=== PATIENT | female | born 1965 | race Caucasian/White ===

== ENCOUNTER 2018-01-05 11:10 | Emergency (ER) | payer MEDICAID, SELFPAY ==
[2018-01-05 11:18] VITALS: BP 162/67; PULSE 85; RESP 22; TEMP 37.2; O2SAT 99
[2018-01-05 12:00] LABS: Abs Immature Grans 0.02 k/cumm (0.0-0.09); Absolute Basophil Count 0.03 k/cumm (0.0-0.2); Absolute Eosinophil Count 0.13 k/cumm (0.0-0.7); Absolute Lymphocyte Count 3.31 k/cumm (1.2-3.4); Absolute Monocyte Count 0.45 k/cumm (0.11-0.7); Absolute Neutrophil Count 4.76 k/cumm (1.2-6.7); Basophils % 0.3; Eosinophils % 1.5; HCT 41.5 % (36.0-46.0); HGB 14.3 g/dL (12.0-15.5); Immature Grans % 0.2; Mean Corp. HGB Concentration 34.5 g/dL (32.0-36.0); Mean Corpuscular Hemoglobin 31.4 pg (27.0-33.0); Mean Platelet Volume 8.9 fL (8.0-11.0); Monocytes % 5.2; Neutrophils % 54.8; Platelet Count 421 x1000/uL (130-400); RBC 4.56 m/cumm (4.00-5.20); RBC Distribution Width 13.9 % (11.7-14.6)
--- NOTE | 2018-01-05 12:05 | DI.RAD_ITS ---
SYMPTOM/DIAGNOSIS: LT CHEST PAIN PA AND LATERAL CHEST: Comparison is made with 04/17/16. The heart is normal in size. The lungs are clear. The mediastinal structures and pleura appear intact. CONCLUSION: Normal chest.
[2018-01-05 12:16] LABS: ALT 38 U/L (12-78); AST 22 U/L (15-37); Albumin 3.8 g/dL (3.4-5.0); Alkaline Phosphatase 96 U/L (46-116); Anion Gap 8.4 mmol/L (3-11); BUN 9 mg/dL (7-18); Bilirubin, Total 0.3 mg/dL (0.2-1.0); CO2 29.6 mmol/L (21.0-32.0); Chloride 99 mmol/L (98-107); Glucose 123 mg/dL (70-100); Potassium 3.1 mmol/L (3.5-5.1); Sodium 137 mmol/L (136-145); Total Protein 7.4 g/dL (6.4-8.2); Troponin I < 0.02 ng/mL (0.00-0.06)
[2018-01-05 12:33] VITALS: RESP 18
[2018-01-05] MEDS: Aspirin 81 MG CHEW 324 MG CH (12:46)
[2018-01-05] MEDS: Potassium Chloride 20 MEQ TABCR 40 MEQ PO (13:28)
[2018-01-05 14:10] VITALS: BP 165/72; PULSE 75; RESP 16; O2SAT 97
[2018-01-05 14:34] LABS: Troponin I < 0.02 ng/mL (0.00-0.06)
--- NOTE | 2018-01-05 22:37 | ED.GENADUL_ITS ---
Discharge Plan Disposition Patient Disposition: HOME Condition: Good Discharge Details Chief Complaint: Chest Pain Clinical Impression: Acute hypokalemia, Chest pain Primary Care Provider: Speedy Prado ED Provider: Davin Willis Home Meds and New Rx's Prescriptions: No Action ranitidine HCl [Zantac Maximum Strength] 150 MG tablet 150 mg PO TID Qty: 90 RF: 3 lorazepam [Ativan] 1 MG tablet 1 mg PO HS Qty: 30 RF: 1 ibuprofen 800 MG tablet 800 mg PO PRN RF: 0 metoclopramide HCl 10 MG tablet 10 mg PO PRN MDD 20 Qty: 20 RF: 3 hydrochlorothiazide 25 MG tablet 25 mg PO DAILY Qty: 90 RF: 4 Discharge Instructions Instructions: Chest Pain (ED), Hypokalemia (ED) Additional Instructions: Please follow-up with your family doctor about further stress testing and workup as soon as possible. Please eat foods that are rich in potassium. If you notice any worsening of your symptoms, or any new symptoms such as vomiting , diarrhea, fever, chills, shortness of breath, chest pain, numbness, weakness, or fainting , please return immediately to the emergency department for reevaluation. Please follow up with your primary care provider as soon as possible for reassessment and reevaluation. As always, it was a pleasure participating in your medical care today. Referrals: Speedy Prado, [Primary Care Provider] - Discharge Data Discharge Date/Time-TO BE ENTERED AT DEPARTURE: 01/05/18 14:15 Medical Decision Making This is a pleasant 52-year-old female who presents for evaluation of chest pain. The pain has been going on for the last 5 days, it is nonexertional , nonpleuritic, and usually last for 3-5 seconds. It comes and goes on its own. 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 She does have reproducible components on exam. No other abnormalities on exam. Laboratory workup is benign demonstrates no acute process. She does demonstrate mild hypokalemia but no other significant abnormality. Serial troponins are negative. Chest x-ray is negative for any acute process. EKG shows no significant abnormalities. Heart score is 3, placing her in the low risk category. Patient's initial troponin and EKG were benign, however while waiting for her second troponin patient did request to leave. I did convince her to have the second troponin drawn, and we would contact her if it is positive. Repeat troponin did come back negative. With a low risk heart score, 2- troponins a benign EKG and a negative chest x-ray showing no acute process I feel that her symptoms are most likely musculoskeletal especially regards to the reproducible component. I discussed importance of close follow-up with her primary care provider, smoking cessation , and red flags for which to return. I have extensively reviewed the treatment plan and discharge instructions with the patient. I have addressed all patient concerns at this time. The patient was made aware of what symptoms to monitor for that would warrant a return to the emergency department. Discussed the plan with the patient, they demonstrate verbal understanding and agreement with our assessment and plan at this time. EKG 11: 24 Rate 77, intervals normal, sinus rhythm, RSR in V1, no significant ST elevations or depressions, no Q waves. Normal EKG. HPI General Date/Time Provider Initiated Documentation: 01/05/18 11:25 . HPI Narrative: This is a pleasant 52-year-old female with a past medical history of tobacco use, hypertension, hysterectomy since today for evaluation of chest pain. The patient states that for the last 5 days she has had a mild stabbing-like sensation of pain around her left breast. It does not radiate to her arm neck or shoulder. It is nonpleuritic. It is not worsened with movement, sitting forward, or other activity. She has no associated exertional component. She denies any aggravating or relieving component. The pain comes and goes and usually lasts a few seconds. 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 She denies any associated fevers or chills. She denies any hemoptysis, recent trauma, nausea, vomiting, or diarrhea. Patient denies any other modifying factors. She denies any recent surgeries, IV or illicit drug use, or pertinent family history. Denies PE risk factors such as recent long car rides, immobilization, recent surgery, prior history of DVT or PE, family history of PE or DVT, morbid obesity, exogenous estrogen and smoking, hemoptysis, history of cancer. Related Data Home Medications Medication Instructions Recorded Confirmed lorazepam [Ativan] 1 mg PO HS #30 tab 02/21/17 ranitidine HCl [Zantac] 150 mg PO TID #90 tab 05/24/16 ibuprofen 800 mg PO PRN 09/14/16 02/15/17 metoclopramide HCl 10 mg PO PRN #20 tab MDD 20 11/23/16 hydrochlorothiazide 25 mg PO DAILY #90 tab 10/31/17 Previous Rx's Medication Instructions Recorded hydrochlorothiazide 25 mg PO DAILY #90 tab 10/31/17 Allergies Allergy/AdvReac Type Severity Reaction Status Date / Time codeine AdvReac Severe GI UPSET Unverified 09/12/17 08:24 oxycodone AdvReac Severe GI UPSET Unverified 09/12/17 08:24 amlodipine AdvReac Mild edema Unverified 09/12/17 08:24 General Stated Complaint: Chest Pain SONIA: 3 Review of Systems Review of Systems All systems reviewed & are unremarkable except as noted in HPI and below PFSH Family History Mother Essential hypertension Father Essential hypertension Neoplasm Brother Essential hypertension Grandmother Neoplasm Cerebrovascular accident Grandmother Neoplasm Medical History Essential hypertension Gamekeeper thumb History of pancreatitis Tubular adenoma Umbilical hernia Social History Smoking/Tobacco Use Status: Current every day Surgical History Cervical Conization/LEEP section Colonoscopy - [facility] (02/15/17) Hysterectomy, Laproscopic (~1989) Repair of umbilical hernia knee repair Exam Narrative Exam Narrative: 1.Const: Well-nourished, Well-developed, appearing stated age 2.Eyes: PERRL, no conjunctival injection, and symmetrical lids. 3.ENT: Atraumatic external nose and ears. Moist MM. Neck: Symmetric, trachea midline, No thyromegaly. 4.CVS: +S1/S2, No murmurs or gallops. Peripheral pulses 2+ and equal in all extremities. Brisk capillary refill in all extremities. 5.RESP: Unlabored respiratory effort. Clear to auscultation bilaterally. No wheezes rales or rhonchi, mild reproducible chest pain noted on palpation over the patient's left breast. No signs of trauma, or rib abnormalities. 6.GI: Soft, Nontender/Nondistended, No hepatosplenomegaly. No guarding or rebound. 7.MSK: Normocephalic/Atraumatic, Extremities w/o deformity or ttp No cyanosis or clubbing, Normal movement of all extremities 8.Skin: Warm, Dry. No rashes or lesions. 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 Sensation grossly intact, no focal neurologic deficits. 10.Psych: (AAO) x3. Appropriate mood and affect Course Vital Signs Temperature 37.2 C 01/05/18 11:18 Pulse 85 01/05/18 11:18 Respiratory Rate 22 01/05/18 11:18 Blood Pressure 162/67 H 01/05/18 11:18 Pulse Oximetry 99 01/05/18 11:18 Temperature 37.2 C 01/05/18 11:18 Temperature Source Temporal Artery Scan 01/05/18 11:18 Pulse 75 01/05/18 14:10 Respiratory Rate 16 01/05/18 14:10 Respiratory Effort 01/05/18 12:33 Respiratory Depth Normal 01/05/18 12:33 Respiratory Pattern Normal 01/05/18 12:33 Blood Pressure 165/72 H 01/05/18 14:10 Pulse Oximetry 97 01/05/18 14:10 Oxygen Delivery Method Room Air 01/05/18 11:18 Oxygen Flow Rate 0 01/05/18 11:18 Pain Level 1 01/05/18 14:10 Lab/Test Results Lab/Test Results: Laboratory Tests Range/Units 01/05/18 01/05/18 01/05/18 11:05 11:05 14:09 WBC (4.4-10.8) k/cumm 8.70 RBC (4.00-5.20) m/cumm 4.56 Hgb (12.0-15.5) g/dL 14.3 Hct (36.0-46.0) % 41.5 MCV (80-95) fL 91.0 MCH (27.0-33.0) pg 31.4 MCHC (32.0-36.0) g/dL 34.5 RDW (11.7-14.6) % 13.9 Plt Count (130-400) x1000/uL 421 H MPV (8.0-11.0) fL 8.9 Immature Gran % 0.2 Neutrophils % 54.8 Lymphocytes % 38.0 Monocytes % 5.2 Eosinophils % 1.5 Basophils % 0.3 Absolute Neutrophils (1.2-6.7) k/cumm 4.76 Absolute Lymphocytes (1.2-3.4) k/cumm 3.31 Absolute Monocytes (0.11-0.7) k/cumm 0.45 Absolute Eosinophils (0.0-0.7) k/cumm 0.13 Absolute Basophils (0.0-0.2) k/cumm 0.03 Sodium (136-145) mmol/L 137 Potassium (3.5-5.1) mmol/L 3.1 L Chloride (98-107) mmol/L 99 Carbon Dioxide (21.0-32.0) mmol/L 29.6 Anion Gap (3-11) mmol/L 8.4 BUN (7-18) mg/dL 9 Creatinine (0.55-1.02) mg/dL 0.70 Estimated GFR/1.73 m2 (mL/min/1.73m2) >= 60.00 Glucose (70-100) mg/dL 123 H Calcium (8.5-10.1) mg/dL 9.0 Total Bilirubin (0.2-1.0) mg/dL 0.3 AST (15-37) U/L 22 ALT (12-78) U/L 38 Alkaline Phosphatase (46-116) U/L 96 Troponin I (0.00-0.06) ng/mL < 0.02 < 0.02 Total Protein (6.4-8.2) g/dL 7.4 Albumin (3.4-5.0) g/dL 3.8
== END 2018-01-05 14:15 | disposition home or self-care (01) ==
PROVIDERS: Emergency Provider Student in an Organized Health Care Education/Training Program; PCP Emergency Medicine
DX: R07.9 Chest pain, unspecified (principal); E87.6 Hypokalemia; I10 Essential (primary) hypertension
CPT/HCPCS: 36415; 80053; 93005; 99285; 71046; 84484; 85025; 93010

== ENCOUNTER 2018-01-11 01:32 | Outpatient (CLI) | payer MEDICAID, SELFPAY ==
--- NOTE | 2018-01-11 09:06 | DI.US_ITS ---
SYMPTOMS/DIAGNOSIS: ACUTE PANCREATITIS WITHOUT NECROSIS OR INFECTION, K85.90 ABDOMINAL ULTRASOUND: Comparison is made with April,. The liver is normal in size and echogenicity. No biliary dilatation is seen. No gallstones or gallbladder wall thickening is seen. The previously noted gallbladder polyps are not demonstrated on the current exam, which may be secondary to less gallbladder distention. The spleen, kidneys and pancreas are unremarkable. There is no fluid around the pancreas or visible focal collection. The aorta is normal in diameter. IMPRESSION: Negative abdominal ultrasound.
[2018-01-11 09:10] LABS: Abs Immature Grans 0.02 k/cumm (0.0-0.09); Absolute Basophil Count 0.04 k/cumm (0.0-0.2); Absolute Eosinophil Count 0.18 k/cumm (0.0-0.7); Absolute Monocyte Count 0.55 k/cumm (0.11-0.7); Absolute Neutrophil Count 5.82 k/cumm (1.2-6.7); Basophils % 0.4; HCT 41.5 % (36.0-46.0); HGB 14.4 g/dL (12.0-15.5); Immature Grans % 0.2; Lymphocytes % 28.2; Mean Corp. HGB Concentration 34.7 g/dL (32.0-36.0); Mean Corpuscular Hemoglobin 31.7 pg (27.0-33.0); Mean Corpuscular Volume 91.4 fL (80-95); Mean Platelet Volume 8.7 fL (8.0-11.0); Neutrophils % 63.2; Platelet Count 362 x1000/uL (130-400); RBC 4.54 m/cumm (4.00-5.20); RBC Distribution Width 13.8 % (11.7-14.6); White Blood Cell Count 9.21 k/cumm (4.4-10.8)
[2018-01-11 10:01] LABS: ALT 38 U/L (12-78); AST 19 U/L (15-37); Albumin 3.8 g/dL (3.4-5.0); Alkaline Phosphatase 88 U/L (46-116); Amylase 36 U/L (25-115); Anion Gap 9.8 mmol/L (3-11); BUN 8 mg/dL (7-18); Bilirubin, Total 0.4 mg/dL (0.2-1.0); CO2 30.2 mmol/L (21.0-32.0); CREATININE 0.66 mg/dL (0.55-1.02); Calcium 9.3 mg/dL (8.5-10.1); Chloride 101 mmol/L (98-107); Glucose 93 mg/dL (70-100); Lipase 130 U/L (73-393); Potassium 3.5 mmol/L (3.5-5.1); Sodium 141 mmol/L (136-145)
== END 2018-01-11 01:52 ==
PROVIDERS: PCP Emergency Medicine; Visit Provider Emergency Medicine
DX: K85.90 Acute pancreatitis without necrosis or infection, unspecified (principal)
CPT/HCPCS: 36415; 80053; 83690; 76700; 82150; 85025

== ENCOUNTER 2018-05-04 08:27 | Emergency (ER) | payer MEDICAID, SELFPAY ==
[2018-05-04] VITALS (24 sets, daily range): BP systolic 123–167; BP diastolic 60–77; PULSE 72–118; RESP 13–24; TEMP 36.7; O2SAT 95–100
--- NOTE | 2018-05-04 09:02 | ED.GENADUL_ITS ---
Discharge Plan Disposition Patient Disposition: HOME Condition: Improving Discharge Details Chief Complaint: Chest Pain Clinical Impression: Pleurisy Primary Care Provider: Speedy Prado ED Provider: Andre Bingham Home Meds and New Rx's Prescriptions: New ibuprofen 800 mg tablet 800 mg PO BID Qty: 10 RF: 0 Continued ranitidine HCl [Zantac Maximum Strength] 150 mg tablet 150 mg PO TID Qty: 90 RF: 3 lorazepam [Ativan] 1 MG tablet 1 mg PO HS Qty: 30 RF: 1 ibuprofen 800 MG tablet 800 mg PO PRN RF: 0 metoclopramide HCl 10 MG tablet 10 mg PO PRN MDD 20 Qty: 20 RF: 3 hydrochlorothiazide 25 MG tablet 25 mg PO DAILY Qty: 90 RF: 4 Discharge Instructions Instructions: Pleurisy (ED) Additional Instructions: Ibuprofen 800 mg twice a day for 3-4 days time. Please increase your ranitidine to 150 mg twice daily while taking this medication Please follow-up with Dr. Prado in 5 days time if not improving. Return to the emerge department she developed a rash, worsening discomfort, or any other acute concerns Medical Decision Making 52-year-old female presents stating she woke this morning with sweat pouring off me and with intermittent episodes of left shoulder aching pain that seems to radiate down her arm. She has history of hypertension, continues to smoke and drink alcohol. Differential diagnosis today includes acute coronary syndrome, pneumonia, pulmonary embolism, gastritis, pancreatitis. She had IV access established, placed in a weld inspector, stat EKG obtained without evidence of ST elevation. Patient given fluids and antiemetic with parenteral analgesic. Labs show white count of 9, hematocrit 44, platelets 471. Chemistries reassuring with normal LFTs. Troponin is negative x2 and cardiac monitoring unremarkable. Chest x-ray without focal findings and see CT scan of the chest unremarkable. Patient improved and with no further numbness or tingling of the upper extremity and no discomfort of the chest. She may have pleurisy and will consider treat with a course of NSAIDs. Discussed with her return precautions as well as plan of outpatient care. She is stable for discharge at this time Lab Data Lab results reviewed: Yes I reviewed the patient's lab results. Laboratory Results - last 24 hr 05/04/18 05/04/18 05/04/18 09:17 09:17 09:17 WBC 9.45 RBC 5.00 Hgb 15.7 H Hct 44.4 MCV 88.8 MCH 31.4 MCHC 35.4 RDW 13.9 Plt Count 471 H MPV 8.6 Immature Gran % 0.3 Neutrophils % 69.4 Lymphocytes % 23.6 Monocytes % 5.2 Eosinophils % 1.0 Basophils % 0.5 Absolute Neutrophils 6.56 Absolute Lymphocytes 2.23 Absolute Monocytes 0.49 Absolute Eosinophils 0.09 Absolute Basophils 0.05 PT 9.3 INR 0.9 APTT 24.5 D-Dimer Sodium 137 Potassium 3.7 Chloride 96 L Carbon Dioxide 32.0 Anion Gap 9.0 BUN 12 Creatinine 0.76 Estimated GFR/1.73 m2 >= 60.00 Glucose 112 H Calcium 9.9 Total Bilirubin 0.3 AST 20 ALT 35 Alkaline Phosphatase 99 Troponin I Total Protein 8.5 H Albumin 4.2 Lipase 277 05/04/18 05/04/18 05/04/18 09:17 09:17 11:35 WBC RBC Hgb Hct MCV MCH MCHC RDW Plt Count MPV Immature Gran % Neutrophils % Lymphocytes % Monocytes % Eosinophils % Basophils % Absolute Neutrophils Absolute Lymphocytes Absolute Monocytes Absolute Eosinophils Absolute Basophils PT INR APTT D-Dimer 326 Sodium Potassium Chloride Carbon Dioxide Anion Gap BUN Creatinine Estimated GFR/1.73 m2 Glucose Calcium Total Bilirubin AST ALT Alkaline Phosphatase Troponin I < 0.02 < 0.02 Total Protein Albumin Lipase ECG Data Attestation: I personally reviewed and interpreted this ECG (s) as follows: Interpretation: Normal sinus rhythm, rate of 72, the QRS is narrow, no ST segment elevation, nondiagnostic T wave inversion in lead III. HPI General Mode of arrival: ambulatory . Date/Time Provider Initiated Documentation: 05/04/18 08:40 . Limitations to Documentation: no limitations . Information obtained by: patient . History of Present Illness 52 year old F presents to the emergency department with the chief complaint of Left arm pain, sweaty. Began this morning, described as moderate, Quality is described as dull, and is localized to the chest and left. Patient extremity. Patient started experiencing this hour(s) and it has been intermittent. No relieving factors improve symptom(s), No exacerbating factors reported . Patient notes diaphoresis and other (Intermittent numbness and tingling of left arm). Patient did receive the following treatments prior to arrival, none Related Data Home Medications Medication Instructions Recorded Confirmed lorazepam [Ativan] 1 mg PO HS #30 tab 05/24/16 05/04/18 ibuprofen 800 mg PO PRN 09/14/16 05/04/18 metoclopramide HCl 10 mg PO PRN #20 tab MDD 20 11/23/16 05/04/18 hydrochlorothiazide 25 mg PO DAILY #90 tab 10/31/17 05/04/18 ranitidine 150 mg tablet 150 mg PO TID #90 tab 01/12/18 05/04/18 ibuprofen 800 mg PO BID #10 tab 05/04/18 Previous Rx's Medication Instructions Recorded hydrochlorothiazide 25 mg PO DAILY #90 tab 10/31/17 ranitidine 150 mg tablet 150 mg PO TID #90 tab 01/12/18 ibuprofen 800 mg PO BID #10 tab 05/04/18 Allergies Allergy/AdvReac Type Severity Reaction Status Date / Time codeine AdvReac Severe GI UPSET Verified 05/04/18 09:13 oxycodone AdvReac Severe GI UPSET Verified 05/04/18 09:13 amlodipine AdvReac Mild edema Verified 05/04/18 09:13 General SONIA: 3 Review of Systems Review of Systems 8 systems reviewed and otherwise negative [facility] Medical History Essential hypertension Gamekeeper thumb History of pancreatitis Tubular adenoma Umbilical hernia Surgical History Cervical Conization/LEEP section Colonoscopy - [facility] (02/15/17) Hysterectomy, Laproscopic (~1989) Repair of umbilical hernia knee repair Family History Mother Essential hypertension Father Essential hypertension Neoplasm Brother Essential hypertension Grandmother Neoplasm Stroke Grandmother Neoplasm Social History Smoking/Tobacco Use Status: Current every day Exam Narrative Exam Narrative: GEN: awake, alert, oriented 3. Pleasant, well groomed, interactive. HEAD: Normocephalic, atraumatic ENT: Mucous membranes moist, oropharynx unremarkable, External ear exam unremarkable EYES: PERRL, EOMI NECK: Full ROM, no NIECY, no menigismus CHEST/RESP: Nontender, clear to auscultation bilateral, no wheeze/rhonchi/rales CARDIOVASCULAR: RRR, no murmur, rub ronald. 2+ Rad pulse bilateral ABDOMEN: Soft, nontender, no mass. +Bowel sounds EXT: Full ROM, no edema, no rash, sensation intact throughout the bilateral upper and lower extremity. Motor grade is 5 out of 5 Neuro: Grossly normal neurologic exam, conversant, interactive. Cranial nerves II through XII intact Psych: Speech fluent, thoughts congruent, affect normal
--- NOTE | 2018-05-04 09:02 | DI.RAD_ITS ---
SYMPTOM/DIAGNOSIS: LT ARM PAIN PA AND LATERAL CHEST: 05/04/18 The heart is normal in size. The lungs are clear. The mediastinal structures and pleura appear intact. CONCLUSION: Normal chest.
[2018-05-04] MEDS: Normal Saline 1,000 ML 150 ML IV (09:24)
[2018-05-04 09:28] LABS: Abs Immature Grans 0.03 k/cumm (0.0-0.09); Absolute Basophil Count 0.05 k/cumm (0.0-0.2); Absolute Eosinophil Count 0.09 k/cumm (0.0-0.7); Absolute Lymphocyte Count 2.23 k/cumm (1.2-3.4); Absolute Monocyte Count 0.49 k/cumm (0.11-0.7); Absolute Neutrophil Count 6.56 k/cumm (1.2-6.7); Basophils % 0.5; HCT 44.4 % (36.0-46.0); HGB 15.7 g/dL (12.0-15.5); Immature Grans % 0.3; Lymphocytes % 23.6; Mean Corp. HGB Concentration 35.4 g/dL (32.0-36.0); Mean Corpuscular Hemoglobin 31.4 pg (27.0-33.0); Mean Corpuscular Volume 88.8 fL (80-95); Mean Platelet Volume 8.6 fL (8.0-11.0); Monocytes % 5.2; Neutrophils % 69.4; Platelet Count 471 x1000/uL (130-400); RBC Distribution Width 13.9 % (11.7-14.6); White Blood Cell Count 9.45 k/cumm (4.4-10.8)
[2018-05-04 09:40] LABS: INR 0.9 (0.9-1.1); PTT Activated 24.5 sec (21.0-31.4); Prothrombin Time 9.3 sec (9.3-11.0)
[2018-05-04 09:49] LABS: ALT 35 U/L (12-78); AST 20 U/L (15-37); Albumin 4.2 g/dL (3.4-5.0); Alkaline Phosphatase 99 U/L (46-116); BUN 12 mg/dL (7-18); Bilirubin, Total 0.3 mg/dL (0.2-1.0); CREATININE 0.76 mg/dL (0.55-1.02); Chloride 96 mmol/L (98-107); Glucose 112 mg/dL (70-100); Lipase 277 U/L (73-393); Potassium 3.7 mmol/L (3.5-5.1); Sodium 137 mmol/L (136-145); Total Protein 8.5 g/dL (6.4-8.2)
[2018-05-04 09:53] LABS: Calcium 9.9 mg/dL (8.5-10.1)
[2018-05-04 09:56] LABS: D-Dimer 326 ng/mlFEU (<500)
[2018-05-04 09:57] LABS: Troponin I < 0.02 ng/mL (0.00-0.06)
--- NOTE | 2018-05-04 10:09 | DI.CT_ITS ---
SYMPTOM/DIAGNOSIS: LT UPPER CHEST PAIN, LT SHOULDER AND ARM PAIN CT ANGIOGRAPHY CHEST: 05/04/18 CT angiography was performed with multi slice acquisition and multi planar and 3D reconstruction. CT angiography of the chest was performed with a bolus infusion of 100 cc Omnipaque 350. Images obtained through the upper abdomen show unremarkable appearance of visualized portions of liver, spleen, kidneys, pancreas and adrenals. No evidence of pulmonary embolic disease. No thoracic aortic aneurysm or dissection. No mediastinal or hilar adenopathy. Tracheobronchial tree appears intact. There is mild diffuse central lobular emphysema and some subpleural emphysematous changes noted at the pulmonary apices. No pleural effusion seen. CONCLUSION: No evidence of pulmonary embolic disease.
[2018-05-04] MEDS: Omnipaque 350 MG/ML 100 ML BTL IJ (10:50)
[2018-05-04] MEDS: Ketorolac 30 MG/ML VIAL IVP (11:25)
[2018-05-04] MEDS: Ondansetron 4 MG/2 ML VIAL IVP (11:26)
[2018-05-04 12:02] LABS: Troponin I < 0.02 ng/mL (0.00-0.06)
== END 2018-05-04 13:41 | disposition home or self-care (01) ==
PROVIDERS: Emergency Provider Emergency Medicine; PCP Emergency Medicine
DX: R09.1 Pleurisy (principal); M25.512 Pain in left shoulder; I10 Essential (primary) hypertension
CPT/HCPCS: 36415; 71275; 80053; 83690; 87449; 93005; 96361; 96374; 96375; 99285; 71046; 84484; 85025; 85379; 85610; 85730; 93010; J1885; J2405; J3490

== ENCOUNTER 2018-11-22 09:41 | Outpatient (CLI) | payer MEDICAID, SELFPAY ==
[2018-11-22 10:28] LABS: Abs Immature Grans 0.01 k/cumm (0.0-0.09); Absolute Basophil Count 0.03 k/cumm (0.0-0.2); Absolute Eosinophil Count 0.14 k/cumm (0.0-0.7); Absolute Lymphocyte Count 2.63 k/cumm (1.2-3.4); Absolute Monocyte Count 0.43 k/cumm (0.11-0.7); Absolute Neutrophil Count 4.44 k/cumm (1.2-6.7); Basophils % 0.4; Eosinophils % 1.8; HCT 40.8 % (36.0-46.0); HGB 14.1 g/dL (12.0-15.5); Immature Grans % 0.1; Lymphocytes % 34.2; Mean Corp. HGB Concentration 34.6 g/dL (32.0-36.0); Mean Corpuscular Hemoglobin 31.5 pg (27.0-33.0); Mean Corpuscular Volume 91.3 fL (80-95); Mean Platelet Volume 8.8 fL (8.0-11.0); Monocytes % 5.6; Neutrophils % 57.9; Platelet Count 425 x1000/uL (130-400); RBC 4.47 m/cumm (4.00-5.20); White Blood Cell Count 7.68 k/cumm (4.4-10.8)
[2018-11-22 12:24] LABS: ALT 33 U/L (12-78); AST 14 U/L (15-37); Albumin 3.9 g/dL (3.4-5.0); Alkaline Phosphatase 89 U/L (46-116); Amylase 48 U/L (25-115); Anion Gap 8.6 mmol/L (3-11); BUN 10 mg/dL (7-18); Bilirubin, Total 0.1 mg/dL (0.2-1.0); CO2 31.4 mmol/L (21.0-32.0); Calcium 9.5 mg/dL (8.5-10.1); Chloride 100 mmol/L (98-107); Glucose 94 mg/dL (70-100); Potassium 4.1 mmol/L (3.5-5.1); Sodium 140 mmol/L (136-145); Total Protein 7.2 g/dL (6.4-8.2)
== END 2018-11-22 10:01 ==
PROVIDERS: PCP Emergency Medicine; Visit Provider Nurse Practitioner
DX: R19.8 Other specified symptoms and signs involving the digestive system and abdomen (principal)
CPT/HCPCS: 36415; 80053; 82150; 85025

== ENCOUNTER 2018-11-27 01:06 | Outpatient (CLI) | payer MEDICAID, SELFPAY ==
--- NOTE | 2018-11-27 08:16 | DI.MAMMO_ITS ---
SYMPTOM/DIAGNOSIS: SCREENING Z12.31 BILATERAL SCREENING MAMMOGRAM: Mammograms were interpreted according to the usual protocol including computer analysis with CAD system, tomosynthesis and C view imaging. Comparison is made with exams from 2010 through 2017 The breasts are composed of heterogeneously dense fibroglandular tissue, breast density category C. There is motion on the left MLO view. No suspicious masses or suspicious microcalcifications are seen. IMPRESSION: Category 0. The patient should return for repeat left MLO view. Breast density category C. MQSA ASSESSMENT OF FINDINGS: Incomplete: Needs additional imaging evaluation. Category 0. Patient will receive a letter notifying them of these results. Bi-RADS category C. The breasts are heterogeneously dense, which may obscure small masses.
== END 2018-11-27 01:26 ==
PROVIDERS: PCP Emergency Medicine; Visit Provider Emergency Medicine
DX: Z12.31 Encounter for screening mammogram for malignant neoplasm of breast (principal); R92.8 Other abnormal and inconclusive findings on diagnostic imaging of breast
CPT/HCPCS: 77063; 77067

== ENCOUNTER 2018-11-30 00:40 | Outpatient (CLI) | payer MEDICAID, SELFPAY ==
--- NOTE | 2018-11-30 09:51 | DI.MAMMO_ITS ---
SYMPTOM/DIAGNOSIS: F/U MAMMO, MOTION ON LT MLO VIEW REPEAT LEFT MLO VIEW: Additional images are interpreted according to the usual protocol including tomosynthesis and 2D imaging. The patient returned for repeat left MLO views due to motion. The patient does not tolerate compression. No masses or suspicious calcifications are seen. There has been no significant change. IMPRESSION: Category 1, negative mammogram. Yearly screening mammography is recommended. Breast density category C. MQSA ASSESSMENT OF FINDINGS: Negative. Category 1. Patient will receive a letter notifying them of these results. Bi-RADS category C. The breasts are heterogeneously dense, which may obscure small masses.
== END 2018-11-30 01:00 ==
PROVIDERS: PCP Emergency Medicine; Visit Provider Emergency Medicine
DX: Z12.31 Encounter for screening mammogram for malignant neoplasm of breast (principal); R94.8 Abnormal results of function studies of other organs and systems
CPT/HCPCS: 77063; 77067

== ENCOUNTER 2019-01-09 06:14 | Day surgery (SDC) | payer MEDICAID, SELFPAY ==
[2019-01-09] VITALS (15 sets, daily range): BP systolic 103–162; BP diastolic 55–121; PULSE 64–89; RESP 12–19; TEMP 35.4–37.4; O2SAT 88–99
--- NOTE | 2019-01-09 06:17 | W.PM.HP.N ---
Date of service: 01/09/19 Assessment and Plan Assessment and plan (1) Recurrent ventral hernia: Status: Acute Assessment and plan: A\\ Recurrent umbilical and epigastric hernias P\\ Laparoscopic hernia repair with mesh Risks, benefits, complications were reviewed with the patient. Complications include but are not limited to bleeding, infection, recurrence, injury to underlying bowel, and adverse reaction to the medications. Questions were entertained and answered to her satisfaction and she wished to proceed. No guarantees were given or implied. History of Present Illness Narrative: Natali is aseeing me today for a hernia recurrence. She had a small umbilical and nelia-umbilical hernia repaired a few years ago. No mesh was used due to the small size of the hernias. Unfortunately 4-5 weeks ago she noticed discomfort and a bulge. 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 She denies any N/V or changes in bowel habits. umbilical Yes 1-3 months heavy lifting and long standing denies chills, constipation, cramping, diarrhea, fever(s), nausea, vomiting or other There have been no changes in her health since she was last seen in the office. Review of Systems Constitutional Constitutional: Denies fever(s) and Denies headache(s) Eyes Eyes: Denies change in vision ENT Ears, Nose, Mouth, and Throat: Denies dysphagia and Denies headache(s) Cardiovascular Cardiovascular: Denies chest pain, Denies palpitations, Denies dyspnea and Denies dyspnea on exertion Respiratory Respiratory: Denies chest congestion, Denies cough, Denies dyspnea and Denies dyspnea on exertion Gastrointestinal Gastrointestinal: Reports as per HPI, Denies dysphagia and Denies dyspepsia Genitourinary Genitourinary: Denies hematuria and Denies dysuria Neurologic Neurologic: Denies headache(s) Endocrine Endocrine: Denies palpitations [facility] Medical History Essential hypertension Gamekeeper thumb History of pancreatitis Tubular adenoma Umbilical hernia Surgical History (Updated 01/09/19 @ 06:24 by Lou Baker RN) Cervical Conization/LEEP section Colonoscopy - [facility] [place] (02/15/17) H/O thumb surgery (Acute) on right side only Hysterectomy, Laproscopic (~1989) ovaries remain knee repair lateral release left knee and right per patient Repair of umbilical hernia 2013 Family History Mother Essential hypertension Father Essential hypertension Neoplasm COLON Brother Essential hypertension Grandmother Neoplasm LUNG/BRAIN Stroke Grandmother Neoplasm COLON Social History Smoking/Tobacco Use Status: Current every day Tobacco Type: cigarettes Alcohol Intake: current Alcohol Intake frequency: 0-2 drinks per day Alcohol type: beer Drug use: Never Substance use type: does not use Details: pt states 2-4 drinks per day Do you feel safe at home: Yes Do you feel safe in your relationship?: Yes Additional Social history: No Meds Home Medications and Allergies Home Medications Medication Instructions Recorded Confirmed Type lorazepam [Ativan] 1 mg PO HS #30 tab 05/24/16 01/04/19 History metoclopramide HCl 10 mg PO PRN #20 tab MDD 20 11/23/16 01/04/19 History ibuprofen 800 mg tablet 800 mg PO PRN #30 tab 05/11/18 01/04/19 Rx hydrochlorothiazide 25 mg tablet 25 mg PO DAILY #90 tab 11/06/18 01/04/19 Rx Allergies Allergy/AdvReac Type Severity Reaction Status Date / Time codeine AdvReac Severe GI UPSET Verified 01/09/19 06:24 oxycodone AdvReac Severe GI UPSET Verified 01/09/19 06:24 amlodipine AdvReac Mild edema Verified 01/09/19 06:24 Exam HENMT Head: normocephalic and atraumatic Eyes Pupils: PERRL Resp Effort & Inspection: normal respiratory effort Auscultation: clear to auscultation bilaterally Cardio Rate: regular rate Rhythm: regular rhythm Heart Sounds: no gallops, murmur and rub GI Palpation: soft and hernia
--- NOTE | 2019-01-09 06:30 | ROE_ITS ---
Date of service: 01/09/19 Time of Service: 08:49 Operative Note Operative Note DATE OF PROCEDURE: 01/09/19 PRE-OP DIAGNOSIS: Recurrent umbilical hernia POST-OP DIAGNOSIS: same PROCEDURE: Laparoscopic Hernia repair with mesh SURGEON: Yvonne Wood DERMATOLOGIST AND DERMATOPATHOLOGIST: Chel Geller ANESTHESIA: GETA (ASA 2 / Adair Shanks CRNA) ESTIMATED BLOOD LOSS: 3 PATHOLOGY: none sent COMPLICATIONS: None Patient was transported to: PACU Patient's condition: stable Implants: Ventralex ST Mesh with ECHO PS Positioning System REF [id number] 2020-05-31 Indications: Mrs. Ibanez is a pleasant 53 year old s/p primary umbilical hernia repair who has had a recurrence of her hernia. Laparoscopic repair was recommended. Risks, benefits and complications have been reviewed. Complications include but are not limited to bleeding, pain, infection, injury to underlying structures like bowel and adverse reaction to the medication. Questions were entertained and answered to their satisfaction and they wished to proceed. No guarantees were given or implied. Findings: Small 2 cm hernia just above the umbilicus Procedure Description: After informed consent was obtained the patient was taken to the operating room placed in the supine position SCDs were applied as well as monitors. A timeout was done. The patient was then placed under general anesthesia and intubated without any difficulty. At this point the abdomen was prepped and draped in a sterile surgical fashion with chlorhexidine. A second timeout was done and the patient's name, date of , operation to be performed, DVT prophylaxis, antibiotic given, and fire risk was assessed. 1% Percent lidocaine was injected into the dermis in the right lower quadrant. A small 5 mm incision was made with an 11 blade. The skin was graspe d with penetrating towel clamps on either side of the incision and then using a Visiport a 5 mm port was placed under direct visualization into the abdomen. The abdomen was insufflated and the umbilicus was identified. Just above the umbilicus at the site of her previous repair there was a small 2 cm hernia. Some fatty tissue was noted withing the hernia. Local anesthetic was then injected in the Right Upper Quadrant. A small 5 mm incision was made with an 11 blade and another 5 mm port was placed under direct visualization into the abdomen. Using a laparoscopic Ligasure the fatty tissue was removed from the hernia defect. The local anesthetic was then injected in the left lower quadrant area and a 11 mm incision was made with an 11 blade. A 11 mm port was then placed under direct visualization. Local was then injected in the LUQ and a 5 mm incision was made with an 11 blade and another 5 mm port was placed under direct visualization. No active bleeding was noted. A 4.5 inch ECHO PS FREDRICK mesh was placed into the abdomen through the 11 port site. A small puncture was made over the hernia defect and using a Nabil Pepito and the blue insuflation piece of the mesh was pulled up. The balloon along the mesh was inflated. The mesh was pulled up and secured by placing a hemostat on the insuflation catheter. Using a 5 mm Tacker, the mesh was tacked up to the abdominal wall circumferentially. Once in good position the mesh balloon was deflated and removed through the 11 port site. The omentum was inspected one more time and no bleeding was noted. Good coverage of the hernia was noted with this mesh. The 5 mm ports were removed under direct visualization and there was no bleeding from the fascia. The last 11 mm port was removed. The fascia of the 11 mm port site was closed with a 0 Vicryl figure of eight stitch. The skin of all the port sites were then closed with 4-0 Vicryl. The skin was cleaned and dried and skin affix was applied. The patient was woken up extubated and taken back to recovery room in stable condition. There were no immediate complications. Sponge, instrument and needle counts were correct at the end of the case x2.
--- NOTE | 2019-01-09 06:33 | PDOC.DSDIS_ITS ---
Discharge Plan Disposition Patient Disposition: HOME Condition: Good Discharge Details Reason For Visit: recurrent umbilical hernia Attending Provider: Yvonne Wood Primary Care Provider: Speedy Prado Home Meds and New Rx's Prescriptions: New acetaminophen [Tylenol] 325 mg tablet 650 mg PO Q6H PRN (Reason: pain) Qty: 30 RF: 0 Continued ibuprofen 800 mg tablet 800 mg PO PRN Qty: 30 RF: 1 lorazepam [Ativan] 1 MG tablet 1 mg PO HS Qty: 30 RF: 1 metoclopramide HCl 10 MG tablet 10 mg PO PRN MDD 20 Qty: 20 RF: 3 hydrochlorothiazide 25 mg tablet 25 mg PO DAILY Qty: 90 RF: 4 Discharge Instructions Instructions: Laparoscopic Herniorrhaphy (DC) Additional Instructions: Activity at Home after surgery: 1. Make sure you walk outside at least 4 times per day 2. You should be able to climb a flight of stairs 3. No driving while in pain or taking pain medications 4. No strenuous activity or heavy lifting for 2 weeks Diet, Nutrition, & wound healin. Avoid alcohol until after you are recovered from your surgery 2. Make sure to eat plenty of lean protein (meat, fish, eggs, cottage cheese, beans) 3. Eat a variety of fruits and vegetables. Eat plenty of high fiber foods to avoid constipation. 4. Drink plenty of liquids to stay hydrated and avoid constipation Pain Medications: 1. Alternate Tylenol 650 mg every 6 hours and Ibuprofen 600 mg every 6 hours as needed for pain 2. If a narcotic has been prescribed take as directed only for breakthrough pain For Constipation: 1. Take Milk of Magnesia or MiraLax as needed for constipation Other: 1. You may shower daily. Do not scrub the incisions 2. Do not soak the incisions for 1 week 3. You may alternate ice and heat as needed for pain and swelling Wound Care: 1. Keep the incisions clean and dry Please call our office if you develop: 1. Fevers >101.5 2. Nausea or Vomiting 3. Worsening pain 4. Redness and thick discharge from the wounds If after hours please call the Hospital at and ask to speak to the on-call surgeon Stand Alone Forms: Yudelka MACIAS) Referrals: Yvonne Wood MD [ [facility] STAFF PHYSICIAN] - 01/25/19 9:30 am Activity:: No lifting, pushing or pulling >20 lb x 2 weeks Diet:: As Tolerated Discharge Orders Discharge Orders: Discharge Order (Routine); Ordered 01/09/19 Ordered By: Yvonne Wood DS: Diagnosis Discharge Diagnosis (1) Recurrent ventral hernia: Status: Acute
[2019-01-09] MEDS: Acetaminophen 500 MG TAB 1000 MG PO (07:04)
[2019-01-09] MEDS: Celecoxib 200 MG CAP PO (07:05)
[2019-01-09] MEDS: Lactated Ringers 1,000 ML 80 ML IV (07:08)
[2019-01-09] MEDS: Lidocaine 1% Multi-Dose 50 ML VIAL (08:47)
[2019-01-09] MEDS: Bupivacaine LIPOSOME/PF 133 MG/10 ML VIAL IJ (08:47)
[2019-01-09] MEDS: Ketorolac 30 MG/ML VIAL IVP (09:30)
[2019-01-09] MEDS: ACETAMINOPHEN 1,000 MG/100 ML BTL 400 MG IVPB (09:43)
[2019-01-09] MEDS: HYDROmorphone 2 MG/ML VIAL IVP ×4 (10:29→11:05)
== END 2019-01-09 14:25 | disposition home or self-care (01) ==
PROVIDERS: PCP Emergency Medicine; Visit Provider Surgery
PROC: 0WQF4ZZ Repair Abdominal Wall, Percutaneous Endoscopic Approach (ICD-10-PCS; CPT 49652; principal; 2019-01-09 07:30)
DX: K42.9 Umbilical hernia without obstruction or gangrene (principal); I10 Essential (primary) hypertension
CPT/HCPCS: 49652; NC; C1781; J0131; J1885

== ENCOUNTER 2019-04-21 10:07 | Emergency (ER) | payer MEDICAID, SELFPAY ==
[2019-04-21 10:10] VITALS: BP 170/97; PULSE 89; RESP 20; TEMP 36.8; O2SAT 98
--- NOTE | 2019-04-21 10:20 | W.ED.GENAD ---
Discharge Plan Disposition Patient Disposition: HOME Condition: Improving Discharge Details Chief Complaint: Orthopedic Clinical Impression: Calcific tendinitis of left shoulder Primary Care Provider: Speedy Prado ED Provider: Andre Bingham Home Meds and New Rx's Prescriptions: Continued ibuprofen 800 mg tablet 800 mg PO PRN Qty: 30 RF: 1 lorazepam [Ativan] 1 MG tablet 1 mg PO HS Qty: 30 RF: 1 metoclopramide HCl 10 MG tablet 10 mg PO PRN MDD 20 Qty: 20 RF: 3 hydrochlorothiazide 25 mg tablet 25 mg PO DAILY Qty: 90 RF: 4 acetaminophen [Tylenol] 325 mg tablet 650 mg PO Q6H PRN (Reason: pain) Qty: 30 RF: 0 Discharge Instructions Instructions: Tendinitis (ED) Additional Instructions: Wear sling for comfort 2 to 3 days time. Begin early range of motion exercises as we discussed. May apply ice to area to reduce discomfort. Remove Lidoderm patch in 12 hours time. May continue the use of Tylenol and ibuprofen as needed for pain. Return if you develop a fever, rash, worsening discomfort, or any other acute concerns. Medical Decision Making 53-year-old female presents from home stating that after helping a friend with some house chores including moving boxes and packing, she developed achy left sided shoulder and chest discomfort that was worse with trying to adjust her seatbelt in the car. She denies direct trauma, no recent illness, she has not had chest pain or shortness of breath. The patient's vital signs are unremarkable but do note blood pressure 170/97. She is tender overlying the proximal humeral head. Screening EKG obtained, patient referred for x-ray this does not show evidence of acute fracture, but does illustrate calcific densities consistent with calcific tendinitis. Patient consented for injection with Kenalog and Marcaine. Which was performed without difficulty. She will use a sling for rest for 2 days time. She understands homecare as well as indications to seek reevaluation. ECG Data Attestation: I personally reviewed and interpreted this ECG (s) as follows: Interpretation: Normal sinus rhythm, rate of 80, QRS is narrow, intervals are unremarkable, there is isolated nonspecific T wave flattening in lead V2 and lead III, no ST segment elevation. HPI General Mode of arrival: ambulatory. Date/Time Provider Initiated Documentation: 04/21/19 10:08. Limitations to Documentation: no limitations. Information obtained by: patient. History of Present Illness 53 year old F presents to the emergency department with the chief complaint of Left shoulder pain, described as moderate, Quality is described as aching, and is localized to the left and upper extremity. Patient reports no radiation. Patient started experiencing this hour(s) and it has been constant. Rest improves symptom(s), Movement worsens symptoms . Patient notes other (Denies injury); denies chest pain, rash and shortness of breath. Patient did receive the following treatments prior to arrival, none Related Data Home Medications Medication Instructions Recorded Confirmed lorazepam [Ativan] 1 mg PO HS #30 tab 05/24/16 04/21/19 metoclopramide HCl 10 mg PO PRN #20 tab MDD 20 11/23/16 04/21/19 ibuprofen 800 mg tablet 800 mg PO PRN #30 tab 05/11/18 04/21/19 hydrochlorothiazide 25 mg tablet 25 mg PO DAILY #90 tab 11/06/18 04/21/19 acetaminophen [Tylenol] 650 mg PO Q6H PRN #30 tab 01/09/19 04/21/19 Previous Rx's Medication Instructions Recorded ibuprofen 800 mg tablet 800 mg PO PRN #30 tab 05/11/18 hydrochlorothiazide 25 mg tablet 25 mg PO DAILY #90 tab 11/06/18 acetaminophen [Tylenol] 650 mg PO Q6H PRN #30 tab 01/09/19 Allergies Allergy/AdvReac Type Severity Reaction Status Date / Time codeine AdvReac Severe GI UPSET Verified 04/21/19 10:13 oxycodone AdvReac Severe GI UPSET Verified 04/21/19 10:13 amlodipine AdvReac Mild edema Verified 04/21/19 10:13 General Stated Complaint: Orthopedic SONIA: 4 Review of Systems Narrative: Recent change in activity helping a friend. No fall or injury. Minimally improved with ibuprofen at home. No shortness of breath or cough. 6 systems reviewed and otherwise negative. [facility] [place] Medical History Dysfunctional uterine bleeding (Inactive 03/02/97) S/P hyst./ovaries remain Dysfunctional uterine bleeding (Inactive 03/02/97) Essential hypertension Essential hypertension (Inactive) Gamekeeper thumb Gastritis and duodenitis (Inactive) Gastroesophageal reflux disease (Inactive) History of pancreatitis Idiopathic acute pancreatitis without infection or necrosis (Inactive 05/11/16) Left carpal tunnel syndrome (Inactive 02/21/17) 01/04/19 per patient she is Not aware of this diagnoses bmr Pneumonia of left lower lobe due to infectious organism (Inactive 03/02/03) LLL Pneumonia of left lower lobe due to infectious organism (Inactive 03/02/03) Polyp of colon (Inactive 08/08/08) 08/09 COLONOSCOPY: ONE TUBULAR ADENOMA; F/H COLON CA Recurrent ventral hernia (Inactive) Transient synovitis, right wrist (Inactive 05/11/16) Umbilical hernia Surgical History Cervical Conization/LEEP Colonoscopy - MAC (02/15/17) H/O thumb surgery (Acute) on right side only History of section (Inactive) History of umbilical hernia repair (Resolved) 2013 Hysterectomy, Laproscopic (~1989) ovaries remain knee repair lateral release left knee and right per patient S/P recurrent ventral herniorrhaphy (Acute) 01/19 Status post laparoscopic hysterectomy (Inactive) Status post LEEP (loop electrosurgical excision procedure) of cervix (Inactive) Social History Smoking/Tobacco Use Status: Current every day Tobacco Type: cigarettes Alcohol Intake: current Alcohol Intake frequency: 0-2 drinks per day Alcohol type: beer Drug use: Never Substance use type: does not use Details: pt states 2-4 drinks per day Do you feel safe at home: Yes Do you feel safe in your relationship?: Yes Exam Narrative Exam Narrative: GEN: awake, alert, oriented 3. Pleasant, well groomed, interactive. HEAD: Normocephalic, atraumatic ENT: Mucous membranes moist, oropharynx unremarkable, External ear exam unremarkable EYES: PERRL, EOMI NECK: Full ROM, no NIECY, no menigismus CHEST/RESP: Nontender, clear to auscultation bilateral, no wheeze/rhonchi/rales CARDIOVASCULAR: RRR, no murmur, rub ronald. 2+ Rad pulse bilateral EXT: Full ROM, no edema, no rash. Left anterior and medial humeral tenderness to palpation. Minimal discomfort with empty can test. Motor and sensory are normal throughout the upper extremities. Neuro: Grossly normal neurologic exam, conversant, interactive. Psych: Speech fluent, thoughts congruent, affect normal Course Vital Signs Vital signs: Vital Signs Temperature 36.8 C 04/21/19 10:10 Pulse 89 04/21/19 10:10 Respiratory Rate 04/21/19 10:10 Blood Pressure 170/97 H 04/21/19 10:10 Pulse Oximetry 98 04/21/19 10:10 Temperature 36.8 C 04/21/19 10:10 Temperature Source Skin 04/21/19 10:10 Pulse 89 04/21/19 10:10 Respiratory Rate 04/21/19 10:10 Blood Pressure 170/97 H 04/21/19 10:10 Blood Pressure Position Sitting 04/21/19 10:10 Pulse Oximetry 98 04/21/19 10:10 Oxygen Delivery Method Room Air 04/21/19 10:10 Oxygen Flow Rate 0 04/21/19 10:10 Pain Level 8 04/21/19 10:10 Procedures Other Description: Standard sterile precautions, prepped and draped in standard fashion, proceeded with injection of Kenalog overlying anterior bicipital tendon on the left
--- NOTE | 2019-04-21 10:45 | DI.RAD_ITS ---
EXAM: XR SHOULDER LT COMPLETE 2+V CLINICAL HISTORY: Pain and grinding TECHNIQUE: COMPARISON: No exams were available for comparison FINDINGS: Five views were obtained. No bony abnormality seen. Calcific densities seen in soft tissues probabl y associated with infraspinatus tendon adjacent to humeral attachment. Soft tissue calcification als o noted adjacent to the lateral aspect of the acromion. IMPRESSION: Findings suggesting calcific peritendinitis as described above.
--- NOTE | 2019-04-21 11:10 | DI.VRAD_ITS ---
PROCEDURE INFORMATION: Exam: XR Left Shoulder Exam date and time: 04/21/2019 10:43 AM Age: 53 years old Clinical indication: Patient HX: Left shoulder pain, no injury. grinding pain. TECHNIQUE: Imaging protocol: XR Left shoulder. Views: 2 or more views. COMPARISON: No relevant prior studies available. FINDINGS: Bones/joints: Avulsion fracture of unknown age is adjacent to the acromion Degenerative changes in the glenohumeral joint There is no evidence of acute fracture.There is no evidence of malalignment or dislocation. Soft tissues: Calcific densities along the superior lateral aspect of the humeral head consistent with calcific tendinitis IMPRESSION: There is no evidence of acute fracture.There is no evidence of malalignment or dislocation. Dictated and Authenticated by: Cisco Morrison MD. Ordering:RONNA Powell MD
[2019-04-21] MEDS: Lidocaine 5% Patch 1 PATCH TP (11:59)
[2019-04-21 12:00] VITALS: BP 146/73; PULSE 78; RESP 19; TEMP 36.9; O2SAT 98
== END 2019-04-21 12:01 | disposition home or self-care (01) ==
PROVIDERS: Emergency Provider Emergency Medicine; PCP Emergency Medicine
DX: M75.32 Calcific tendinitis of left shoulder (principal); R07.9 Chest pain, unspecified; I10 Essential (primary) hypertension
CPT/HCPCS: 20550; 93005; 99284; 73030; 93010; 99283

== ENCOUNTER 2019-09-18 10:26 | Outpatient (REF) | payer MEDICAID, SELFPAY ==
--- NOTE | 2019-09-18 09:20 | PAPFT_PTH ---
PATIENT: Natali Ibanez LOC: [facility] U#:[id number] AGE/SX: 54/F ROOM: RE09/18/[address]: Speedy Prado DO : 1965 BED: DIS: 09/18/2019 SPEC #: [id number] RECD: 09/19/19 12:46 STATUS: COLEMAN REQ #: [id number] LENORA: 09/18/19 09:[address]: Speedy Prado DEPT: [facility] Cytology RECD BY: Nasreen Murray Tissues: 1 - CX/ENDOCX FOR PAP SMEARS Procedures: PAP THIN PREP/UVM Screening HPV DNA PROBE Comments: [id number]
== END 2019-09-18 10:46 ==
LOC: LBN 10:26
PROVIDERS: PCP Emergency Medicine; Visit Provider Emergency Medicine
DX: Z12.4 Encounter for screening for malignant neoplasm of cervix (principal); Z11.51 Encounter for screening for human papillomavirus (HPV)
CPT/HCPCS: 88142; 87624

== ENCOUNTER 2019-09-20 04:16 | Outpatient (CLI) | payer MEDICAID, SELFPAY ==
[2019-09-20 12:49] LABS: Anion Gap 9.1 mmol/L (3-11); BUN 8 mg/dL (7-18); CO2 31.9 mmol/L (21.0-32.0); Calcium 9.2 mg/dL (8.5-10.1); Chloride 95 mmol/L (98-107); Glucose 97 mg/dL (74-106); Potassium 3.5 mmol/L (3.5-5.1); Sodium 136 mmol/L (136-145)
== END 2019-09-20 04:36 ==
PROVIDERS: PCP Emergency Medicine; Visit Provider Emergency Medicine
DX: I10 Essential (primary) hypertension (principal)
CPT/HCPCS: 36415; 80048

== ENCOUNTER 2020-09-29 12:14 | Outpatient (REF) | payer MEDICAID, SELFPAY ==
[2020-09-29 14:20] LABS: Abs Immature Grans 0.02 10^3/uL (0.0-0.06); Absolute Basophil Count 0.07 10^3/uL (0.0-0.2); Absolute Lymphocyte Count 2.58 10^3/uL (1.2-3.4); Absolute Monocyte Count 0.49 10^3/uL (0.1-0.8); Absolute Neutrophil Count 3.96 10^3/uL (1.2-6.7); Eosinophils % 1.4; HCT 44.2 % (36.0-46.0); HGB 15.1 g/dL (11.2-15.7); Immature Grans % 0.3; Lymphocytes % 35.7; MCH 31.1 pg (27.0-33.0); MCHC 34.2 % (32.0-36.0); MCV 90.9 fL (80-95); Monocytes % 6.8; Neutrophils % 54.8; Nucleated RBC 0 %; Platelet Count 441 10^3/uL (130-400); RBC 4.86 10^6/uL (3.93-5.22); RDW 13.6 % (11.7-14.6); RDW-SD 45.7 fL; WBC 7.22 10^3/uL (4.4-10.8)
[2020-09-29 14:42] LABS: ALT 30 U/L (14-59); AST 18 U/L (15-37); Albumin 4.4 g/dL (3.4-5.0); Alkaline Phosphatase 91 U/L (46-116); BUN 8 mg/dL (7-18); Bilirubin, Total 0.4 mg/dL (0.2-1.0); C-Reactive Protein 0.22 mg/dL (0.0-0.3); CREATININE 0.8 mg/dL (0.55-1.02); Calcium 9.6 mg/dL (8.5-10.1); Chloride 97 mmol/L (98-107); Glucose 97 mg/dL (74-106); Potassium 4.1 mmol/L (3.5-5.1); Sodium 137 mmol/L (136-145); TSH 1.93 uIU/mL (0.36-3.74)
== END 2020-09-29 12:15 | disposition home or self-care (01) ==
LOC: LBN 12:14
PROVIDERS: PCP Emergency Medicine; Visit Provider Emergency Medicine
DX: R63.4 Abnormal weight loss (principal); E03.9 Hypothyroidism, unspecified
CPT/HCPCS: 80053; 84443; 85025; 86140

== ENCOUNTER 2020-11-27 14:50 | Outpatient (CLI) | payer MEDICAID, SELFPAY ==
--- NOTE | 2020-11-27 13:39 | DI.RAD_ITS ---
Exam(s) XR FINGER LT MIDDLE EXAM: XR FINGER LT MIDDLE CLINICAL HISTORY: distal finger mass R22.32 TECHNIQUE: COMPARISON: CR RIGHT THUMB from 12/05/2014 FINDINGS: Three views were obtained. A BB marker is placed over the volar aspect of the DIP joint of the middl e finger. There are minimal degenerative changes of the DIP joints of the index, middle, and ring fi ngers. There is an amorphous soft tissue calcification projected on the volar aspect of the DIP join t the middle finger subjacent to the BB marker. This is indeterminate etiology and may represent dys trophic or inflammatory calcification. Infectious or neoplastic disease not excluded on the basis of this examination. IMPRESSION: RADIATION DOSE DELIVERED: Total DLP
--- NOTE | 2020-11-27 13:39 | DI.RAD_ITS ---
Exam(s) XR CHEST 2V PA LATERAL EXAM: XR CHEST 2V PA LATERAL CLINICAL HISTORY: WT LOSS R63.4 TECHNIQUE: 2D digital imaging was performed. COMPARISON: CR XR CHEST 2V PA LATERAL from 05/04/2018 FINDINGS: The heart is not enlarged. The lungs are clear and well expanded. No pleural effusion seen. Mediastin al contours appear intact. IMPRESSION: Normal chest. RADIATION DOSE DELIVERED: Total DLP
== END 2020-11-27 15:10 ==
PROVIDERS: PCP Emergency Medicine; Visit Provider Emergency Medicine
DX: R22.32 Localized swelling, mass and lump, left upper limb (principal); R63.4 Abnormal weight loss; M15.1 Heberden's nodes (with arthropathy)
CPT/HCPCS: 71046; 73140

== ENCOUNTER 2021-04-09 03:58 | Outpatient (CLI) | payer MEDICAID, SELFPAY ==
[2021-04-09 08:51] LABS: BUN 9 mg/dL (7-18); CREATININE 0.8 mg/dL (0.55-1.02); Calcium 9.5 mg/dL (8.5-10.1); Chloride 94 mmol/L (98-107); Glucose 118 mg/dL (74-106); Potassium 3.5 mmol/L (3.5-5.1); Sodium 134 mmol/L (136-145)
== END 2021-04-09 03:59 | disposition home or self-care (01) ==
LOC: LBO 03:58
PROVIDERS: PCP Family Medicine; Visit Provider Emergency Medicine
DX: I10 Essential (primary) hypertension (principal)
CPT/HCPCS: 36415; 80048

== ENCOUNTER 2021-05-04 00:17 | Outpatient (CLI) | payer MEDICAID, SELFPAY ==
--- NOTE | 2021-05-04 07:15 | DI.CT_ITS ---
Exam(s) CT ABDOMEN PELVIS W EXAM: CT ABDOMEN PELVIS W CLINICAL HISTORY: ? recurrent umbilical hernia vs new hernia adjacent,abd pain,r10.9 TECHNIQUE: Imaging Protocol: Axial computed tomography images with coronal and sagittal reformatted images were created and reviewed CONTRAST MATERIAL: Intravenous: Omnipaque 350 Contrast volume:100 mL Oral: Yes COMPARISON: CT ABD PELVIS WITH CONTRAST from 04/17/[address] CHEST PE CTA from 05/04/2018 FINDINGS: ABDOMEN: Lung Bases: There is a stable 3 mm nodule in the right lower lobe. Liver: Normal density. No measurable mass. There is a tiny hypodensity in the right lobe of the liver . It is too small for further characterization but likely reflects a small cyst. Portal, Superior Mesenteric, and Splenic Veins: Unremarkable. Gallbladder and Biliary Tract: No radiodense calculus or dilation. Pancreas: Normal density, no abnormal calcifications or inflammatory process. Spleen: Normal. Adrenals: No masses seen. Kidneys: Normal size, contour and axis. No radiodense stones or obstructive uropathy. No masses seen. Abdominal Aorta: Abdominal portion non-dilated. Atherosclerosis. Bowel: No obstruction or bowel wall thickening. Appendix is unremarkable. There is diverticulosis of the colon, but no evidence of acute diverticulitis. Peritoneal Cavity: No ascites, collection or mesenteric inflammatory response. No free air. Lymph Nodes: Within normal limits. Bones: Within normal limits for the patient's age. Soft Tissues: There is no evidence of a recurrent umbilical hernia or other anterior abdominal wall h erniation or mass. PELVIS: Bladder: Symmetric distention, no gross wall thickening. Reproductive Organs: The ovaries appears similar compared to prior examination. Lymph Nodes: Within normal limits. Bones: Within normal limits for the patient's age. IMPRESSION: 1. No acute abdominal or pelvic process. 2. No evidence of an anterior abdominal wall hernia/umbilical hernia or mass. RADIATION DOSE DELIVERED: 461.14mGy.cm Total DLP DATA REPOSITORY: All CT scans at this facility are submitted to the National Radiology Data Registry (NRDR) Dose Index Registry (DIR) with the [employer] (ACR). RADIATION OPTIMIZATION: All CT scans at this facility use at least one of these dose optimization te chniques: automated exposure control; mA and/or kV adjustment per patient size (includes targeted exa ms where dose is matched to clinical indication); or iterative reconstruction.
[2021-05-04] MEDS: Breeza Beverage 473 ML BTL PO (08:43)
[2021-05-04] MEDS: Omnipaque 350 MG/ML 50 ML BTL IJ (08:43)
[2021-05-04] MEDS: Omnipaque 350 MG/ML 100 ML BTL IJ (10:07)
== END 2021-05-04 00:37 ==
PROVIDERS: PCP Family Medicine; Visit Provider Surgery
DX: R10.33 Periumbilical pain (principal); K76.89 Other specified diseases of liver; I70.0 Atherosclerosis of aorta
CPT/HCPCS: 74177; J3490; Q9967

== ENCOUNTER 2021-05-14 02:22 | Outpatient (CLI) | payer MEDICAID, SELFPAY ==
[2021-05-14 13:23] LABS: Abs Immature Grans 0.02 10^3/uL (0.0-0.06); Absolute Basophil Count 0.09 10^3/uL (0.0-0.2); Absolute Eosinophil Count 0.13 10^3/uL (0.0-0.7); Absolute Lymphocyte Count 3.49 10^3/uL (1.2-3.4); Absolute Neutrophil Count 5.48 10^3/uL (1.2-6.7); Basophils % 0.9; Eosinophils % 1.3; HCT 41.2 % (36.0-46.0); HGB 14.2 g/dL (11.2-15.7); Immature Grans % 0.2; Lymphocytes % 35.6; MCH 31.4 pg (27.0-33.0); MCHC 34.5 % (32.0-36.0); MCV 91.2 fL (80-95); MPV 8.2 fL (8.0-11.0); Monocytes % 6.1; Neutrophils % 55.9; Nucleated RBC 0 %; Platelet Count 405 10^3/uL (130-400); RBC 4.52 10^6/uL (3.93-5.22); RDW 13.1 % (11.7-14.6); RDW-SD 43.9 fL; WBC 9.81 10^3/uL (4.4-10.8)
[2021-05-14 13:54] LABS: Prothrombin Time 10.1 sec (9.3-11.0)
[2021-05-14 14:28] LABS: ALT 26 U/L (14-59); AST 18 U/L (15-37); Alkaline Phosphatase 82 U/L (46-116); Anion Gap 7.4 mmol/L (3-11); BUN 7 mg/dL (7-18); Bilirubin, Direct 0.1 mg/dL (0.0-0.2); Bilirubin, Total 0.3 mg/dL (0.2-1.0); CO2 31.6 mmol/L (21.0-32.0); CREATININE 0.7 mg/dL (0.55-1.02); Calcium 9.5 mg/dL (8.5-10.1); Chloride 98 mmol/L (98-107); GGT 40 U/L (5-55); Glucose 109 mg/dL (74-106); Potassium 3.9 mmol/L (3.5-5.1); Sodium 137 mmol/L (136-145); Total Protein 7.3 g/dL (6.4-8.2)
== END 2021-05-14 02:23 | disposition home or self-care (01) ==
LOC: LBO 02:22
PROVIDERS: PCP Family Medicine; Visit Provider Emergency Medicine
DX: I10 Essential (primary) hypertension (principal); E03.9 Hypothyroidism, unspecified; F10.20 Alcohol dependence, uncomplicated; R10.9 Unspecified abdominal pain; R63.4 Abnormal weight loss; K76.89 Other specified diseases of liver
CPT/HCPCS: 36415; 80053; 80076; 82977; 85025; 85610

== ENCOUNTER → 2021-07-15 00:56 | Outpatient (CLI) | payer MEDICAID, SELFPAY ==
--- NOTE | 2021-07-15 10:25 | DI.MAMMO_ITS ---
Exam(s) MAMMO SCREENING EXAM: MAMMO SCREENING CLINICAL HISTORY: screening,z12.39 TECHNIQUE: Mammograms were interpreted according to the usual protocol including computer analysis w [facility] CAD system, tomosynthesis and C-view imaging. COMPARISON: FINDINGS: The breasts are heterogeneously dense. No dominant mass or clumped microcalcification is identified in either breast. The current examination is compared with previous examinations including November 20 and there has been no gross interval change in appearance in comparison with the prior studies. IMPRESSION: No specific evidence of malignancy at this time. Routine screening examinations are suggested at ye nicolas intervals in this age group according to the ACS ACR guidelines. BI-RADS Category 1 - Negative Breast Density - Category C - Heterogeneously dense
== END ==
PROVIDERS: PCP Family Medicine; Visit Provider Family Medicine
DX: Z12.31 Encounter for screening mammogram for malignant neoplasm of breast (principal)
CPT/HCPCS: 77063; 77067

== ENCOUNTER 2022-01-26 03:29 | Outpatient (CLI) | payer MEDICAID, SELFPAY ==
[2022-01-26 08:21] LABS: Abs Immature Grans 0.02 10^3/uL (0.0-0.06); Absolute Basophil Count 0.07 10^3/uL (0.0-0.2); Absolute Eosinophil Count 0.12 10^3/uL (0.0-0.7); Absolute Lymphocyte Count 2.22 10^3/uL (1.2-3.4); Absolute Monocyte Count 0.45 10^3/uL (0.1-0.8); Absolute Neutrophil Count 3.18 10^3/uL (1.2-6.7); Basophils % 1.2; HCT 41.9 % (36.0-46.0); HGB 14.9 g/dL (11.2-15.7); Immature Grans % 0.3; Lymphocytes % 36.6; MCH 32.3 pg (27.0-33.0); MCHC 35.6 % (32.0-36.0); MCV 91 fL (80-95); MPV 8.6 fL (8.0-11.0); Monocytes % 7.4; Neutrophils % 52.5; Platelet Count 398 10^3/uL (130-400); RBC 4.62 10^6/uL (3.93-5.22); RDW 13.2 % (11.7-14.6); WBC 6.06 10^3/uL (4.4-10.8)
[2022-01-26 08:56] LABS: ALT 22 U/L (14-59); AST 21 U/L (15-37); Albumin 4.1 g/dL (3.4-5.0); Alkaline Phosphatase 86 U/L (46-116); Anion Gap 5.7 mmol/L (3-11); BUN 10 mg/dL (7-18); Bilirubin, Total 0.4 mg/dL (0.2-1.0); CO2 32.3 mmol/L (21.0-32.0); CREATININE 0.7 mg/dL (0.55-1.02); Calcium 9.5 mg/dL (8.5-10.1); Chloride 97 mmol/L (98-107); Estimated GFR 102.71 (mL/min/1.73m2); Glucose 96 mg/dL (74-106); Potassium 3.6 mmol/L (3.5-5.1); Sodium 135 mmol/L (136-145); TSH (W/Ref FT4) 1.61 uIU/mL (0.36-3.74); Total Protein 7.7 g/dL (6.4-8.2)
[2022-01-26 09:22] LABS: Hemoglobin A1C 5.3 % (<5.7)
== END 2022-01-26 03:30 | disposition home or self-care (01) ==
LOC: LBO 03:29
PROVIDERS: PCP Nurse Practitioner Family; Visit Provider Nurse Practitioner Family
DX: R63.4 Abnormal weight loss (principal); I10 Essential (primary) hypertension; E03.9 Hypothyroidism, unspecified; R79.89 Other specified abnormal findings of blood chemistry
CPT/HCPCS: 36415; 80053; 83036; 84443; 85025

== ENCOUNTER 2022-02-02 22:24 | Emergency (ER) | payer MEDICAID, SELFPAY ==
[2022-02-02] VITALS (13 sets, daily range): BP systolic 103–117; BP diastolic 58–70; PULSE 72–92; RESP 14–28; TEMP 35.4
--- NOTE | 2022-02-02 01:45 | DI.RAD_ITS ---
Exam(s) XR PORTABLE CHEST AP EXAM: XR PORTABLE CHEST AP CLINICAL HISTORY: syncope. TECHNIQUE: 2D digital imaging was performed. COMPARISON: CR XR CHEST 2V PA LATERAL from 11/27/2020 FINDINGS: LUNGS: Clear. No pleural abnormality seen. HEART: Normal. MEDIASTINUM: Normal. OTHER FINDINGS: None. IMPRESSION: No acute pulmonary findings. DATA REPOSITORY: RADIATION DOSE DELIVERED: Total DLP
--- NOTE | 2022-02-02 22:15 | RT.EKG_ITS ---
APPROVED REPORT Exam: Resting ECG Reason for Exam: dizzy Patient Location: E HR:80 bpm ECG Measurements Heart Rate 80 AXIS [place] 138 P 86 QRSd 92 QRS 40 QT 395 T 18 QTc 454 Conclusion Sinus rhythm...normal P axis, V-rate 60- 99
--- NOTE | 2022-02-02 23:23 | ED.GENADUL_ITS ---
Discharge Plan Disposition Patient Disposition: HOME Condition: Improving Discharge Details Chief Complaint: Dizzy/Sync Clinical Impression: Syncope Primary Care Provider: Ana Duran ED Provider: Jefferson Oswald Home Meds and New Rx's Prescriptions: No Action amlodipine 5 mg tablet 5 mg PO DAILY Qty: 90 3RF metoclopramide HCl 10 mg tablet 10 mg PO Q6H PRN ibuprofen 800 mg tablet 800 mg PO PRN Qty: 90 1RF hydrochlorothiazide 25 mg tablet 25 mg PO DAILY Qty: 90 3RF acetaminophen [Tylenol] 325 mg tablet 650 mg PO Q6H PRN (Reason: pain) Qty: 30 0RF Discharge Instructions Instructions: Syncope (ED) Medical Decision Making 56-year-old female history of hypertension, presents after 2 episodes of syncope going from a seated to a standing position at home this evening, preceded by a prodrome of lightheadedness. No chest pain or shortness of breath. No external signs of trauma. Cranial nerves II through XII intact, 5 strength upper and lower extremities, no ataxia, alert oriented interactive hemodynamically stable. Consider orthostatic hypotension versus vasovagal episode versus less consider intoxication however clinically sober at this time lower suspicion for infectious process or stroke or ACS however given age and risk factors will obtain labs, also obtain chest x-ray EKG. Fluids close reassessment of symptoms. Possible component of dehydration given slightly dry oral mucosa and poor skin turgor. Likely home with close follow-up 01: 06 patient resting comfortably no acute distress. Asymptomatic. Labs and imaging unremarkable. Consider orthostatic hypotension versus vasovagal episode in the setting of mild dehydration. Home care instructions and return precautions given. here to take her home. HPI General Date/Time Provider Initiated Documentation: 02/02/22 22:25 . HPI Narrative: 56-year-old female history of hypertension, presents after 2 syncopal episodes this evening at home from standing position, had had some drinks earlier in the evening went to bed got up to get a snack in the kitchen, felt lightheaded, syncopized, denies biting tongue or loss of bowel or bladder control. Had a second event when she got up to stand and walk to the couch. Denies chest pain shortness of breath nausea or vomiting. Related Data Home Medications Medication Instructions Recorded Confirmed acetaminophen 325 mg tablet 650 mg PO Q6H PRN pain #30 tabs 01/09/19 02/02/22 (Tylenol) ibuprofen 800 mg tablet 800 mg PO PRN #90 tabs 11/26/20 02/02/22 amlodipine 5 mg tablet 5 mg PO DAILY #90 tabs 04/06/21 02/02/22 hydrochlorothiazide 25 mg tablet 25 mg PO DAILY #90 tabs 01/11/22 02/02/22 metoclopramide HCl 10 mg tablet 10 mg PO Q6H PRN 01/19/22 02/02/22 Previous Rx's Medication Instructions Recorded acetaminophen 325 mg tablet 650 mg PO Q6H PRN pain #30 tabs 01/09/19 (Tylenol) ibuprofen 800 mg tablet 800 mg PO PRN #90 tabs 11/26/20 amlodipine 5 mg tablet 5 mg PO DAILY #90 tabs 04/06/21 hydrochlorothiazide 25 mg tablet 25 mg PO DAILY #90 tabs 01/11/22 Allergies Allergy/AdvReac Type Severity Reaction Status Date / Time codeine AdvReac Severe GI UPSET Verified 02/02/22 22:37 oxycodone AdvReac Severe GI UPSET Verified 02/02/22 22:37 amlodipine AdvReac Mild edema Verified 02/02/22 22:38 General Stated Complaint: Dizzy/Sync SONIA: 3 Review of Systems Narrative: Review of Systems Constitutional: negative Eyes: negative ENT: negative Cardiovascular: Syncope Respiratory: negative Gastrointestinal: negative : negative Musculoskeletal: negative Skin: negative Neurologic: negative Psych: negative PFSH All Active Problems (Updated 02/03/22 @ 01:07 by Jefferson Oswald MD) Syncope (Chronic) Essential hypertension (Chronic) Cigarette smoker (Chronic) Tubular adenoma of colon (Chronic ~2016) Unintentional weight loss (Chronic) Alcohol abuse (Chronic) 06/2021-4 drinks per day Colon, diverticulosis (Chronic) Migraine headache with aura (Chronic) Medical History Dysfunctional uterine bleeding S/P hyst./ovaries remain Gastroesophageal reflux disease Pancreatitis (~2016) Surgical History H/O thumb surgery on right side only History of section History of umbilical hernia repair 2018 2013 S/P colonoscopy S/P knee surgery S/P recurrent ventral herniorrhaphy (01/09/19) 01/19, ventrral/umbilical hernia required revision, chronic sensitivity around umbilicus Status post laparoscopic hysterectomy Cervix and ovaries remain Status post LEEP (loop electrosurgical excision procedure) of cervix Family History Mother Hypertension Father , 66 Colon cancer Liver cancer Brother No problems noted. Brother Rectal cancer Non-small cell lung cancer metastatic to liver Sister No problems noted. Son No problems noted. Daughter No problems noted. Daughter No problems noted. Maternal Grandfather No problems noted. Maternal Grandmother Brain cancer Paternal Grandfather Cancer Paternal Grandmother Cancer Social History (Updated 01/19/22 @ 15:43 by Ana Duran NP) Smoking/Tobacco Use Status: Current every day Tobacco Type: cigarettes Smoking packs per day: 0.5 Smoking cigarettes per day: 10.0 Years smoked: 40 Smoking pack-years: 20.00 Second Hand Exposure: Yes Smoking risk assessment performed?: Yes Alcohol Intake: current Alcohol Intake frequency: a few times a week Alcohol type: beer Drug use: Never Substance use type: does not use Details: pt states 2-4 drinks per day Current gender identity: female Do you feel safe at home: Yes Do you feel safe in your relationship?: Yes Exam Narrative Exam Narrative: Physical Examination General: alert, awake, cooperative, resting comfortably, no acute distress HEENT: normocephalic, atraumatic; PERRL, EOM intact, conjunctiva normal; no nasal discharge; slightly dry oral mucosa, no tongue lesions Neck: supple, trachea midline; full ROM Chest: normal to inspection Respiratory: normal respiratory effort, speaking in full sentences, clear to auscultation, no wheezing, rales or rhonchi Cardiac: regular rate, regular rhythm, S1S2 intact, no murmurs rubs or gallops GI: abdomen soft, non-tender, non-distended; no palpable mass or hepatosplenomegaly Skin: Slightly dry skin, no lesions, rashes or trauma appreciated Neuro: AAOx3, normal speech, moving all extremities; cranial nerves II through XII intact, 5 out of 5 strength upper and lower extremities, no truncal ataxia Extremities: No peripheral edema, no deformity Psych: Appropriate mood and affect Course Vital Signs Vital signs: Vital Signs Temperature 35.4 C L 02/02/22 22:25 Pulse 92 H 02/02/22 22:25 Respiratory Rate 20 02/02/22 22:25 Blood Pressure 113/70 02/02/22 22:25 Temperature 35.4 C L 02/02/22 22:25 Temperature Source Tympanic 02/02/22 22:25 Pulse 92 H 02/02/22 22:25 Respiratory Rate 20 02/02/22 22:25 Respiratory Effort 02/02/22 22:49 Respiratory Depth Normal 02/02/22 22:47 Respiratory Pattern Normal 02/02/22 22:47 Blood Pressure 113/70 02/02/22 22:25 Blood Pressure Position Supine 02/02/22 22:25 Oxygen Delivery Method Room Air 02/02/22 22:25 Oxygen Flow Rate 0 02/02/22 22:25 Pain Level 10 02/02/22 22:25 Comment 02/02/22 22:25 PAWSS Have you Ever Experienced Previous Episodes of Alcohol Withdrawal?: No Have you ever Experienced Withdrawal Seizures?: No Have you ever Experienced Delirium Tremens(DT)s?: No Have you ever undergone Alcohol Rehabilitation Treatment (i.e, inpt ot outpatient treatment programs)?: No Have you ever Experienced Blackouts?: No Have you ever Combined Alcohol with other Downers within the last 90 days?: No Have you ever Combined Alcohol with any other Substance of Abuse during the last 90 days?: No Positive Blood Alcohol level on Presentation? [PCS.BAL]: No Evidence of Increased Autonomic Activity (i.e. HR>120, tremor, sweating, agitation, nausea)?: No Result: 0
[2022-02-02] MEDS: Normal Saline 1,000 ML 1000 ML IV (23:26)
[2022-02-02 23:34] LABS: Abs Immature Grans 0.03 10^3/uL (0.0-0.06); Absolute Basophil Count 0.08 10^3/uL (0.0-0.2); Absolute Eosinophil Count 0.27 10^3/uL (0.0-0.7); Absolute Lymphocyte Count 4.51 10^3/uL (1.2-3.4); Absolute Monocyte Count 0.52 10^3/uL (0.1-0.8); Absolute Neutrophil Count 3.95 10^3/uL (1.2-6.7); Basophils % 0.9; Eosinophils % 2.9; HCT 40.9 % (36.0-46.0); HGB 14.3 g/dL (11.2-15.7); Immature Grans % 0.3; Lymphocytes % 48.2; MCH 32.1 pg (27.0-33.0); MCV 92 fL (80-95); MPV 8.8 fL (8.0-11.0); Monocytes % 5.6; Neutrophils % 42.1; Platelet Count 392 10^3/uL (130-400); RBC 4.46 10^6/uL (3.93-5.22); RDW 12.9 % (11.7-14.6); RDW-SD 43.6 fL; WBC 9.36 10^3/uL (4.4-10.8)
[2022-02-02 23:52] LABS: ALT 22 U/L (14-59); AST 18 U/L (15-37); Albumin 3.8 g/dL (3.4-5.0); Alkaline Phosphatase 77 U/L (46-116); Anion Gap 7.3 mmol/L (3-11); BUN 8 mg/dL (7-18); Bilirubin, Total 0.3 mg/dL (0.2-1.0); CO2 30.7 mmol/L (21.0-32.0); CREATININE 0.7 mg/dL (0.55-1.02); Calcium 8.7 mg/dL (8.5-10.1); Chloride 97 mmol/L (98-107); ETHANOL BLOOD 114.7 mg/dL (<10); Estimated GFR 102.71 (mL/min/1.73m2); Glucose 106 mg/dL (74-106); Sodium 135 mmol/L (136-145); Total Protein 7.2 g/dL (6.4-8.2); Troponin I < 50 ng/L (<or=60)
[2022-02-03] VITALS (7 sets, daily range): BP systolic 106–123; BP diastolic 63–66; PULSE 78–88; RESP 14–23; TEMP 37; O2SAT 95
--- NOTE | 2022-02-03 | DI.CT_ITS ---
Exam(s) CT HEAD WO EXAM: CT HEAD WO CLINICAL HISTORY: fall, syncope. TECHNIQUE: Imaging Protocol: Axial computed tomography images with coronal and sagittal reformatted images were created and reviewed COMPARISON: No exams were available for comparison FINDINGS: The ventricular system is normal in appearance. No evidence of acute intracranial hemorrhage, mass effect, or midline shift. The orbital structures are unremarkable. The temporal bone structures appear intact. Calvarium: Normal. Visualized Paranasal sinuses/Mastoids: Clear. IMPRESSION: Normal cranial CT. RADIATION DOSE DELIVERED: 641.68mGy.cm Total DLP 641.68mGy.cm Total DLP !Error CTDIvol DATA REPOSITORY: All CT scans at this facility are submitted to the National Radiology Data Registry (NRDR) Dose Index Registry (DIR) with the [employer] (A[employer]). RADIATION OPTIMIZATION: All CT scans at this facility use at least one of these dose optimization te chniques: automated exposure control; mA and/or kV adjustment per patient size (includes targeted exa ms where dose is matched to clinical indication); or iterative reconstruction.
--- NOTE | 2022-02-03 00:51 | DI.VRAD_ITS ---
PROCEDURE INFORMATION: Exam: CT Head Without Contrast Exam date and time: 02/03/2022 12:26 AM Age: 56 years old Clinical indication: Other: Fall, syncope TECHNIQUE: Imaging protocol: Computed tomography of the head without contrast. Radiation optimization: All CT scans at this facility use at least one of these dose optimization techniques: automated exposure control; mA and/or kV adjustment per patient size (includes targeted exams where dose is matched to clinical indication); or iterative reconstruction. COMPARISON: No relevant prior studies available. FINDINGS: Brain: There is no acute intracranial hemorrhage, mass effect or midline shift. There is no large acute territorial cerebral infarct. Cerebral ventricles: No ventriculomegaly. Paranasal sinuses: The paranasal sinuses are clear. No air-fluid levels. Mastoid air cells: The mastoid air cells are unremarkable. Bones/joints: No acute fracture. Soft tissues: No significant subcutaneous soft tissue abnormality. IMPRESSION: No acute intracranial hemorrhage, mass effect or midline shift. Dictated and Authenticated by: Kenia Woodward MD. Ordering:MIGUEL ÁNGEL Paulino MD
--- NOTE | 2022-02-03 00:51 | DI.VRAD_ITS ---
PROCEDURE INFORMATION: Exam: XR Chest Exam date and time: 02/03/2022 12:17 AM Age: 56 years old Clinical indication: Other: Syncope TECHNIQUE: Imaging protocol: Radiologic exam of the chest. Views: 1 view. COMPARISON: CR XR CHEST 2V PA LATERAL 11/27/2020 1:26 PM FINDINGS: Lungs: Unremarkable. No consolidation. Pleural spaces: Unremarkable. No pleural effusion. No pneumothorax. Heart/Mediastinum: Unremarkable. No cardiomegaly. Bones/joints: Unremarkable. IMPRESSION: No acute findings. Dictated and Authenticated by: Kenia Woodward MD. Ordering:MIGUEL ÁNGEL Paulino MD
[2022-02-03 01:01] LABS: Bilirubin Negative (Negative); Blood Negative (Negative); Clarity Clear (Clear); Glucose Negative (Negative); Ketones Negative (Negative); Leukocyte Esterase Negative (Negative); Nitrite Negative (Negative); Specific Gravity 1.015 (1.005-1.025); Urobilinogen 0.2 EU/dL (Up TO 0.2)
[2022-02-03 01:18] LABS: *AMPHETAMINES SCREEN URINE Negative (Negative); *BARBITURATES SCREEN URINE Negative (Negative); *BENZODIAZEPINES SCREEN URINE Negative (Negative); Cannabinoids THC Negative (Negative); Cocaine Screen,Urine Negative (Negative); METHADONE URINE SCREEN Negative (Negative); OPIATES URINE SCREEN Negative (Negative); Tricyclic Antidepressants Negative (Negative)
== END 2022-02-03 01:24 | disposition home or self-care (01) ==
PROVIDERS: Emergency Medicine; Emergency Provider Emergency Medicine; PCP Nurse Practitioner Family
DX: R55 Syncope and collapse (principal); I10 Essential (primary) hypertension
CPT/HCPCS: 36415; 80053; 80307; 93005; 99284; 70450; 71045; 80320; 81003; 83735; 84484; 85025; 93010

== ENCOUNTER 2022-02-14 08:25 | Day surgery (SDC) | payer MEDICAID, SELFPAY ==
--- NOTE | 2022-02-14 06:19 | W.COLOREPORT ---
Date of service: 02/14/22 Time of Service: :49 Colonoscopy Report Date of procedure: 02/14/22 Pre-op diagnosis general: screening and hx of polyps Post-op diagnosis procedure note: same (polyp and diverticulosis) Procedure: Colonoscoopy with polypectomy Surgeon: Yvonne Wood Anesthesia Type: General:No Airway Estimated blood loss (mL): 2 Pathology: other (sigmoid polyp) Complications: None Disposition: same day Indications: The patient? is a pleasant ? 56-year-old female who is here to discuss another screening colonoscopy. ? She had a Tubular adenoma of the sigmoid colon in 2017.? She denies any changes in bowel habits, melena, hematochezia, unintentional weight loss or family history of colon cancer.? The procedure and risks were discussed.? The prep was reviewed in detail.? Risks, benefits and complications have been reviewed. Complications include but are not limited to bleeding, pain, perforation, missed small lesion/polyp, sore throat, aspiration and adverse reaction to the medications. Questions were entertained and answered to their satisfaction and they wished to proceed. No guarantees were given or implied. Prep: Miralax/Dulcolax Procedure Start Time: :49 Procedure End Time: 10:13 Retraction Time: 17 minutes Findings: one polyp, diverticulosis Procedure Description: After informed consent was obtained the patient was taken to the procedure room and placed in a left decubitous position. Monitors were applied and a time out was done. The patients name, date of , procedure, allergies to medications and metal in their body was reviewed. The patient was then sedated. Once sedated and comfortable a rectal exam was done. External exam was normal. Internal exam revealed a normal sphincter tone and no palpable masses. . The scope was then introduced and retro-flexed. No internal hemorrhoids, polyps or masses were identified on retro-flexion. The scope was then advanced to the cecum without difficulty. The ileocecal vlave and appendiceal orifice were identified. The prep was good. The scope was then slowly retracted over 17 minutes back into the rectum. Polyps were removed with cold forceps in the sigmoid colon. There was moderate sigmoid diverticulosis noted. The scope was removed and the patient was woken up and taken back to Same day surgery in stable condition. The patient tolerated the procedure well and there were no immediate complications.
--- NOTE | 2022-02-14 06:20 | W.PM.DSUDISC ---
Date of service: 02/14/22 Time of Service: 10:18 Discharge Plan Disposition Patient Disposition: HOME Condition: Good Discharge Details Reason For Visit: colonoscopy Attending Provider: Yvonne Wood Primary Care Provider: Ana Duran Home Meds and New Rx's Prescriptions: Continued amlodipine 5 mg tablet 5 mg PO DAILY Qty: 90 3RF Hold Instructions: Syncope Label Comments: 02/03 PCP placed on HOLD d/t syncope metoclopramide HCl 10 mg tablet 10 mg PO Q6H PRN ibuprofen 800 mg tablet 800 mg PO PRN Qty: 90 1RF potassium chloride 20 mEq tablet extended release 20 meq PO DAILY Qty: 90 0RF hydrochlorothiazide 25 mg tablet 25 mg PO DAILY Qty: 90 3RF acetaminophen [Tylenol] 325 mg tablet 650 mg PO Q6H PRN (Reason: pain) Qty: 30 0RF Discontinued polyethylene glycol 3350 17 gram/dose powder 238 g PO ONCE Qty: 238 0RF Rx Instructions: take per colonoscopy instructions bisacodyl [Dulcolax (bisacodyl)] 5 mg tablet,delayed release (DR/EC) 5 mg PO ONCE Qty: 4 0RF Rx Instructions: take per colonoscopy instructions Discharge Instructions Instructions: Colorectal Polyps (DC), Diverticulosis (DC) Additional Instructions: Findings: one small polyp and diverticulosis Follow up: 5 years Please call if you develop: fevers >101.5 Nausea or Vomiting Abdominal pain that is not transient Rectal bleeding that is more then a tbsp A hard abdomen and inability to pass gas DAY SURGERY UNIT POST ENDOSCOPY INSTRUCTIONS Instructions for everyone who is given Anesthesia: For your safety, please do the following for the next 24 Hours: a. Do not drive or operate dangerous equipment b. Do not drink alcohol beverages or use any recreational drugs for the first 24 hours or while taking pain medications. The medications in your body may have a reaction that can be dangerous. c. Do not make any important decisions or sign any important papers 1. Generally there are no restrictions on your activity after a day or so has gone by, but you may feel a bit fatigued for a few days. 2. After you arrive home you may have a light meal and return to a normal diet as you can tolerate it without feeling sick to your stomach. 3. After surgery, you may feel pain or discomfort. This should be only transient, but if it persists please contact your doctor. 4. If there are any questions regarding the findings of your procedure, please feel free to contact your doctor. 6. If you are unable to contact your doctor with a problem, contact the hospital at [phone]. 7. Continue all your regular medications unless directed otherwise. I understand the above instructions and have no questions. Signature of Patient or Responsible Adult Escort Date/Time Name of Responsible Adult Escort Signature of Nurse Date/Time Activity:: Activity as Tolerated Diet:: high fiber Discharge Orders Discharge Orders: Discharge Order (Routine); Ordered 02/14/22 Ordered By: Yvonne Wood
[2022-02-14 08:38] VITALS: BP 152/91; PULSE 103; RESP 14; TEMP 36.1; O2SAT 100
[2022-02-14] MEDS: Lactated Ringers 1,000 ML 80 ML IV (08:55)
--- NOTE | 2022-02-14 09:11 | W.ANESPRE ---
General Info Date of Service Date Performed: 02/14/22 Height: 5 ft 2.5 in Weight: 42.456 kg Body Mass Index (BMI): 16.8 Surgical Procedure: Operation Date: 02/14/22 10:05 Proposed Procedure Side Surgeon p Colonoscopy Yvonne Wood MD Meds Allergies and Home Medications Allergies Allergy/AdvReac Type Severity Reaction Status Date / Time codeine AdvReac Severe GI UPSET Verified 02/14/22 08:38 oxycodone AdvReac Severe GI UPSET Verified 02/14/22 08:38 amlodipine AdvReac Mild edema Verified 02/14/22 08:38 Home Medication Medication Instructions Recorded acetaminophen 325 mg tablet 650 mg PO Q6H PRN pain #30 tabs 01/09/19 (Tylenol) ibuprofen 800 mg tablet 800 mg PO PRN #90 tabs 11/26/20 amlodipine 5 mg tablet 5 mg PO DAILY #90 tabs 04/06/21 hydrochlorothiazide 25 mg tablet 25 mg PO DAILY #90 tabs 01/11/22 metoclopramide HCl 10 mg tablet 10 mg PO Q6H PRN 01/19/22 potassium chloride 20 mEq 20 meq PO DAILY #90 tabs 02/03/22 tablet,extended release bisacodyl 5 mg tablet,delayed 5 mg PO ONCE colonscopy bowel prep 02/04/22 release (Dulcolax (bisacodyl)) #4 tabs polyethylene glycol 3350 17 238 g PO ONCE colonoscopy prep 02/04/22 gram/dose oral powder #238 grams Current Visit Medications: Current Medications Generic Name Dose Route Start Last Admin Trade Name Freq PRN Reason Stop Dose Admin Hyoscyamine Sulfate 0.125 mg 02/14/22 06:20 Hyoscyamine 0.125 Mg Sl/Oral/Chew SL DIRECTED PRN Ringer's Solution 1,000 mls @ 80 mls/hr 02/14/22 06:00 02/14/22 08:55 IV 03/13/22 23:59 80 mls/hr INFUSION MELISSA Administration IV Miscellaneous Supplies 1 each 02/14/22 06:00 Iv Access IV 03/13/22 23:59 DIRECTED MELISSA Ondansetron HCl 4 mg 02/14/22 06:20 Ondansetron 4 Mg/2 Ml Vial IVP Q4H PRN PRN Nausea / Vomiting Sodium Chloride 0 ml 02/14/22 06:00 Normal Saline Flush 10 Ml Syr IV 03/13/22 23:59 PRN PRN Sodium Chloride 0 ml 02/14/22 06:00 Normal Saline 10 Ml Vial IJ 03/13/22 23:59 DIRECTED PRN Sterile Water 0 ml 02/14/22 06:00 Water,Injection,Sterile 10 Ml Vial IJ 03/13/22 23:59 DIRECTED PRN PFSH Active Problems Active Problems: Problem Status Onset Code Essential hypertension I10 Alcohol abuse F10.10 Unintentional weight loss R63.4 Tubular adenoma of colon ~2017 D12.6 Cigarette smoker F17.210 Migraine headache with aura G43.109 Colon, diverticulosis K57.30 Syncope R55 Medical History Medical History Dysfunctional uterine bleeding S/P hyst./ovaries remain Gastroesophageal reflux disease Pancreatitis (~2016) Medical History Comments:: pt states 2-4 drinks per day Surgical History Surgical History H/O thumb surgery on right side only History of section History of hand surgery left hand, tumor removed from finger History of hysterectomy History of umbilical hernia repair 2018 2013 Hx of section S/P colonoscopy S/P knee surgery S/P recurrent ventral herniorrhaphy (01/09/19) 01/19, ventrral/umbilical hernia required revision, chronic sensitivity around umbilicus Status post laparoscopic hysterectomy Cervix and ovaries remain Status post LEEP (loop electrosurgical excision procedure) of cervix Tobacco Smoking/Tobacco Use Status: Current every day Tobacco Type: cigarettes Smoking packs per day: 0.5 Smoking cigarettes per day: 10.0 Years smoked: 40 Smoking pack-years: 20.00 Passive smoking exposure: Yes Second hand exposure: Yes Alcohol Alcohol Intake: current Alcohol intake frequency: a few times a week Alcohol type: beer Substance Use Substance use: Never Substance use type: does not use Details: pt states 2-4 drinks per day Vital Signs and Lab Results Vital Signs Most Recent Vital Signs in EMR: Most Recent Vital Signs Temp Pulse Resp BP Pulse Ox 36.1 C L 103 H 14 152/91 H 100 02/14/22 08:38 02/14/22 08:38 02/14/22 08:38 02/14/22 08:38 02/14/22 08:38 Lab Results Blood Type / Crossmatch: No Data to Display Complete Blood Count: White Blood Count 9.36 10^3/uL (4.4-10.8) 02/02/22 23:30 Red Blood Count 4.46 10^6/uL (3.93-5.22) 02/02/22 23:30 Hemoglobin 14.3 g/dL (11.2-15.7) 02/02/22 23:30 Hematocrit 40.9 % (36.0-46.0) 02/02/22 23:30 Platelet Count 392 10^3/uL (130-400) 02/02/22 23:30 Complete Metabolic Panel: Sodium 135 mmol/L (136-145) L 02/02/22 23:30 Potassium 3.0 mmol/L (3.5-5.1) L 02/02/22 23:30 Chloride 97 mmol/L (98-107) L 02/02/22 23:30 Carbon Dioxide 30.7 mmol/L (21.0-32.0) 02/02/22 23:30 BUN 8 mg/dL (7-18) 02/02/22 23:30 Creatinine 0.7 mg/dL (0.55-1.02) 02/02/22 23:30 Est GFR (CKD-EPI 2020) 102.71 (mL/min/1.73m2) 02/02/22 23:30 Magnesium 2.0 mg/dL (1.8-2.4) 02/02/22 23:30 Calcium 8.7 mg/dL (8.5-10.1) 02/02/22 23:30 Albumin 3.8 g/dL (3.4-5.0) 02/02/22 23:30 Glucose 106 mg/dL (74-106) 02/02/22 23:30 Hemoglobin A1c 5.3 % (<5.7) 01/26/22 08:00 Liver Function Panel: Alanine Aminotransferase (ALT/SGPT) 22 U/L (14-59) 02/02/22 23:30 Aspartate Amino Transf (AST/SGOT) 18 U/L (15-37) 02/02/22 23:30 Coagulation Panel: No Data to Display Cardiac Panel: Troponin I < 50 ng/L (<or=60) 02/02/22 Arterial Blood Gas: No Data to Display Venous Blood Gas: No Data to Display Pancreas Panel: No Data to Display Thyroid Panel: Thyroid Stimulating Hormone (TSH) 1.61 uIU/mL (0.36-3.74) 01/26/22 08:00 Infectious Disease: No Data to Display Blood Cultures: No Data to Display Toxicology Panel: Ethyl Alcohol Level 114.7 mg/dL (<10) H 02/02/22 23:30 Urine Amphetamines Screen Negative (Negative) 02/03/22 00:48 Urine Benzodiazepines Screen Negative (Negative) 02/03/22 00:48 Urine Barbiturates Screen Negative (Negative) 02/03/22 00:48 Urine Cocaine Screen Negative (Negative) 02/03/22 00:48 Urine Methadone Screen Negative (Negative) 02/03/22 00:48 Urine Opiates Screen Negative (Negative) 02/03/22 00:48 Ur Tricyclic Antidepressants Screen Negative (Negative) 02/03/22 00:48 Ur Tetrahydrocannabinol (THC) Scrn Negative (Negative) 02/03/22 00:48 Panel: No Data to Display Imaging and Studies Imaging and Studies Study information below may be from another EMR and interpreted by another provider. Please see original notes in EMR for more complete details. EKG Summary: Conclusion Sinus rhythm...normal P axis, V-rate 60- 99 02/02/22 Anesthesia Assessment and Plan Anesthesia History Personal History: PONV Family History: No Family History of Anesthesia Complications Exercise Tolerance Exercise Tolerance: Metabolic Equivalents>4 Pertinent Negatives Pertinent Negatives: No Symptoms of GERD, No Major Cardiovascular Symptoms or Complaints, No Major Pulmonary Symptoms or Complaints and No History of CVA/TIA Cardiac & Pulmonary Exam Cardiac Exam: Normal S1/S2 Heart Sounds Pulmonary Exam: Clear Bilateral Breath Sounds Implantable Cardiac Device Does patient have a Pacemaker or an ICD?: No Airway Exam Known Difficult Airway: No Mallampati Class: 2 Mouth Opening: Normal (> 3cm) Thyromental Distance: Greater than 3 cm Neck Range of Motion: Full ROM Neck Circumference: Normal Teeth Condition: Normal Dentition ASA Classification ASA Score: ASA 2 Emergency Case?: No NPO Status NPO Status: NPO Clears >2 hours, Solids >8 hours Status Status: Not Relevant due to Medical History Anesthesia Plan Resuscitation Status: Full Code Anesthesia Technique: General Anesthesia Airway Planned: Natural Airway Monitors Used: Standard Monitors
[2022-02-14 09:38] VITALS: BMI 16.8
--- NOTE | 2022-02-14 10:08 | BOWEL_PTH ---
PATIENT: Natali Ibanez LOC: [facility] U#:[id number] AGE/SX: 56/F ROOM: RE02/14/[address]: Yvonne Wood MD : 1965 BED: DIS: 02/14/2022 SPEC #: [id number] RECD: 02/14/22 12:55 STATUS: COLEMAN REQ #: [id number] LENORA: 02/14/22 10:[address]: Yvonne Wood DEPT: Surgical Specimen RECD BY: Nasreen Murray ENTERED: 02/14/22 12:56 SP TYPE: Bowel OTHR DR: JONATHAN Anthony Tissues: 1 - BIOPSY BOWEL Procedures: GROSS AND MICRO LEVEL 4 Comments: [id number]
[2022-02-14 10:19] VITALS: BP 148/79; PULSE 98; RESP 16; TEMP 36.3; O2SAT 99
[2022-02-14] MEDS: Hyoscyamine 0.125 MG SL/ORAL/CHEW SL (10:28)
[2022-02-14 10:44] VITALS: BP 117/82; PULSE 87; RESP 18; TEMP 36.8; O2SAT 99
--- NOTE | 2022-02-14 11:00 | W.ANESPOSTOP ---
Postoperative Evaluation Date, Time and Location Date Performed: 02/14/22 Time Performed: 10:44 Patient Location: Day Surgery Unit Vital Signs Most Recent Imported Vital Signs: Most Recent Vital Signs Temp Pulse Resp BP Pulse Ox 36.8 C 87 18 117/82 99 02/14/22 10:44 02/14/22 10:44 02/14/22 10:44 02/14/22 10:44 02/14/22 10:44 Pain Score Most Recent Pain Score: Most Recent Pain Score Pain Level 2 02/14/22 10:19 Assessment Mental Status: Awake (Alert & Oriented to Patient Baseline) Airway and Respiratory Function: Patent airway with normal (patient baseline) respiratory exam Cardiovascular Function: Hemodynamically Stable Hydration Status: Adequately Hydrated Nausea & Vomiting: No Nausea or Vomiting Pain: Pt. Denies Any Pain Peripheral Nerve Block: Patient did not receive a nerve block
== END 2022-02-14 10:57 | disposition home or self-care (01) ==
PROVIDERS: PCP Nurse Practitioner Family; Visit Provider Surgery
PROC: 0DJD8ZZ Inspection of Lower Intestinal Tract, Via Natural or Artificial Opening Endoscopic (ICD-10-PCS; CPT 45378; principal; 2022-02-14 10:00)
DX: Z12.11 Encounter for screening for malignant neoplasm of colon (principal); K63.5 Polyp of colon; K57.30 Diverticulosis of large intestine without perforation or abscess without bleeding; Z86.010 Personal history of colon polyps
CPT/HCPCS: 45380; 88305; J2405; J3490

== ENCOUNTER → 2022-02-17 02:02 | Outpatient (CLI) | payer MEDICAID, SELFPAY ==
--- NOTE | 2022-02-17 08:35 | DI.CTLCSR_ITS ---
Exam(s) CT CHEST LUNG CANCER SCREEN EXAM: CT CHEST LUNG CANCER SCREEN CLINICAL HISTORY: Screening for lung cancer,CURRENT SMOKER, F17.210 TECHNIQUE: CT examination of the chest was performed utilizing low-dose lung cancer screening protoc ol. COMPARISON: No exams were available for comparison FINDINGS: Images obtained through the upper abdomen show unremarkable appearance of visualized portions of the liver and spleen. There is no mediastinal or hilar adenopathy. Mediastinal vascular structures appear intact by noncon trast criteria. Tracheobronchial tree appears intact. No pleural effusion or pleural-based mass. The lungs are predominantly clear, there is a noncalcified 2 millimeter in diameter right lower lobe intrapulmonary nodule, no additional significant nodule. IMPRESSION: Lung RADS Cat 2 - Benign Appearance / Behavior: Nodules with a very low likelihood of becoming a cli nically active cancer due to size or lack of growth Continue annual screening with LDCT in 12 months. Lung-RADS 1.0 CATEGORIES: Category 0 - Prior chest CT exam(s) being located for comparison. Category 1 - Annual screening in 12 months. No nodules or definitely benign nodules. Category 2 - Annual screening in 12 months. Benign appearance. Nodules with low likelihood of becomin g active cancer. Category 3 - 6-month follow-up. Probably benign. Short-term follow-up suggested. Nodules with low lik elihood of becoming active cancer. Category 4A - 3-month follow-up and CT/PET if >8 mm in size. Suspicious finding. Findings which requi re additional testing. Category 4B - Findings which require additional testing and tissue sampling. Suspicious finding. Category 4X - Category 3 or 4 nodules with additional features or imaging findings that increases the suspicion of malignancy. Modifier S- Potentially clinically significant finding. (Non lung cancer) RADIATION DOSE DELIVERED: Total DLP !Error CTDIvol Total DLP DATA REPOSITORY: All CT scans at this facility are submitted to the National Radiology Data Registry (NRDR) Dose Index Registry (DIR) with the [employer] (ACR). RADIATION OPTIMIZATION: All CT scans at this facility use at least one of these dose optimization te chniques: automated exposure control; mA and/or kV adjustment per patient size (includes targeted exa ms where dose is matched to clinical indication); or iterative reconstruction.
== END ==
PROVIDERS: PCP Nurse Practitioner Family; Visit Provider Nurse Practitioner Family
DX: F17.210 Nicotine dependence, cigarettes, uncomplicated (principal); Z12.2 Encounter for screening for malignant neoplasm of respiratory organs
CPT/HCPCS: 71271

== ENCOUNTER 2022-03-17 02:49 | Outpatient (CLI) | payer MEDICAID, SELFPAY ==
[2022-03-17 07:46] LABS: Anion Gap 7.3 mmol/L (3-11); BUN 10 mg/dL (7-18); CO2 30.7 mmol/L (21.0-32.0); CREATININE 0.8 mg/dL (0.55-1.02); Calcium 9.2 mg/dL (8.5-10.1); Chloride 96 mmol/L (98-107); Glucose 94 mg/dL (74-106); Potassium 3.6 mmol/L (3.5-5.1); Sodium 134 mmol/L (136-145)
== END 2022-03-17 02:50 | disposition home or self-care (01) ==
LOC: LBO 02:49
PROVIDERS: PCP Nurse Practitioner Family; Visit Provider Nurse Practitioner Family
DX: I10 Essential (primary) hypertension (principal)
CPT/HCPCS: 36415; 80048

== ENCOUNTER 2022-04-14 04:10 | Outpatient (CLI) | payer MEDICAID, SELFPAY ==
[2022-04-14 11:20] LABS: Anion Gap 8.1 mmol/L (3-11); BUN 10 mg/dL (7-18); CO2 29.9 mmol/L (21.0-32.0); CREATININE 0.7 mg/dL (0.55-1.02); Calcium 9.4 mg/dL (8.5-10.1); Chloride 98 mmol/L (98-107); Estimated GFR 102.71 (mL/min/1.73m2); Glucose 134 mg/dL (74-106); Potassium 3.6 mmol/L (3.5-5.1); Sodium 136 mmol/L (136-145)
== END 2022-04-14 04:11 | disposition home or self-care (01) ==
LOC: LBO 04:10
PROVIDERS: PCP Nurse Practitioner Family; Visit Provider Nurse Practitioner Family
DX: I10 Essential (primary) hypertension (principal)
CPT/HCPCS: 36415; 80048

== ENCOUNTER 2022-12-29 05:16 | Outpatient (CLI) | payer MEDICAID, SELFPAY ==
[2022-12-29 13:23] LABS: Hemoglobin A1C 5.4 % (<5.7)
[2022-12-29 14:01] LABS: ALT 24 U/L (14-59); AST 16 U/L (15-37); Albumin 3.9 g/dL (3.4-5.0); Alkaline Phosphatase 79 U/L (46-116); Anion Gap 8.8 mmol/L (3-11); BUN 13 mg/dL (7-18); Bilirubin, Total 0.3 mg/dL (0.2-1.0); CO2 30.2 mmol/L (21.0-32.0); CREATININE 0.7 mg/dL (0.55-1.02); Calcium 9.5 mg/dL (8.5-10.1); Calculated LDL 86 mg/dL (<100); Chloride 99 mmol/L (98-107); Cholesterol 225 mg/dL (<200); Estimated GFR 102.07 (mL/min/1.73m2); Glucose 104 mg/dL (74-106); HDL Cholesterol 124 mg/dL (40-60); Magnesium 2.2 mg/dL (1.8-2.4); Potassium 3.1 mmol/L (3.5-5.1); Sodium 138 mmol/L (136-145); TSH (W/Ref FT4) 3.22 uIU/mL (0.36-3.74); Total Protein 7.5 g/dL (6.4-8.2); Triglyceride 77 mg/dL (<150)
== END 2022-12-29 05:17 | disposition home or self-care (01) ==
PROVIDERS: PCP Nurse Practitioner Family; Visit Provider Nurse Practitioner Family
DX: Z00.00 Encounter for general adult medical examination without abnormal findings (principal)
CPT/HCPCS: 36415; 80053; 80061; 83036; 83735; 84443

== ENCOUNTER → 2023-01-12 00:44 | Outpatient (CLI) | payer MEDICAID, SELFPAY ==
--- NOTE | 2023-01-12 12:28 | DI.MAMMO_ITS ---
Exam(s) MAMMO SCREENING EXAM: MAMMO SCREENING CLINICAL HISTORY: screening,z12.39 TECHNIQUE: Bilateral full field digital CC and MLO mammographic images were obtained with 3D tomosyn thesis and utilizing computer aided detection (CAD). COMPARISON: Available for comparison. FINDINGS: Masses/Architectural Distortion: None seen. Microcalcifications: No suspicious pleomorphic-type are seen. Skin Thickening/Nipple Retraction: None. IMPRESSION: 1. No significant interval change with no specific features of malignancy noted. 2. Unless there is more urgent need, screening mammography is recommended, as per [employer] guidelines. BI-RADS Category 1 - Negative Breast Density - Category C - Heterogeneously dense Breast density category C or D implies that the patient has dense breast tissue. Dense breast tissue is very common and is not abnormal but dense breast tissue can make it harder to find cancer on a ma mmogram. Also, dense breast tissue may increase their breast cancer risk. This information about the result of the mammogram report was provided to the patient to raise their awareness. Use this report when you speak with the patient about their risks for breast cancer, which includes their family hist ory. At that time, you may recommend for more screening tests (Ultrasound or MRI) as they might be us eful based on their risk. A negative radiographic report should not delay biopsy if a dominant or clinically suspicious mass is present. Up to ten percent of cancers are not identified on mammography. A negative report may reinforce clinical impression. Adenosis and dense breasts may obscure an underlying neoplasm. False positive reports average 6 to 10%. Patient will receive a letter notifying them of these results.
== END ==
PROVIDERS: PCP Nurse Practitioner Family; Visit Provider Nurse Practitioner Family
DX: Z12.31 Encounter for screening mammogram for malignant neoplasm of breast (principal)
CPT/HCPCS: 77063; 77067

== ENCOUNTER 2023-01-19 04:47 | Outpatient (CLI) | payer MEDICAID, SELFPAY ==
[2023-01-19 11:18] LABS: Potassium 3.7 mmol/L (3.5-5.1)
== END 2023-01-19 04:48 | disposition home or self-care (01) ==
LOC: LBO 04:47
PROVIDERS: PCP Nurse Practitioner Family; Visit Provider Nurse Practitioner Family
DX: E87.6 Hypokalemia (principal)
CPT/HCPCS: 36415; 84132

== ENCOUNTER → 2023-03-02 00:32 | Outpatient (CLI) | payer MEDICAID, SELFPAY ==
--- NOTE | 2023-03-02 08:22 | DI.CTLCSR_ITS ---
Exam(s) CT CHEST LUNG CANCER SCREEN EXAM: CT CHEST LUNG CANCER SCREEN CLINICAL HISTORY: Screening for lung cancer,CURRENT SMOKER, F17.210. TECHNIQUE: Imaging Protocol: Low Dose Technique CONTRAST MATERIAL: None COMPARISON: CT CT CHEST LUNG CANCER SCREEN from 02/17/2022 FINDINGS: CHEST: LUNGS: Previously described 2 mm nodule in the lateral basal segment of the right lower lobe is uncha nged. Subpleural increased markings in the posterior basal segment of the right lower lobe previousl y present have resolved. Subpleural scarring in the right lung apex is unchanged. Benign-appearing increased markings in the medial segment of the right middle lobe are unchanged. There are no focal findings in the left lung. No new nodules. No pleural effusions. No new findings in the trachea an d mainstem bronchi. MEDIASTINUM: There is no obvious hilar nor mediastinal adenopathy. CARDIAC: Heart size is normal. There is no pericardial effusion.Caliber of the thoracic aorta is wit hin normal limits. OTHER: OSSEOUS: No significant new osseous lesions.No fractures.. IMPRESSION: 1. Stable benign-appearing right lung findings as described individually above. No left lung finding s. 2. No intrathoracic adenopathy nor pleural effusions. 3. Lung RADS Cat 2 - Benign Appearance / Behavior: Nodules with a very low likelihood of becoming a c linically active cancer due to size or lack of growth Lung-RADS 1.0 CATEGORIES: Category 0 - Prior chest CT exam(s) being located for comparison. Category 1 - Annual screening in 12 months. No nodules or definitely benign nodules. Category 2 - Annual screening in 12 months. Benign appearance. Nodules with low likelihood of becomin g active cancer. Category 3 - 6-month follow-up. Probably benign. Short-term follow-up suggested. Nodules with low lik elihood of becoming active cancer. Category 4A - 3-month follow-up and CT/PET if >8 mm in size. Suspicious finding. Findings which requi re additional testing. Category 4B - Findings which require additional testing and tissue sampling. Category 4X - Category 3 or 4 nodules with additional features or imaging findings that increases the suspicion of malignancy. Modifier S- Potentially clinically significant findings (non lung cancer) RADIATION DOSE DELIVERED: Total DLP DATA REPOSITORY: All CT scans at this facility are submitted to the National Radiology Data Registry (NRDR) Dose Index Registry (DIR) with the [employer] (ACR). RADIATION OPTIMIZATION: All CT scans at this facility use at least one of these dose optimization te chniques: automated exposure control; mA and/or kV adjustment per patient size (includes targeted exa ms where dose is matched to clinical indication); or iterative reconstruction.
== END ==
PROVIDERS: PCP Nurse Practitioner Family; Visit Provider Nurse Practitioner Family
DX: F17.210 Nicotine dependence, cigarettes, uncomplicated (principal); Z12.2 Encounter for screening for malignant neoplasm of respiratory organs; R91.1 Solitary pulmonary nodule
CPT/HCPCS: 71271

== ENCOUNTER 2023-08-18 09:41 | Emergency (ER) | payer MEDICAID, SELFPAY ==
[2023-08-18 10:01] VITALS: BP 163/80; PULSE 97; RESP 16; TEMP 37.2; O2SAT 95
[2023-08-18 10:40] LABS: Abs Immature Grans 0.02 10^3/uL (0.0-0.06); Absolute Basophil Count 0.06 10^3/uL (0.0-0.2); Absolute Eosinophil Count 0.07 10^3/uL (0.0-0.7); Absolute Monocyte Count 0.51 10^3/uL (0.1-0.8); Absolute Neutrophil Count 4.04 10^3/uL (1.2-6.7); Basophils % 0.8 %; HCT 42.3 % (36.0-46.0); Immature Grans % 0.3 %; Lymphocytes % 35.6 %; MCH 32.6 pg (27.0-33.0); MCHC 35.5 % (32.0-36.0); MCV 92 fL (80-95); Neutrophils % 55.3 %; Platelet Count 419 10^3/uL (130-400); RDW 12.9 % (11.7-14.6); RDW-SD 43.3 fL
[2023-08-18 10:41] LABS: Bilirubin Negative (Negative); Blood Negative (Negative); Clarity Clear (Clear); Glucose Negative (Negative); Ketones Negative (Negative); Leukocyte Esterase Negative (Negative); Nitrite Negative (Negative); Specific Gravity 1.015 (1.005-1.025); Urobilinogen 0.2 mg/dL (Up to 0.2)
[2023-08-18 10:54] LABS: ALT 35 U/L (14-59); AST 20 U/L (15-37); Albumin 4.8 g/dL (3.4-5.0); Alkaline Phosphatase 83 U/L (46-116); BUN 8 mg/dL (7-18); Bilirubin, Total 0.4 mg/dL (0.2-1.0); CREATININE 0.7 mg/dL (0.55-1.02); Calcium 9.3 mg/dL (8.5-10.1); Chloride 94 mmol/L (98-107); Estimated GFR 102.07 (mL/min/1.73m2); Glucose 108 mg/dL (74-106); Lipase 51 U/L (16-77); Magnesium 2.2 mg/dL (1.8-2.4); Potassium 3.5 mmol/L (3.5-5.1); Sodium 134 mmol/L (136-145); Total Protein 8.6 g/dL (6.4-8.2)
--- NOTE | 2023-08-18 11:00 | DI.US_ITS ---
Exam(s) US ABDOMEN LIMITED EXAM: US ABDOMEN LIMITED CLINICAL HISTORY: ruq TECHNIQUE: Ultrasound abdomen performed using standard protocol. COMPARISON: US US ABDOMEN from 01/11/2018 FINDINGS: PANCREAS: Normal where visualized. LIVER: Normal. Hepatopetal flow in the Portal Vein. The liver measures in 12.6 cm length. No evidence of a hepatic mass. GALLBLADDER: No evidence of cholelithiasis. No evidence of wall thickening. No pericholecystic fluid identified. There are 2 echogenic nodules along the wall of the gallbladder measuring up to 3 mm like ly reflecting polyps. BILIARY SYSTEM: Common bile duct measures < 7 mm. No intrahepatic biliary ductal dilation. PEGUERO'S SIGN: Negative. RIGHT KIDNEY: Kidney is normal in size. No evidence of renal calculi. No evidence of hydronephrosis. No renal mass or cyst identified. ASCITES: None seen. IMPRESSION: Gallbladder polyps. The largest measuring 3 mm. Otherwise unremarkable examination. DATA REPOSITORY:
--- NOTE | 2023-08-18 12:30 | DI.CT_ITS ---
Exam(s) CT ABDOMEN PELVIS W EXAM: CT ABDOMEN PELVIS W CLINICAL HISTORY: eigastric abd pain, prior pancreatitis TECHNIQUE: Imaging Protocol: Axial computed tomography images with coronal and sagittal reformatted images were created and reviewed. CONTRAST MATERIAL: Intravenous: Omnipaque 350 Contrast volume:70 mL Oral: No COMPARISON: CT CT ABDOMEN PELVIS W from 05/04/2021 FINDINGS: ABDOMEN: Lung Bases: Normal where visualized. Liver: Normal density. No measurable mass. Portal, Superior Mesenteric, and Splenic Veins: Unremarkable. Gallbladder and Biliary Tract: No radiodense calculus or dilation. Pancreas: Normal density, no abnormal calcifications or inflammatory process. Spleen: Normal. Adrenals: No masses seen. Kidneys: Normal size, contour and axis. No radiodense stones or obstructive uropathy. No masses seen. Abdominal Aorta: Abdominal portion non-dilated. Atherosclerotic calcification is present. Bowel: There is diverticulosis of the colon but no evidence of acute diverticulitis. There is no iain dence of bowel obstruction or bowel wall thickening. Appendix is unremarkable. Peritoneal Cavity: No ascites, collection or mesenteric inflammatory response. No free air. Lymph Nodes: Within normal limits. Bones: Within normal limits for the patient's age. Soft Tissues: Unremarkable. PELVIS: Bladder: The urinary bladder is incompletely distended limiting evaluation. There is mild thickening of the wall of the urinary bladder. Reproductive Organs: Stable appearance of the reproductive organs. Lymph Nodes: Within normal limits. Bones: Within normal limits for the patient's age. IMPRESSION: 1. The pancreas has a normal appearance. No cholelithiasis or biliary ductal dilatation. 2. Normal appendix. No evidence of obstructive uropathy. 3. Thickening of the wall of the urinary bladder. This may be due to underdistention. Cystitis walt ot be excluded. Please correlate clinically. 4. Colonic diverticulosis without evidence of acute diverticulitis. RADIATION DOSE DELIVERED: 455.47mGy.cm Total DLP DATA REPOSITORY: All CT scans at this facility are submitted to the National Radiology Data Registry (NRDR) Dose Index Registry (DIR) with the [employer] (ACR). RADIATION OPTIMIZATION: All CT scans at this facility use at least one of these dose optimization te chniques: automated exposure control; mA and/or kV adjustment per patient size (includes targeted exa ms where dose is matched to clinical indication); or iterative reconstruction.
[2023-08-18] MEDS: Normal Saline - Diluent 50 ML VIAL IJ (13:03)
[2023-08-18] MEDS: Omnipaque 350 MG/ML 100 ML BTL IJ (13:04)
[2023-08-18 13:35] VITALS: BP 142/72; PULSE 79; TEMP 36.7; O2SAT 100
--- NOTE | 2023-08-18 14:29 | ED.GENADUL_ITS ---
Discharge Plan Disposition Patient Disposition: Home Condition: Stable Discharge Details Clinical Impression: Epigastric abdominal pain Primary Care Provider: Ana Duran ED Provider: Jameson Katz Home Meds and New Rx's Prescriptions: Continued losartan 100 mg tablet 100 mg PO DAILY Qty: 90 3RF potassium chloride 20 mEq tablet extended release 20 meq PO DAILY Qty: 90 3RF hydrochlorothiazide 25 mg tablet 25 mg PO DAILY Qty: 90 3RF acetaminophen [Tylenol] 325 mg tablet 650 mg PO Q6H PRN (Reason: pain) Qty: 30 0RF Held ibuprofen 800 mg tablet 800 mg PO PRN Qty: 90 1RF Hold Instructions: Resume on 09/22/23. Discharge Instructions Instructions: Epigastric Pain (ED) Additional Instructions: Please contact your primary care physician to arrange follow-up. Return to the ER immediately for any worsening or new concerning symptoms. Referrals: Ana Duran, PODIATRIC MEDICINE DOCTOR [Primary Care Provider] - [facility] Mode of arrival: ambulatory . Date/Time Provider Initiated Documentation: 08/18/23 10:10 . Limitations to Documentation: no limitations . Information obtained by: patient . HPI Narrative: 57-year-old female presents with chief complaint of abdominal pain. Patient notes pain started yesterday and has persisted. Pain is moderate to severe currently rated 7/10. Pain localized to central upper abdomen. Patient notes prior history of pancreatitis. Current pain feels similar to prior flare. Patient does have associated nausea without vomiting. Related Data Home Medications Medication Instructions Recorded Confirmed acetaminophen 325 mg tablet 650 mg (2 x 325 mg) PO Q6H PRN 01/09/19 08/18/23 (Tylenol) pain #30 tabs ibuprofen 800 mg tablet 800 mg PO PRN #90 tabs 11/26/20 08/18/23 hydrochlorothiazide 25 mg tablet 25 mg PO DAILY #90 tabs 01/12/23 08/18/23 losartan 100 mg tablet 100 mg PO DAILY #90 tabs 02/17/23 08/18/23 potassium chloride 20 mEq 20 meq PO DAILY #90 tabs 04/14/23 08/18/23 tablet,extended release Previous Rx's Medication Instructions Recorded acetaminophen 325 mg tablet 650 mg (2 x 325 mg) PO Q6H PRN 01/09/19 (Tylenol) pain #30 tabs ibuprofen 800 mg tablet 800 mg PO PRN #90 tabs 11/26/20 hydrochlorothiazide 25 mg tablet 25 mg PO DAILY #90 tabs 01/12/23 losartan 100 mg tablet 100 mg PO DAILY #90 tabs 02/17/23 potassium chloride 20 mEq 20 meq PO DAILY #90 tabs 04/14/23 tablet,extended release Allergies Allergy/AdvReac Type Severity Reaction Status Date / Time codeine AdvReac Severe GI UPSET Verified 08/18/23 10:01 oxycodone AdvReac Severe GI UPSET Verified 08/18/23 10:01 amlodipine AdvReac Mild edema Verified 08/18/23 10:01 General Stated Complaint: Abd Prob SONIA: 3 Review of Systems All systems reviewed & are unremarkable except as noted in HPI and below Constitutional Constitutional: Denies fever(s) Gastrointestinal Gastrointestinal: Reports as per HPI Exam Const General: cooperative and no acute distress HENMT Mouth: moist mucous membranes Eyes Conjunctivae: normal conjunctivae Sclera: normal sclerae Resp Auscultation: clear to auscultation bilaterally, no rales, no rhonchi and no wheezes Cardio Rate: regular rate and not tachycardic Rhythm: regular rhythm GI Palpation: soft, not firm, no guarding, no masses, not rigid and tender in the epigastrum Neuro General: patient alert, patient awake and tone normal Course Vital Signs Vital signs: Vital Signs Temperature 37.2 C 08/18/23 10:01 Pulse 97 H 08/18/23 10:01 Respiratory Rate 16 08/18/23 10:01 Blood Pressure 163/80 H 08/18/23 10:01 Pulse Oximetry 95 08/18/23 10:01 Temperature 36.7 C 08/18/23 13:35 Temperature Source Tympanic 08/18/23 13:35 Pulse 79 08/18/23 13:35 Respiratory Rate 16 08/18/23 10:01 Respiratory Effort Normal, Non-Labored 08/18/23 10:03 Blood Pressure 142/72 H 08/18/23 13:35 Blood Pressure Position Sitting 08/18/23 10:01 Pulse Oximetry 100 08/18/23 13:35 Oxygen Delivery Method Room Air 08/18/23 13:35 Oxygen Flow Rate 0 08/18/23 13:35 Pain Level 7 08/18/23 10:01 Lab/Test Results Lab/Test Results: Laboratory Tests Range/Units 08/18/23 08/18/23 10:25 10:30 WBC (4.4-10.8) 10^3/uL 7.30 RBC (3.93-5.22) 10^6/uL 4.60 Hgb (11.2-15.7) g/dL 15.0 Hct (36.0-46.0) % 42.3 MCV (80-95) fL 92 MCH (27.0-33.0) pg 32.6 MCHC (32.0-36.0) % 35.5 RDW (11.7-14.6) % 12.9 Plt Count (130-400) 10^3/uL 419 H MPV (8.0-11.0) fL 8.0 Immature Gran % % 0.3 Neutrophils % % 55.3 Lymphocytes % % 35.6 Monocytes % % 7.0 Eosinophils % % 1.0 Basophils % % 0.8 Nucleated RBC % (0.0-0.3) % 0.0 Absolute Neutrophils (1.2-6.7) 10^3/uL 4.04 Absolute Lymphocytes (1.2-3.4) 10^3/uL 2.60 Absolute Monocytes (0.1-0.8) 10^3/uL 0.51 Absolute Eosinophils (0.0-0.7) 10^3/uL 0.07 Absolute Basophils (0.0-0.2) 10^3/uL 0.06 Sodium (136-145) mmol/L 134 L Potassium (3.5-5.1) mmol/L 3.5 Chloride (98-107) mmol/L 94 L Carbon Dioxide (21.0-32.0) mmol/L 31.0 Anion Gap (3-11) mmol/L 9.0 BUN (7-18) mg/dL 8 Creatinine (0.55-1.02) mg/dL 0.7 Est GFR (CKD-EPI 2020) (mL/min/1.73m2) 102.07 Glucose (74-106) mg/dL 108 H Calcium (8.5-10.1) mg/dL 9.3 Magnesium (1.8-2.4) mg/dL 2.2 Total Bilirubin (0.2-1.0) mg/dL 0.4 AST (15-37) U/L 20 ALT (14-59) U/L 35 Alkaline Phosphatase (46-116) U/L 83 Total Protein (6.4-8.2) g/dL 8.6 H Albumin (3.4-5.0) g/dL 4.8 Lipase (16-77) U/L 51 Urine Color (Yellow) Yellow Urine Clarity (Clear) Clear Urine pH (5-8) 6.0 Ur Specific [place] (1.005-1.025) 1.015 Urine Protein (Neg-Trace) mg/dL Negative Urine Ketones (Negative) mg/dL Negative Urine Blood (Negative) Negative Urine Nitrite (Negative) Negative Urine Bilirubin (Negative) Negative Urine Urobilinogen (Up to 0.2) mg/dL 0.2 Ur Leukocyte Esterase (Negative) Negative Urine Glucose (Negative) mg/dL Negative Medical Decision Making 57-year-old female with prior history of pancreatitis, presents today with jarrod re epigastric abdominal pain that started yesterday and has persisted. She has associated nausea without emesis. Patient is hemodynamically stable. She does have tenderness in her upper abdomen with no peritoneal findings. Concern for potential biliary disease including acute cholecystitis. LFTs normal. Right upper quadrant ultrasound was interpreted by radiology: Gallbladder polyps. The largest measuring 3 mm. Otherwise unremarkable examination. Consider pancreatitis and pancreatic abscess. Lipase normal. CT of the abdomen and pelvis was interpreted by radiology: 1. The pancreas has a normal appearance. No cholelithiasis or biliary ductal dilatation. 2. Normal appendix. No evidence of obstructive uropathy. 3. Thickening of the wall of the urinary bladder. This may be due to underdistention. Cystitis cannot be excluded. Please correlate clinically. 4. Colonic diverticulosis without evidence of acute diverticulitis. Patient was offered IV analgesic and she declined. Patient reassessed and pain has significantly improved since arrival without intervention. All results were discussed with the patient. Unclear etiology for pain at this time. Patient does note significant gas recently. She has had recent colonoscopy that was unremarkable. I have will have the patient follow-up with her PCP. Usual customary discharge instructions were reviewed. Patient provided informed refusal to wait for results of troponin testing. Patient left prior to receiving discharge instructions per nursing. Lab Data Lab results reviewed: Yes I reviewed the patient's lab results. Labs: Laboratory Tests Range/Units 08/18/23 08/18/23 10:25 10:30 WBC (4.4-10.8) 10^3/uL 7.30 RBC (3.93-5.22) 10^6/uL 4.60 Hgb (11.2-15.7) g/dL 15.0 Hct (36.0-46.0) % 42.3 MCV (80-95) fL 92 MCH (27.0-33.0) pg 32.6 MCHC (32.0-36.0) % 35.5 RDW (11.7-14.6) % 12.9 Plt Count (130-400) 10^3/uL 419 H MPV (8.0-11.0) fL 8.0 Immature Gran % % 0.3 Neutrophils % % 55.3 Lymphocytes % % 35.6 Monocytes % % 7.0 Eosinophils % % 1.0 Basophils % % 0.8 Nucleated RBC % (0.0-0.3) % 0.0 Absolute Neutrophils (1.2-6.7) 10^3/uL 4.04 Absolute Lymphocytes (1.2-3.4) 10^3/uL 2.60 Absolute Monocytes (0.1-0.8) 10^3/uL 0.51 Absolute Eosinophils (0.0-0.7) 10^3/uL 0.07 Absolute Basophils (0.0-0.2) 10^3/uL 0.06 Sodium (136-145) mmol/L 134 L Potassium (3.5-5.1) mmol/L 3.5 Chloride (98-107) mmol/L 94 L Carbon Dioxide (21.0-32.0) mmol/L 31.0 Anion Gap (3-11) mmol/L 9.0 BUN (7-18) mg/dL 8 Creatinine (0.55-1.02) mg/dL 0.7 Est GFR (CKD-EPI 2020) (mL/min/1.73m2) 102.07 Glucose (74-106) mg/dL 108 H Calcium (8.5-10.1) mg/dL 9.3 Magnesium (1.8-2.4) mg/dL 2.2 Total Bilirubin (0.2-1.0) mg/dL 0.4 AST (15-37) U/L 20 ALT (14-59) U/L 35 Alkaline Phosphatase (46-116) U/L 83 Total Protein (6.4-8.2) g/dL 8.6 H Albumin (3.4-5.0) g/dL 4.8 Lipase (16-77) U/L 51 Urine Color (Yellow) Yellow Urine Clarity (Clear) Clear Urine pH (5-8) 6.0 Ur Specific [place] (1.005-1.025) 1.015 Urine Protein (Neg-Trace) mg/dL Negative Urine Ketones (Negative) mg/dL Negative Urine Blood (Negative) Negative Urine Nitrite (Negative) Negative Urine Bilirubin (Negative) Negative Urine Urobilinogen (Up to 0.2) mg/dL 0.2 Ur Leukocyte Esterase (Negative) Negative Urine Glucose (Negative) mg/dL Negative Quality:SDOH Health Related Social Needs: No Data to Display PFSH All Active Problems (Updated 08/18/23 @ 15:12 by Jameson Katz MD) Epigastric abdominal pain (Acute) Essential hypertension (Chronic) Unintentional weight loss (Chronic) Tubular adenoma of colon (Chronic ~2016) Cigarette smoker (Chronic) Migraine headache with aura (Chronic) Colon, diverticulosis (Chronic) Medical History Hx of pancreatitis (~2016) Syncope From amlodipine Gastroesophageal reflux disease Dysfunctional uterine bleeding S/P hyst./ovaries remain Surgical History History of hand surgery left hand, tumor removed from finger S/P colonoscopy (~02/2022) S/P knee surgery S/P recurrent ventral herniorrhaphy (01/09/19) 01/19, ventrral/umbilical hernia required revision, chronic sensitivity around umbilicus H/O thumb surgery on right side only History of section History of umbilical hernia repair 2018 2013 Status post LEEP (loop electrosurgical excision procedure) of cervix Status post laparoscopic hysterectomy Cervix and ovaries remain Family History Mother Hypertension Father , 66 Colon cancer Liver cancer Brother No problems noted. Brother Rectal cancer Non-small cell lung cancer metastatic to liver Sister No problems noted. Son No problems noted. Daughter No problems noted. Daughter No problems noted. Maternal Grandfather No problems noted. Maternal Grandmother Brain cancer Paternal Grandfather Cancer Paternal Grandmother Cancer Social History Smoking/Tobacco Use Status: Current every day Tobacco Type: cigarettes Smoking packs per day: 0.5 Smoking cigarettes per day: 10.0 Years smoked: 40 Smoking pack-years: 20.00 Second Hand Exposure: Yes Smoking risk assessment performed?: Yes Alcohol Intake: current Alcohol Intake frequency: a few times a week Alcohol type: beer Drug use: Never Substance use type: does not use Details: pt states 4-6 drinks per day Housing: house Current gender identity: female Do you feel safe at home: Yes Do you feel safe in your relationship?: Yes
[2023-08-18 15:04] VITALS: BP 142/72; PULSE 79; RESP 16; TEMP 36.7; O2SAT 100
[2023-08-18 15:06] VITALS: BP 142/72; PULSE 76; RESP 16; TEMP 36.7; O2SAT 100
[2023-08-18 15:21] LABS: Troponin I < 50 ng/L (< or =60)
== END 2023-08-18 15:33 | disposition home or self-care (01) ==
PROVIDERS: Emergency Provider Student in an Organized Health Care Education/Training Program; PCP Nurse Practitioner Family
DX: R10.13 Epigastric pain (principal); R11.0 Nausea; I10 Essential (primary) hypertension; F17.210 Nicotine dependence, cigarettes, uncomplicated
CPT/HCPCS: 36415; 80053; 83690; 99285; 74177; 76705; 81003; 83735; 84484; 85025; 99284; J3490

== ENCOUNTER 2024-03-01 02:20 | Outpatient (CLI) | payer MEDICAID, SELFPAY ==
[2024-03-01 11:07] LABS: Anion Gap 9.3 mmol/L (3-11); BUN 8 mg/dL (7-18); CO2 28.7 mmol/L (21.0-32.0); CREATININE 0.7 mg/dL (0.55-1.02); Calcium 9.1 mg/dL (8.5-10.1); Chloride 96 mmol/L (98-107); Estimated GFR 101.44 (mL/min/1.73m2); Glucose 129 mg/dL (74-106); Potassium 3.7 mmol/L (3.5-5.1); Sodium 134 mmol/L (136-145); TSH (W/Ref FT4) 1.59 uIU/mL (0.36-3.74)
[2024-03-04 11:56] LABS: HIV-1/2 Ag & Ab Screen Negative (Negative)
[2024-03-04 12:22] LABS: HBs Antibody, Quant <3.1 mIU/mL (See Note); Hep B Surface Ab Negative (See Note); Hepatitis B Core Antibody Negative (Negative); Hepatitis B Surface Antigen Negative (Negative)
[2024-03-04 12:30] LABS: Hepatitis C Ab w Rflx HCV PCR Negative (Negative)
== END 2024-03-01 02:21 | disposition home or self-care (01) ==
LOC: LBO 02:20
PROVIDERS: PCP Nurse Practitioner Family; Visit Provider Nurse Practitioner Family
DX: I10 Essential (primary) hypertension (principal); Z11.59 Encounter for screening for other viral diseases; Z11.4 Encounter for screening for human immunodeficiency virus [HIV]; R63.4 Abnormal weight loss
CPT/HCPCS: 36415; 80048; 86704; 86706; 86803; 87340; 87389; 84443

== ENCOUNTER 2024-03-15 00:20 | Outpatient (CLI) | payer MEDICAID, SELFPAY ==
--- NOTE | 2024-03-15 08:14 | DI.MAMMO_ITS ---
Exam(s) MAMMO SCREENING EXAM: MAMMO SCREENING CLINICAL HISTORY: screening,z12.39. TECHNIQUE: Bilateral full field digital CC and MLO mammographic images were obtained with 3D tomosyn thesis and utilizing computer aided detection (CAD). COMPARISON: Prior mammograms were reviewed. FINDINGS: Fibroglandular tissue pattern is again noted be moderately dense. There are no new spiculated masses nor malignant appearing microcalcification groups. Benign-appearing microcalcifications are again noted in both breasts. There is no significant architectural distortion nor skin thickening-retraction. IMPRESSION: No radiographic evidence of malignancy. Stable benign-appearing findings. BI-RADS Category 2 - Benign Findings Breast Density - Category C - Heterogeneously dense Breast density Category C or D implies that the patient has dense breast tissue. Dense breast tissue can make it harder to find cancer on a mammogram. Dense breast tissue is also associated with an incr eased risk of breast cancer. This information about the result of the mammogram report was provided to the patient to raise their awareness. Use this report when you speak with the patient about their risks for breast cancer, which includes their family history. At that time, you may recommend additional screening tests (Ultrasoun d or MRI) as these tests may add significant information. A negative radiographic report should not delay biopsy if a dominant or clinically suspicious mass is present. Up to ten percent of cancers are not identified on mammography. A negative report may reinforce clinical impression. Adenosis and dense breasts may obscure an underlying neoplasm. False positive reports average 6 to 10%. Patient will receive a letter notifying them of these results.
--- NOTE | 2024-03-15 08:18 | DI.CTLCSR_ITS ---
Exam(s) CT CHEST LUNG CANCER SCREEN EXAM: CT CHEST LUNG CANCER SCREEN CLINICAL HISTORY: Screening for lung cancer,current smoker, f17.210. TECHNIQUE: Imaging Protocol: Low Dose Technique CONTRAST MATERIAL: None COMPARISON: CT ABD PELVIS WITH CONTRAST from 04/17/[address] ABDOMEN PELVIS W from 05/04/[address] CHEST LUNG CANCER SCREEN from 03/02/2023 FINDINGS: CHEST: LUNGS: There are no new ominous pulmonary nodules. Previously described tiny benign-appearing nodule in the right lower lobe is unchanged. There is a pleural based noncalcified 4 mm nodule in lateral b yadira segment the left lower lobe which is unchanged from prior CT scans listed above dating back to a t least 2016. There are no new lung nodules, infiltrates, nor pleural effusions. No significant find ings in the trachea and mainstem bronchi. MEDIASTINUM: There is no obvious hilar nor mediastinal adenopathy. CARDIAC: Heart size is normal. There is no pericardial effusion.Caliber of the thoracic aorta is wit hin normal limits. OTHER: No obvious adrenal masses. No splenomegaly. OSSEOUS: No significant osseous lesions.No fractures. IMPRESSION: 1. Stable unchanged small nodule in each lung. No new nodules in either lung field and no infiltrate s nor pleural effusions 2. No intrathoracic adenopathy. 3. Lung RADS Cat 2 - Benign Appearance / Behavior: Nodules with a very low likelihood of becoming a c linically active cancer due to size or lack of growth Lung-RADS 1.0 CATEGORIES: Category 0 - Prior chest CT exam(s) being located for comparison. Category 1 - Annual screening in 12 months. No nodules or definitely benign nodules. Category 2 - Annual screening in 12 months. Benign appearance. Nodules with low likelihood of becomin g active cancer. Category 3 - 6-month follow-up. Probably benign. Short-term follow-up suggested. Nodules with low lik elihood of becoming active cancer. Category 4A - 3-month follow-up and CT/PET if >8 mm in size. Suspicious finding. Findings which requi re additional testing. Category 4B - Findings which require additional testing and tissue sampling. Category 4X - Category 3 or 4 nodules with additional features or imaging findings that increases the suspicion of malignancy. Modifier S- Potentially clinically significant findings (non lung cancer) RADIATION DOSE DELIVERED: 17.1mGy.cm Total DLP DATA REPOSITORY: All CT scans at this facility are submitted to the National Radiology Data Registry (NRDR) Dose Index Registry (DIR) with the [employer] (ACR). RADIATION OPTIMIZATION: All CT scans at this facility use at least one of these dose optimization te chniques: automated exposure control; mA and/or kV adjustment per patient size (includes targeted exa ms where dose is matched to clinical indication); or iterative reconstruction.
== END 2024-03-15 00:40 ==
LOC: DI 00:20
PROVIDERS: PCP Nurse Practitioner Family; Visit Provider Nurse Practitioner Family
DX: Z12.31 Encounter for screening mammogram for malignant neoplasm of breast (principal); F17.210 Nicotine dependence, cigarettes, uncomplicated; R91.1 Solitary pulmonary nodule; Z12.2 Encounter for screening for malignant neoplasm of respiratory organs
CPT/HCPCS: 71271; 77063; 77067

== ENCOUNTER 2024-03-15 01:24 | Outpatient (CLI) | payer MEDICAID, SELFPAY ==
--- NOTE | 2024-03-15 09:45 | W.NUTRFU ---
Date of service: 03/15/24 Time of Service: 08:45 Nutrition Note NOTE: Natali referred for nutrition visit over concerns of unintentional weight loss with her weight at provider visit 02/23/24 at 86.2lbs. She states that a healthy usual body weight for her was around 125lbs. She sites COVID vaccines as the precipitating event in 2020 that started this weight loss. Denies nausea. She takes no supplements at home. She is up 2-3 times per night and might find herself snacking during these times. 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 She states she has a very difficult time eating in the morning - typically just coffee with cream and sugar then will have pb and j sandwich in the afternoon and snack on some granola, nuts, yogurt and have her biggest meal at dinner. Reviewed her estimated energy needs as about 1262kcals and suggested aiming for 1600 kcals as goal - gave sample menus and also supported with going over multiple handouts identifying high protein foods, high kcal/protein recipes, and tips such as eating 5-6 times per day and avoiding too much coffee to prevent appetite suppression. Reviewed that she is not meeting her protein needs most days and needs to support her physical job - suggested trying to hit a good 90g protein minimum per day and reviewed sources and strategies - suggested whey protein once per day with 1 scoop about 25g protein. Suggested multivitamin and mineral and take extra vitamin D3 at 1,000IU per day nutrition support. Also have 3 samples of Boost high kcal/protein oral nutrition supplements - suggested she approach PCP if they help as insurance may be able to cover these if ordered via [email or web address] or pharmacy. Gave her my card to call with any help reviewing diet recalls (suggested she record for 2-3 days and bring in to assess intake compared to recommendations). Will remain available for for follow up or to provide any additional educational resources. Time Spent in Nutritional Counseling and Treatment: 40 minutes
== END 2024-03-15 01:25 | disposition home or self-care (01) ==
LOC: DS 01:24
PROVIDERS: PCP Nurse Practitioner Family; Visit Provider Dietitian, Registered
DX: Z71.3 Dietary counseling and surveillance (principal)
CPT/HCPCS: 00123; 97802

== ENCOUNTER 2024-05-13 08:34 | Inpatient (IN) | payer MEDICAID, SELFPAY ==
[2024-05-13] VITALS (45 sets, daily range): BP systolic 116–184; BP diastolic 51–95; PULSE 56–105; RESP 5–32; TEMP 36.6–37; O2SAT 90–97
--- NOTE | 2024-05-13 08:30 | RT.EKG_ITS ---
APPROVED REPORT Exam: Resting ECG Reason for Exam: sob Patient Location: E HR:96 bpm ECG Measurements Heart Rate 96 AXIS NJ 108 P 78 QRSd 92 QRS 48 QT 334 T 70 QTc 421 Conclusion Sinus rhythm...normal P axis, V-rate 60- 99 No STEMI
--- NOTE | 2024-05-13 08:36 | W.ED.GENAD ---
Discharge Plan Discharge Details Chief Complaint: SOB Admit Date/Time: 05/13/24 13:03 Admit Provider: Thelma Matthew Attending Provider: Thelma Matthew Primary Care Provider: Ana Duran ED Provider: Alysha Albert General Date/Time Provider Initiated Documentation: 05/13/24 08:35. HPI Narrative: Natali is a 58 year old female who presents to the emergency department today for evaluation of viral symptoms, including productive cough. She reports that she started feeling unwell 6 days ago, has had subjective fever/chills, congestion, sinus headache, ear pressure, sore throat, cough that is productive of mucus, mild nausea and vomiting, soft stools, and cold sores to her right upper lip/above right upper lip. No blood in stool or emesis. No recorded fevers. Has been able to take p.o. without difficulty, though appetite is lower than usual. She did return from the [facility] last night, symptoms started while she was on vacation. Past medical history is significant for HTN, tobacco use, migraine headaches, and diverticulosis. She has had to use inhalers in the past for bronchitis. Physical exam reassuring. Crystal is alert and oriented, no acute distress. Occasional dry hacking cough. End expiratory wheezes throughout all lung sanchez. Normal heart sounds, mild tachycardia noted. No cervical or submandibular lymphadenopathy. Moist mucous membranes. TMs pearly freed, translucent. Dried lesions noted to right upper lip and right above lip, no drainage, erythema, or vesicles noted. D/dx includes but is not limited to: Viral illness, pneumonia, asthma exacerbation/bronchitis, dehydration, electrolyte imbalance I independently interpreted the following tests: EKG reassuring, normal sinus rhythm rate 96, no changes consistent with acute ischemia. Normal intervals. Chest x-ray has no obvious infiltrates, however there are increased markings in the lingular segment of the left lung consistent with infiltrates per radiologist. CBC, VBG, and troponin reassuring. Hypokalemia noted, potassium 2.9. Patient admits that she has not taken her potassium supplementation regularly as prescribed for the last week or so. She was given p.o. and IV potassium supplementation. While in the emergency department, Natali received Duoneb nebulizer treatment with some improvement of symptoms. Solu-Medrol given for tight wheezes. Tylenol given for discomfort. As patient had desaturation down to 88% with ambulation and tachycardia with lightheadedness, she would benefit from admission. Azithromycin and ceftriaxone IV given for treatment of pneumonia. Presented case with Dr. Castro, [facility] hospitalist. Patient to be admitted for monitoring and treatment of community-acquired pneumonia. Related Data Home Medications ?Medication ?Instructions ?Recorded ?Confirmed ibuprofen 800 mg tablet 800 mg PO PRN #90 tabs 11/26/20 05/13/24 potassium chloride 20 mEq 20 meq PO DAILY #90 tabs 04/14/23 05/13/24 tablet,extended release hydrochlorothiazide 25 mg tablet 25 mg PO DAILY #90 tabs 01/11/24 05/13/24 losartan 100 mg tablet 100 mg PO DAILY #90 tabs 02/23/24 05/13/24 Previous Rx's ?Medication ?Instructions ?Recorded ibuprofen 800 mg tablet 800 mg PO PRN #90 tabs 11/26/20 potassium chloride 20 mEq 20 meq PO DAILY #90 tabs 04/14/23 tablet,extended release hydrochlorothiazide 25 mg tablet 25 mg PO DAILY #90 tabs 01/11/24 losartan 100 mg tablet 100 mg PO DAILY #90 tabs 02/23/24 Allergies Allergy/AdvReac Type Severity Reaction Status Date / Time codeine AdvReac Severe GI UPSET Verified 05/13/24 08:38 oxycodone AdvReac Severe GI UPSET Verified 05/13/24 08:38 amlodipine AdvReac Mild edema Verified 05/13/24 08:38 General SONIA: 3 Review of Systems Narrative: see HPI Exam Const General: cooperative, anxious and ill appearing Nutritional Appearance: average body habitus Orientation: alert and oriented x3 HENMT Head: normal to inspection Ears: hearing grossly normal bilaterally, external ears normal and TM's normal bilaterally General nose exam: external nose normal Mouth: oral mucosae normal and moist mucous membranes Neck Neck: normal visual inspection and no lymphadenopathy Resp Effort & Inspection: normal respiratory effort and able to speak in complete sentences Auscultation: wheezes (End expiratory wheezes throughout all lung sanchez) Cardio Rate: tachycardic Rhythm: regular rhythm GI Inspection: normal to inspection Palpation: soft, not firm, no guarding, not rigid and nontender Skin Lesions: lesion noted (R upper lip) Medical Decision Making Imaging Data Radiologic Study: Radiologist's impression: Exam(s) XR CHEST 2V PA LATERAL EXAM: XR CHEST 2V PA LATERAL CLINICAL HISTORY: cough after travel, viral sx. TECHNIQUE: 2D digital imaging was performed. COMPARISON: CR,XR XR PORTABLE CHEST AP from 02/03/2022 FINDINGS: 2 views: Heart size is normal. The mediastinum is not widened. Right lung is clear. However, there increased markings in the lingular segment of the left lung. Consistent with infiltrate. No pleural effusions. No pneumothorax. Quality:SDOH Health Related Social Needs: Health related social needs education (Z55.6) PFSH All Active Problems Essential hypertension (Chronic) Unintentional weight loss (Chronic) Cigarette smoker (Chronic) Migraine headache with aura (Chronic) Colon, diverticulosis (Chronic) Medical History Tubular adenoma of colon On 2016 and 2021 colonoscopies Hx of pancreatitis (~2016) Syncope From amlodipine Gastroesophageal reflux disease Dysfunctional uterine bleeding S/P hyst./ovaries remain Surgical History History of hand surgery left hand, tumor removed from finger S/P colonoscopy (~02/2022) S/P knee surgery S/P recurrent ventral herniorrhaphy (01/09/19) 01/19, ventrral/umbilical hernia required revision, chronic sensitivity around umbilicus H/O thumb surgery on right side only History of section History of umbilical hernia repair 2018 2013 Status post LEEP (loop electrosurgical excision procedure) of cervix Status post laparoscopic hysterectomy Cervix and ovaries remain Family History Mother Hypertension Father , 66 Colon cancer Liver cancer Brother No problems noted. Brother , 52 Rectal cancer Non-small cell lung cancer metastatic to liver Sister No problems noted. Son No problems noted. Daughter No problems noted. Daughter No problems noted. Maternal Grandfather No problems noted. Maternal Grandmother Brain cancer Paternal Grandfather Cancer Paternal Grandmother Cancer Social History Smoking/Tobacco Use Status: Current every day Tobacco Type: cigarettes Smoking packs per day: 0.5 Smoking cigarettes per day: 10.0 Years smoked: 40 Smoking pack-years: 20.00 Second Hand Exposure: Yes Smoking risk assessment performed?: Yes Alcohol Intake: current Alcohol Intake frequency: a few times a week Alcohol type: beer Drug use: Never Substance use type: does not use Details: pt states 4-6 drinks per day Housing: house Current gender identity: female Do you feel safe at home: Yes Do you feel safe in your relationship?: Yes
[2024-05-13 09:24] LABS: Abs Immature Grans 0.02 10^3/uL (0.0-0.06); Absolute Basophil Count 0.02 10^3/uL (0.0-0.2); Absolute Lymphocyte Count 1.67 10^3/uL (1.2-3.4); Absolute Neutrophil Count 3.12 10^3/uL (1.2-6.7); Basophils % 0.3 %; Eosinophils % 1.7 %; HCT 41.5 % (36.0-46.0); HGB 14.6 g/dL (11.2-15.7); Immature Grans % 0.3 %; Lymphocytes % 28.6 %; MCH 32.5 pg (27.0-33.0); MCHC 35.2 % (32.0-36.0); MCV 92 fL (80-95); MPV 8.7 fL (8.0-11.0); Monocytes % 15.4 %; Neutrophils % 53.7 %; Platelet Count 304 10^3/uL (130-400); RBC 4.49 10^6/uL (3.93-5.22); RDW 13.2 % (11.7-14.6); WBC 5.83 10^3/uL (4.4-10.8)
[2024-05-13 09:37] LABS: ALT 33 U/L (14-59); AST 31 U/L (15-37); Albumin 3.9 g/dL (3.4-5.0); Alkaline Phosphatase 87 U/L (46-116); Anion Gap 7.8 mmol/L (3-11); BUN 5 mg/dL (7-18); Bilirubin, Total 0.32 mg/dL (0.2-1.0); CO2 34.2 mmol/L (21.0-32.0); CREATININE 0.7 mg/dL (0.55-1.02); Calcium 9.3 mg/dL (8.5-10.1); Chloride 94 mmol/L (98-107); Estimated GFR 101.44 (mL/min/1.73m2); Glucose 112 mg/dL (74-106); Sodium 136 mmol/L (136-145); Total Protein 7.9 g/dL (6.4-8.2)
[2024-05-13 09:39] LABS: Potassium 2.9 mmol/L (3.5-5.1)
[2024-05-13 09:46] LABS: Troponin I 18 ng/L (<or=51)
[2024-05-13] MEDS: Acetaminophen 500 MG TAB 1000 MG PO (09:55)
[2024-05-13] MEDS: Albuterol/Ipratropium 3 ML UPD VIAL UPD ×3 (09:55→22:02)
[2024-05-13] MEDS: POTASSIUM CHLORIDE 20 MEQ/100 ML BAG 50 MEQ IV_INF (09:56)
[2024-05-13] MEDS: Potassium Bicarbonate/Cit AC 25 MEQ TABLET.EFF 50 MEQ PO (10:20)
[2024-05-13] MEDS: methylPREDNISolone SUCC 125 MG VIAL IVP (10:32)
[2024-05-13] MEDS: Albuterol/Ipratropium 3 ML UPD VIAL 6 ML UPD (10:33)
--- NOTE | 2024-05-13 10:38 | DI.RAD_ITS ---
Exam(s) XR CHEST 2V PA LATERAL EXAM: XR CHEST 2V PA LATERAL CLINICAL HISTORY: cough after travel, viral sx. TECHNIQUE: 2D digital imaging was performed. COMPARISON: CR,XR XR PORTABLE CHEST AP from 02/03/2022 FINDINGS: 2 views: Heart size is normal. The mediastinum is not widened. Right lung is clear. However, there increased markings in the lingular segment of the left lung. Co nsistent with infiltrate. No pleural effusions. No pneumothorax. IMPRESSION: Some infiltrates evident in the lingular segment of the left lung. There are no pleural effusions. DATA REPOSITORY: RADIATION DOSE DELIVERED:
[2024-05-13 11:42] LABS: BE (Venous) 9 mmol/L (-2-3); HCO3 (Venous) 33 mmol/L (23-28); O2 Sat (Venous) 72 %; TCO2 (Venous) 29 mmol/L (24-29); pCO2 (Venous) 46 mmHg (41-51); pH (Venous) 7.46 (7.31-7.41); pO2 (Venous) 37 mmHg
[2024-05-13 12:07] LABS: Anion Gap 5.9 mmol/L (3-11); BUN 7 mg/dL (7-18); CO2 33.1 mmol/L (21.0-32.0); CREATININE 0.7 mg/dL (0.55-1.02); Calcium 8.5 mg/dL (8.5-10.1); Chloride 96 mmol/L (98-107); Estimated GFR 101.44 (mL/min/1.73m2); Glucose 187 mg/dL (74-106); Potassium 3.8 mmol/L (3.5-5.1); Sodium 135 mmol/L (136-145)
[2024-05-13] MEDS: cefTRIAXone 2 GM/50 ML BAG IVPB (12:24)
[2024-05-13] MEDS: AZITHROMYCIN 500 MG in Normal Saline 250 ML 250 MG IVPB (13:04)
--- NOTE | 2024-05-13 13:52 | W.PC.ACHO ---
Registration Status: Primary Language: Preferred Language: ED Information & Data Chief Complaint SOB 05/13/24 08:47 Chief Complaint SOB 05/13/24 08:39 Triage Note pt is just returning from 05/13/24 08:[address] [facility] and reports worsening cough and feels like she cannot breathe. Cough sounds harsh and productive. ear pain, body aches and chills Medical / Surgical History (Last Reviewed 02/23/24 @ 10:39 by Ana Duran NP) Tubular adenoma of colon Hx of pancreatitis (~2016) Syncope Gastroesophageal reflux disease Dysfunctional uterine bleeding (Last Reviewed 02/23/24 @ 10:39 by Ana Duran NP) History of hand surgery S/P colonoscopy (~02/2022) S/P knee surgery S/P recurrent ventral herniorrhaphy (01/09/19) H/O thumb surgery History of section History of umbilical hernia repair Status post LEEP (loop electrosurgical excision procedure) of cervix Status post laparoscopic hysterectomy Most Recent Vital Signs Temperature 36.7 C 05/13/24 08:39 Temperature Source Oral 05/13/24 08:39 Pulse 92 H 05/13/24 13:40 Pulse 89 05/13/24 13:40 Respiratory Rate 27 H 05/13/24 13:40 Respiratory Pattern Tachypnea 05/13/24 11:16 Blood Pressure 158/95 H 05/13/24 12:01 Blood Pressure Mean 106 05/13/24 12:01 Pulse Oximetry 96 05/13/24 13:40 Oxygen Delivery Method Room Air 05/13/24 11:16 Oxygen Flow Rate 0 05/13/24 11:16 Pain Level 9 05/13/24 08:39 Allergies codeine Adverse Reaction (Severe, Verified 05/13/24 08:38) GI UPSET oxycodone Adverse Reaction (Severe, Verified 05/13/24 08:38) GI UPSET amlodipine Adverse Reaction (Mild, Verified 05/13/24 08:38) edema Pt states she now takes this med on a regular basis Precautions Isolation PUI 05/13/24 08:47 Active Medications Generic Name Dose Route Start Last Admin Trade Name Freq PRN Reason Stop Dose Admin Ceftriaxone Sodium/Dextrose 2 gm in 50 mls @ 100 mls/hr 05/13/24 12:15 05/13/24 12:24 Rocephin IVPB 100 mls/hr Q24H MELISSA Administration IV IV Catheter Type [Right Saline Lock Antecubital] IV Catheter Gauge [Right 18 Antecubital] Diagnostics 05/13/24 05/13/24 05/13/24 Range/Units 12:02 11:35 10:02 WBC (4.4-10.8) 10^3/uL RBC (3.93-5.22) 10^6/uL Hgb (11.2-15.7) g/dL Hct (36.0-46.0) % MCV (80-95) fL MCH (27.0-33.0) pg MCHC (32.0-36.0) % RDW (11.7-14.6) % Plt Count (130-400) 10^3/uL MPV (8.0-11.0) fL Immature Gran % % Neutrophils % % Band Neutrophils % Lymphocytes % % Atypical Lymphs % Monocytes % % Eosinophils % % Basophils % % Metamyelocytes % Myelocytes % Promyelocytes % Other Cells % Nucleated RBC % (0.0-0.3) % Absolute Neutrophils (1.2-6.7) 10^3/uL Absolute Lymphocytes (1.2-3.4) 10^3/uL Absolute Monocytes (0.1-0.8) 10^3/uL Absolute Eosinophils (0.0-0.7) 10^3/uL Absolute Basophils (0.0-0.2) 10^3/uL RBC Morphology Polychromasia Hypochromasia Poikilocytosis Basophilic Stippling Anisocytosis Microcytosis Macrocytosis Spherocytes Tear Drop Cells Ovalocytes Stomatocytes [place] Bodies Erica Cells/Echinocytes Acanthocytes (Spur) Schistocytes VBG pH 7.46 H (7.31-7.41) VBG pCO2 46 (41-51) mmHg VBG pO2 37 mmHg VBG HCO3 33 H (23-28) mmol/L VBG Total CO2 29 (24-29) mmol/L VBG O2 Saturation 72 % VBG Base Excess 9 H (-2-3) mmol/L Sodium 135 L (136-145) mmol/L Potassium 3.8 (3.5-5.1) mmol/L Chloride 96 L (98-107) mmol/L Carbon Dioxide 33.1 H (21.0-32.0) mmol/L Anion Gap 5.9 (3-11) mmol/L BUN 7 (7-18) mg/dL Creatinine 0.7 (0.55-1.02) mg/dL Est GFR (CKD-EPI 2020) 101.44 (mL/min/1.73m2) Glucose 187 H (74-106) mg/dL Calcium 8.5 (8.5-10.1) mg/dL Magnesium Total Bilirubin (0.2-1.0) mg/dL AST (15-37) U/L ALT (14-59) U/L Alkaline Phosphatase (46-116) U/L Troponin I Cancelled Cancelled (<or=51) ng/L Total Protein (6.4-8.2) g/dL Albumin (3.4-5.0) g/dL Lipase 05/13/24 05/13/24 Range/Units 09:02 09:00 WBC Cancelled 5.83 (4.4-10.8) 10^3/uL RBC Cancelled 4.49 (3.93-5.22) 10^6/uL Hgb Cancelled 14.6 (11.2-15.7) g/dL Hct Cancelled 41.5 (36.0-46.0) % MCV Cancelled 92 (80-95) fL MCH Cancelled 32.5 (27.0-33.0) pg MCHC Cancelled 35.2 (32.0-36.0) % RDW Cancelled 13.2 (11.7-14.6) % Plt Count Cancelled 304 (130-400) 10^3/uL MPV Cancelled 8.7 (8.0-11.0) fL Immature Gran % Cancelled 0.3 % Neutrophils % Cancelled 53.7 % Band Neutrophils % Cancelled Lymphocytes % Cancelled 28.6 % Atypical Lymphs % Cancelled Monocytes % Cancelled 15.4 % Eosinophils % Cancelled 1.7 % Basophils % Cancelled 0.3 % Metamyelocytes % Cancelled Myelocytes % Cancelled Promyelocytes % Cancelled Other Cells % Cancelled Nucleated RBC % Cancelled 0.0 (0.0-0.3) % Absolute Neutrophils Cancelled 3.12 (1.2-6.7) 10^3/uL Absolute Lymphocytes Cancelled 1.67 (1.2-3.4) 10^3/uL Absolute Monocytes Cancelled 0.90 H (0.1-0.8) 10^3/uL Absolute Eosinophils Cancelled 0.10 (0.0-0.7) 10^3/uL Absolute Basophils Cancelled 0.02 (0.0-0.2) 10^3/uL RBC Morphology Cancelled Polychromasia Cancelled Hypochromasia Cancelled Poikilocytosis Cancelled Basophilic Stippling Cancelled Anisocytosis Cancelled Microcytosis Cancelled Macrocytosis Cancelled Spherocytes Cancelled Tear Drop Cells Cancelled Ovalocytes Cancelled Stomatocytes Cancelled [place] Bodies Cancelled Michael Cells/Echinocytes Cancelled Acanthocytes (Spur) Cancelled Schistocytes Cancelled VBG pH (7.31-7.41) VBG pCO2 (41-51) mmHg VBG pO2 mmHg VBG HCO3 (23-28) mmol/L VBG Total CO2 (24-29) mmol/L VBG O2 Saturation % VBG Base Excess (-2-3) mmol/L Sodium Cancelled 136 (136-145) mmol/L Potassium Cancelled 2.9 L* (3.5-5.1) mmol/L Chloride Cancelled 94 L (98-107) mmol/L Carbon Dioxide Cancelled 34.2 H (21.0-32.0) mmol/L Anion Gap Cancelled 7.8 (3-11) mmol/L BUN Cancelled 5 L (7-18) mg/dL Creatinine Cancelled 0.7 (0.55-1.02) mg/dL Est GFR (CKD-EPI 2020) Cancelled 101.44 (mL/min/1.73m2) Glucose Cancelled 112 H (74-106) mg/dL Calcium Cancelled 9.3 (8.5-10.1) mg/dL Magnesium Cancelled Total Bilirubin Cancelled 0.32 (0.2-1.0) mg/dL AST Cancelled 31 (15-37) U/L ALT Cancelled 33 (14-59) U/L Alkaline Phosphatase Cancelled 87 (46-116) U/L Troponin I 18 (<or=51) ng/L Total Protein Cancelled 7.9 (6.4-8.2) g/dL Albumin Cancelled 3.9 (3.4-5.0) g/dL Lipase Cancelled Intake and Output - 24 Hour Total 05/13/24 08:34 thru 05/13/24 12:18 Intake Total 110 Balance 110 Weight 38.555 kg Intake: IV 110 Falls Risk Assessment History of Falls No History 05/13/24 08:47 Contributing Factors Medications 05/13/24 08:47 Ambulatory Aids Independent 05/13/24 08:47 Tubes/Lines None 05/13/24 08:47 Gait Evaluation No gait disturbance 05/13/24 08:47 Cognition No cognitive impairment 05/13/24 08:47 Fall Total Score 3 05/13/24 08:47 Level of Risk Standard/Low Risk 05/13/24 08:47 v v v v v v v v v Sending and/or Receiving Nurses: Please use comment section below to note any information pertinent to the patient hand-off not included above. Information / Comments: A&O x4, was in the [facility] for vacation w/ family, increase SOB with productive cough, pneumonia dx, failed ambulatory trail, dropped to 88%, at rest 95% on RA, given ceftriaxone, solumedrol, Potassium PO and IV in ER, azithromycin is running, 18G RAC, Unsteady due to fatigue with ambulation, does not use ambulatory aids, Report received from: Patricia Kenyon, RN [id number]
[2024-05-13] MEDS: valACYclovir 500 MG TAB 1000 MG PO (17:02)
--- NOTE | 2024-05-13 17:30 | HPE_ITS ---
Date of service: 05/13/24 Time of Service: 16:00 Assessment and Plan Assessment and plan (1) Community acquired pneumonia: Status: Acute Assessment and plan: desaturation to 88% with ambulation and tachycardia with lightheadedness Productive cough Continue ceftriaxone Continue azithromycin RT eval IS Acapella Legionella/strep pending Guaifenesin Benzonatate (2) Primary herpes simplex infection of lips: Status: Acute Assessment and plan: Start Valaxyclovir 1 gm daily x 5 d Start Penciclovir cream to affected area (3) Hypokalemia: Status: Acute Assessment and plan: 2.9 - repleted in ED Trend BMP (4) Cigarette smoker: Status: Chronic Assessment and plan: Offer nicotine replacement Encouraged to stop smoking - recommend out patient follow up with PCP History of Present Illness History of Present Illness Chief Complaint: Difficulty breasthing Narrative: This is a 58-year-old female with past medical history is significant for hypertension, tobacco use, migraine headaches, and diverticulosis who presents to the emergency department today with a complaint of viral symptoms, including a productive cough. She reports that she started feeling unwell approximately six days ago, with symptoms including subjective fever and chills, congestion, a sinus headache, ear pressure, sore throat, and a cough productive of mucus. Additionally, she has experienced mild nausea and vomiting, soft stools, and cold sores on her right upper lip and just above the lip. She denies any blood in her stool or emesis. The patient has not recorded any fevers during her illness but reports that her appetite is lower than usual. She has been able to tolerate oral intake without difficulty. She notes that her symptoms began while she was on vacation in the [facility] and that she returned home last night. In the ED patient is alert and oriented, in no acute distress. She has an occasional dry, hacking cough and end-expiratory wheezes heard throughout all lung sanchez. Dried lesions are noted on the right upper lip and just above the lip, without drainage, erythema, or vesicles. In the ED: * EKG: Reassuring, normal sinus rhythm with a rate of 96, no changes consistent with acute ischemia, and normal intervals. * Chest X-ray: No obvious infiltrates, though the radiologist notes increased markings in the lingular segment of the left lung, consistent with infiltrates. * CBC, VBG, and troponin: All reassuring. Viral panel negative. * Potassium: Hypokalemia (2.9), with the patient admitting to inconsistent use of her prescribed potassium supplementation over the past week. She was given both oral and IV potassium supplementation. * Duoneb nebulizer treatment, which resulted in some improvement of her symptoms. * Solu-Medrol for tight wheezes * Tylenol for discomfort. However, due to desaturation to 88% with ambulation and tachycardia with lightheadedness, it was decided that she would benefit from admission. She was started on IV Azithromycin and Ceftriaxone for the treatment of pneumonia. Patient is admitted to the medical floor for further testing and treatment. Patient is a full code. Review of Systems All systems reviewed & are unremarkable except as noted in HPI and below PFSH All Active Problems (Updated 05/13/24 @ 17:41 by Thelma Matthew NP) Hypokalemia (Acute) Primary herpes simplex infection of lips (Acute) Community acquired pneumonia (Acute) Essential hypertension (Chronic) Unintentional weight loss (Chronic) Cigarette smoker (Chronic) Migraine headache with aura (Chronic) Colon, diverticulosis (Chronic) Medical History Tubular adenoma of colon On 2016 and 2021 colonoscopies Hx of pancreatitis (~2016) Syncope From amlodipine Gastroesophageal reflux disease Dysfunctional uterine bleeding S/P hyst./ovaries remain Surgical History History of hand surgery left hand, tumor removed from finger S/P colonoscopy (~02/2022) S/P knee surgery S/P recurrent ventral herniorrhaphy (01/09/19) 01/19, ventrral/umbilical hernia required revision, chronic sensitivity around umbilicus H/O thumb surgery on right side only History of section History of umbilical hernia repair 2018 2013 Status post LEEP (loop electrosurgical excision procedure) of cervix Status post laparoscopic hysterectomy Cervix and ovaries remain Family History Mother Hypertension Father , 66 Colon cancer Liver cancer Brother No problems noted. Brother , 52 Rectal cancer Non-small cell lung cancer metastatic to liver Sister No problems noted. Son No problems noted. Daughter No problems noted. Daughter No problems noted. Maternal Grandfather No problems noted. Maternal Grandmother Brain cancer Paternal Grandfather Cancer Paternal Grandmother Cancer Social History Smoking/Tobacco Use Status: Current every day Tobacco Type: cigarettes Smoking packs per day: 0.5 Smoking cigarettes per day: 10.0 Years smoked: 40 Smoking pack-years: 20.00 Second Hand Exposure: Yes Smoking risk assessment performed?: Yes Alcohol Intake: current Alcohol Intake frequency: a few times a week Alcohol type: beer Drug use: Never Substance use type: does not use Details: pt states 4-6 drinks per day Housing: house Current gender identity: female Do you feel safe at home: Yes Do you feel safe in your relationship?: Yes Meds Allergies and Home Medications Allergies Allergy/AdvReac Type Severity Reaction Status Date / Time codeine AdvReac Severe GI UPSET Verified 05/13/24 08:38 oxycodone AdvReac Severe GI UPSET Verified 05/13/24 08:38 amlodipine AdvReac Mild edema Verified 05/13/24 08:38 Home Medications ?Medication ?Instructions ?Recorded ?Confirmed ?Type ibuprofen 800 mg tablet 800 mg PO PRN #90 tabs 11/26/20 05/13/24 Rx potassium chloride 20 mEq 20 meq PO DAILY #90 tabs 04/14/23 05/13/24 Rx tablet,extended release hydrochlorothiazide 25 mg tablet 25 mg PO DAILY #90 tabs 01/11/24 05/13/24 Rx losartan 100 mg tablet 100 mg PO DAILY #90 tabs 02/23/24 05/13/24 Rx Exam Const General: cooperative, anxious and ill appearing Nutritional Appearance: average body habitus Orientation: alert and oriented x3 HENMT Head: normal to inspection Ears: external ears normal General nose exam: external nose normal Mouth: oral mucosae normal and moist mucous membranes Neck Neck: normal visual inspection and no lymphadenopathy Resp Effort & Inspection: normal respiratory effort and able to speak in complete sentences Auscultation: wheezes (End expiratory wheezes throughout all lung sanchez) Cardio Rate: tachycardic Rhythm: regular rhythm GI Inspection: normal to inspection Palpation: soft, not firm, no guarding, not rigid and nontender Skin Lesions: lesion noted (R upper lip) Results Labs 05/13/24 09:00 05/13/24 11:35 Labs: Laboratory Results - last 24 hr 05/13/24 05/13/24 05/13/24 09:00 09:02 10:02 WBC 5.83 Cancelled RBC 4.49 Cancelled Hgb 14.6 Cancelled Hct 41.5 Cancelled MCV 92 Cancelled MCH 32.5 Cancelled MCHC 35.2 Cancelled RDW 13.2 Cancelled Plt Count 304 Cancelled MPV 8.7 Cancelled Immature Gran % 0.3 Cancelled Neutrophils % 53.7 Cancelled Band Neutrophils % Cancelled Lymphocytes % 28.6 Cancelled Atypical Lymphs % Cancelled Monocytes % 15.4 Cancelled Eosinophils % 1.7 Cancelled Basophils % 0.3 Cancelled Metamyelocytes % Cancelled Myelocytes % Cancelled Promyelocytes % Cancelled Other Cells % Cancelled Nucleated RBC % 0.0 Cancelled Absolute Neutrophils 3.12 Cancelled Absolute Lymphocytes 1.67 Cancelled Absolute Monocytes 0.90 H Cancelled Absolute Eosinophils 0.10 Cancelled Absolute Basophils 0.02 Cancelled RBC Morphology Cancelled Polychromasia Cancelled Hypochromasia Cancelled Poikilocytosis Cancelled Basophilic Stippling Cancelled Anisocytosis Cancelled Microcytosis Cancelled Macrocytosis Cancelled Spherocytes Cancelled Tear Drop Cells Cancelled Ovalocytes Cancelled Stomatocytes Cancelled [place] Bodies Cancelled Erica Cells/Echinocytes Cancelled Acanthocytes (Spur) Cancelled Schistocytes Cancelled VBG pH VBG pCO2 VBG pO2 VBG HCO3 VBG Total CO2 VBG O2 Saturation VBG Base Excess Sodium 136 Cancelled Potassium 2.9 L* Cancelled Chloride 94 L Cancelled Carbon Dioxide 34.2 H Cancelled Anion Gap 7.8 Cancelled BUN 5 L Cancelled Creatinine 0.7 Cancelled Est GFR (CKD-EPI 2020) 101.44 Cancelled Glucose 112 H Cancelled Calcium 9.3 Cancelled Magnesium Cancelled Total Bilirubin 0.32 Cancelled AST 31 Cancelled ALT 33 Cancelled Alkaline Phosphatase 87 Cancelled Troponin I 18 Cancelled Total Protein 7.9 Cancelled Albumin 3.9 Cancelled Lipase Cancelled 05/13/24 05/13/24 11:35 12:02 WBC RBC Hgb Hct MCV MCH MCHC RDW Plt Count MPV Immature Gran % Neutrophils % Band Neutrophils % Lymphocytes % Atypical Lymphs % Monocytes % Eosinophils % Basophils % Metamyelocytes % Myelocytes % Promyelocytes % Other Cells % Nucleated RBC % Absolute Neutrophils Absolute Lymphocytes Absolute Monocytes Absolute Eosinophils Absolute Basophils RBC Morphology Polychromasia Hypochromasia Poikilocytosis Basophilic Stippling Anisocytosis Microcytosis Macrocytosis Spherocytes Tear Drop Cells Ovalocytes Stomatocytes [place] Bodies Erica Cells/Echinocytes Acanthocytes (Spur) Schistocytes VBG pH 7.46 H VBG pCO2 46 VBG pO2 37 VBG HCO3 33 H VBG Total CO2 29 VBG O2 Saturation 72 VBG Base Excess 9 H Sodium 135 L Potassium 3.8 Chloride 96 L Carbon Dioxide 33.1 H Anion Gap 5.9 BUN 7 Creatinine 0.7 Est GFR (CKD-EPI 2020) 101.44 Glucose 187 H Calcium 8.5 Magnesium Total Bilirubin AST ALT Alkaline Phosphatase Troponin I Cancelled Total Protein Albumin Lipase Last Vital Signs Temp 37.0 C 05/13/24 15:42 Pulse 92 H 05/13/24 15:42 Resp 19 05/13/24 15:42 BP 116/68 05/13/24 15:42 Pulse Ox 96 05/13/24 15:42 PAWSS Have you Been Recently Intoxicated or Drunk Within the Last 30 days?: No Have you Ever Experienced Previous Episodes of Alcohol Withdrawal?: No Have you ever Experienced Withdrawal Seizures?: No Have you ever Experienced Delirium Tremens(DT)s?: No Have you ever undergone Alcohol Rehabilitation Treatment (i.e, inpt ot outpatient treatment programs)?: No Have you ever Experienced Blackouts?: No Have you ever Combined Alcohol with other Downers within the last 90 days?: No Have you ever Combined Alcohol with any other Substance of Abuse during the last 90 days?: No Positive Blood Alcohol level on Presentation? [PCS.BAL]: No Evidence of Increased Autonomic Activity (i.e. HR>120, tremor, sweating, agitation, nausea)?: No Result: 0 Time Spent Time spent with Patient: 40-54 minutes Time was spent: preparing to see the patient(eg.review tests), obtaining and/or reviewing separately otained hiistory, ordering medications,tests, procedures, referring, communicating with other health home care nurse, indepentently interpreting results, counseling the patient and care coordination
--- NOTE | 2024-05-13 18:30 | NUR.NOTE ---
Nursing Note: Patient ambulated to bathroom with RN, pt experiencing increased SOB w/ exertion requesting O2 supplement, O2 at 97% on RA 1L placed via NC.
--- NOTE | 2024-05-13 18:35 | NUR.NOTE ---
Nursing Note: RN went in and reassessed pt O2, 97% on 1L, pt no longer SOB at rest and O2 taken off. manufacturing production manager
[2024-05-13 19:53] LABS: MRSA PCR Negative (Negative)
[2024-05-13] MEDS: Normal Saline Flush 10 ML SYR IVP (20:14)
[2024-05-13] MEDS: guaiFENesin 600 MG TABCR 1200 MG PO (20:14)
[2024-05-14] VITALS (11 sets, daily range): BP systolic 120–131; BP diastolic 68–75; PULSE 74–101; RESP 5–24; TEMP 36.6–37.5; O2SAT 93–99
[2024-05-14] MEDS: Albuterol/Ipratropium 3 ML UPD VIAL UPD ×4 (04:04→22:50)
[2024-05-14] MEDS: Normal Saline Flush 10 ML SYR IVP ×3 (09:35→20:11)
[2024-05-14] MEDS: Losartan 50 MG TAB 100 MG PO (09:35)
[2024-05-14] MEDS: valACYclovir 1,000 MG TAB 1000 MG PO (09:36)
[2024-05-14] MEDS: hydroCHLOROthiazide 25 MG TAB PO (09:36)
[2024-05-14] MEDS: guaiFENesin 600 MG TABCR 1200 MG PO ×2 (09:36→20:11)
[2024-05-14] MEDS: Potassium Chloride 20 MEQ TABCR PO (09:36)
[2024-05-14] MEDS: Normal Saline 250 ML IV (11:11)
[2024-05-14] MEDS: cefTRIAXone 1 GM/50 ML BAG IVPB (12:30)
[2024-05-14] MEDS: Normal Saline 1,000 ML 150 ML IV ×2 (12:35→19:59)
[2024-05-14] MEDS: AZITHROMYCIN 500 MG in Normal Saline 250 ML 250 MG IVPB (14:08)
[2024-05-14] MEDS: Acetaminophen 325 MG TAB PO (15:35)
--- NOTE | 2024-05-14 17:08 | CHAPLAIN ---
Natali was resting in bed when I visited. She said she didn't need a ccnp when I tried to explain that I check in with everyone. She had a couple of minor complaints. A friend/family member was with her.
--- NOTE | 2024-05-14 17:34 | INITIAL_ITS ---
Date of service: 05/14/24 Time of Service: 16:00 Care Management Initial Assmt Initial Assessment Reason for Hospitalization: pneumonia Functional Status/Living Situation Patient Presentation: Edna presented to the ER yesterday with symptoms including subjective fever and chills, congestion, a sinus headache, ear pressure, sore throat, and a cough productive of mucus. She had been on a trip to the [facility], and several of her friends became ill as well. Edna was dx with pneumonia and was admitted for IV abx and pulmonary treatment. Edna was sitting up in the bed when CM met with her. She was pleasant and we had a good chat. She stated that she feels absolutely awful, but actually a bit better. 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: N 12/04/12 10:02 Date Asked 05/13/24 05/13/24 08:39 AD Date Reviewed COLST On File at [facility] COLST Date Scanned Code Status Resuscitation Status Full Code Insurance Coverage/Financial Issues Insurance: Medicaid Care Team Visit Care Team Role Provider Type Ana Duran NP Primary Care Provider NURSE PRACTITIONER Alysha Brady Emergency Provider NURSE PRACTITIONER Thelma Matthew NP Admit Provider [facility] STAFF PHYSICIAN Attending Provider Discharge Potential Discharge Needs: PCP F/U Appt Anticipated Barriers to Discharge: None Identified Patient/Family Education Needs: Review discharge instructions, discuss Ask Me Three Transportation: Private vehicle Plan: Anticipate that Natali will be discharged home with no new services. She will f/u with PCP and continue per her plan of care. She will transport home with her . CM will continue to follow. Social Determinants of Health Screening Social Determinants of Health last assessed: 05/14/24 Will the Patient Participate in the Screening?: Yes Do you worry about having a steady place to live?: no Problems where you live: no known problems In the past 12 months, have you had to go without electric, gas, oil or water in your home?: no Have you or anyone in your house had to go without enough food to eat?: no Has lack of transportation kept you from medical appointments or from doing things needed for daily living?: no Has anyone in your life made you feel unsafe or unsupported?: no How hard is it for you to pay for the very basics like food, housing, medical care, and heating? Would you say it is:: Not hard at all Do you want help finding or keeping work or a job?: I do not need or want help If for any reason you need help with day-to-day activities such as bathing, preparing meals, shopping, managing finances, etc., do you get the help you need?: I don?t need any help How often do you feel lonely or isolated from those around you?: Never Do you speak a language other than Scottish at home?: Yes Does the patient want assistance with any of the above?: No Health Related Social Needs Health related social needs: education (Z55.6) PFSH All Active Problems (Updated 05/13/24 @ 17:41 by Thelma Matthew NP) Hypokalemia (Acute) Primary herpes simplex infection of lips (Acute) Community acquired pneumonia (Acute) Essential hypertension (Chronic) Unintentional weight loss (Chronic) Cigarette smoker (Chronic) Migraine headache with aura (Chronic) Colon, diverticulosis (Chronic) Medical History Tubular adenoma of colon On 2016 and 2021 colonoscopies Hx of pancreatitis (~2016) Syncope From amlodipine Gastroesophageal reflux disease Dysfunctional uterine bleeding S/P hyst./ovaries remain Surgical History History of hand surgery left hand, tumor removed from finger S/P colonoscopy (~02/2022) S/P knee surgery S/P recurrent ventral herniorrhaphy (01/09/19) 01/19, ventrral/umbilical hernia required revision, chronic sensitivity around umbilicus H/O thumb surgery on right side only History of section History of umbilical hernia repair 2018 2013 Status post LEEP (loop electrosurgical excision procedure) of cervix Status post laparoscopic hysterectomy Cervix and ovaries remain Family History Mother Hypertension Father , 66 Colon cancer Liver cancer Brother No problems noted. Brother , 52 Rectal cancer Non-small cell lung cancer metastatic to liver Sister No problems noted. Son No problems noted. Daughter No problems noted. Daughter No problems noted. Maternal Grandfather No problems noted. Maternal Grandmother Brain cancer Paternal Grandfather Cancer Paternal Grandmother Cancer Social History Smoking/Tobacco Use Status: Current every day Tobacco Type: cigarettes Smoking packs per day: 0.5 Smoking cigarettes per day: 10.0 Years smoked: 40 Smoking pack-years: 20.00 Second Hand Exposure: Yes Smoking risk assessment performed?: Yes Alcohol Intake: current Alcohol Intake frequency: a few times a week Alcohol type: beer Drug use: Never Substance use type: does not use Details: pt states 4-6 drinks per day Housing: house Current gender identity: female Do you feel safe at home: Yes Do you feel safe in your relationship?: Yes Readmission Within the Past 30 Days Yes or No: No
[2024-05-14] MEDS: Benzonatate 100 MG CAP PO (20:11)
[2024-05-14] MEDS: Ketorolac 15 MG/ML VIAL IVP (20:11)
[2024-05-15] VITALS (12 sets, daily range): BP systolic 117–142; BP diastolic 53–68; PULSE 80–116; RESP 5–32; TEMP 36.9–37; O2SAT 93–99
[2024-05-15] MEDS: Normal Saline 1,000 ML 150 ML IV ×3 (02:51→17:41)
[2024-05-15] MEDS: Albuterol/Ipratropium 3 ML UPD VIAL UPD ×4 (04:46→21:49)
[2024-05-15 08:47] LABS: Legionella Ag Detection Urine Negative (Negative)
[2024-05-15] MEDS: Losartan 50 MG TAB 100 MG PO (09:32)
[2024-05-15] MEDS: Potassium Chloride 20 MEQ TABCR PO (09:33)
[2024-05-15] MEDS: Normal Saline Flush 10 ML SYR IVP ×2 (09:33→19:48)
[2024-05-15] MEDS: guaiFENesin 600 MG TABCR 1200 MG PO ×2 (09:33→19:47)
[2024-05-15] MEDS: predniSONE 20 MG TAB 40 MG PO (09:33)
[2024-05-15] MEDS: valACYclovir 1,000 MG TAB 1000 MG PO (09:33)
[2024-05-15] MEDS: hydroCHLOROthiazide 25 MG TAB PO (09:33)
[2024-05-15] MEDS: Ketorolac 15 MG/ML VIAL IVP ×2 (09:44→21:59)
--- NOTE | 2024-05-15 13:11 | CMPROGNOTE_ITS ---
Date of service: 05/15/24 Time of Service: 11:00 Care Management Progress Note Progress Note Text Progress Note Text: Natali was sitting up in the bed when CM met with her today. Her daughter was visiting. CM thought that Natali looked a bit more comfortable today, but Natali stated that she has taken a step backwards and is not feeling well at all. She had an updraft early this morning that started her coughing, and she doesn't feel that she has caught her breath since. RT is going to perform Chest PT today, and has also suggested outpatient PFT's for Natali. Discharge Potential Discharge Needs: PCP F/U Appt Anticipated Barriers to Discharge: None Identified Patient/Family Education Needs: Review discharge instructions, discuss Ask Me Three Transportation: Private vehicle Plan: Anticipate that Natali will be discharged home with no new services. She will f/u with PCP and continue per her plan of care. She will transport home with her . CM will continue to follow. Social Determinants of Health Screening Social Determinants of Health last assessed: 05/15/24 Will the Patient Participate in the Screening?: Yes Do you worry about having a steady place to live?: no Problems where you live: no known problems In the past 12 months, have you had to go without electric, gas, oil or water in your home?: no Have you or anyone in your house had to go without enough food to eat?: no Has lack of transportation kept you from medical appointments or from doing things needed for daily living?: no Has anyone in your life made you feel unsafe or unsupported?: no How hard is it for you to pay for the very basics like food, housing, medical care, and heating? Would you say it is:: Not hard at all Do you want help finding or keeping work or a job?: I do not need or want help If for any reason you need help with day-to-day activities such as bathing, preparing meals, shopping, managing finances, etc., do you get the help you need?: I don?t need any help How often do you feel lonely or isolated from those around you?: Never Do you speak a language other than Latvian at home?: Yes Does the patient want assistance with any of the above?: No Health Related Social Needs Health related social needs: education (Z55.6)
[2024-05-15] MEDS: cefTRIAXone 1 GM/50 ML BAG IVPB (13:36)
[2024-05-15] MEDS: Albuterol 2.5 MG/3 ML INH SOLN VIAL UPD (13:45)
[2024-05-15] MEDS: AZITHROMYCIN 500 MG in Normal Saline 250 ML 250 MG IVPB (14:24)
--- NOTE | 2024-05-15 21:12 | PGE_ITS ---
Date of Service Date of service: 05/15/24 Time of Service: 13:00 Assessment and Plan Assessment and plan (1) Community acquired pneumonia: Status: Acute Assessment and plan: desaturation to 88% with ambulation and tachycardia with lightheadedness has improved Productive cough Continue ceftriaxone Continue azithromycin RT has been doing IS Acapella Legionella/strep pending Guaifenesin Benzonatate (2) Primary herpes simplex infection of lips: Status: Acute Assessment and plan: Improved, lesions are smaller Continue Valaxyclovir 1 gm daily x 5 d Continue Penciclovir cream to affected area (3) Hypokalemia: Status: Acute Assessment and plan: 3.8 today --Trend BMP (4) Cigarette smoker: Status: Chronic Assessment and plan: Offer nicotine replacement Encouraged to stop smoking - recommend out patient follow up with PCP Subjective Subjective Patient reports: no new complaints, feels better, tolerating a regular diet, voiding w/o difficulty, bowel movement and afebrile; denies diarrhea or vomiting Interval history since last seen: Patient reports feeling better, although continues to have rib pain with coughing. She is acutely short of breath with any exertion. Exam Const General: cooperative, anxious and ill appearing Nutritional Appearance: average body habitus Orientation: alert and oriented x3 HENMT Head: normal to inspection Ears: external ears normal General nose exam: external nose normal Mouth: oral mucosae normal and moist mucous membranes Neck Neck: normal visual inspection and no lymphadenopathy Resp Effort & Inspection: normal respiratory effort and able to speak in complete sentences Auscultation: wheezes (End expiratory wheezes throughout all lung sanchez) Cardio Rate: tachycardic Rhythm: regular rhythm GI Inspection: normal to inspection Palpation: soft, not firm, no guarding, not rigid and nontender Skin Lesions: lesion noted (R upper lip) Objective Last Vital Signs Temp 36.9 C 05/15/24 15:59 Pulse 116 H 05/15/24 15:59 Resp 16 05/15/24 15:59 BP 142/63 H 05/15/24 15:59 Pulse Ox 96 05/15/24 15:59 Laboratory Results - last 24 hr 05/13/24 18:18 Urine Legionella Ag Negative PAWSS Have you Been Recently Intoxicated or Drunk Within the Last 30 days?: No Have you Ever Experienced Previous Episodes of Alcohol Withdrawal?: No Have you ever Experienced Withdrawal Seizures?: No Have you ever Experienced Delirium Tremens(DT)s?: No Have you ever undergone Alcohol Rehabilitation Treatment (i.e, inpt ot outpatient treatment programs)?: No Have you ever Experienced Blackouts?: No Have you ever Combined Alcohol with other Downers within the last 90 days?: No Have you ever Combined Alcohol with any other Substance of Abuse during the last 90 days?: No Positive Blood Alcohol level on Presentation? [PCS.BAL]: No Evidence of Increased Autonomic Activity (i.e. HR>120, tremor, sweating, agitation, nausea)?: No Result: 0 Time Spent with Patient Time Spent with Patient: 25-34 minutes Time was spent: preparing to see the patient(eg.review tests), ordering medications,tests, procedures, referring, communicating with other health care management coordinator, indepentently interpreting results, counseling the patient and care coordination
[2024-05-16] VITALS (12 sets, daily range): BP systolic 140–148; BP diastolic 61–78; PULSE 80–95; RESP 5–20; TEMP 37–37.5; O2SAT 94–98
[2024-05-16] MEDS: Normal Saline 1,000 ML 150 ML IV ×4 (00:24→22:18)
[2024-05-16] MEDS: Albuterol/Ipratropium 3 ML UPD VIAL UPD ×4 (03:41→21:48)
[2024-05-16] MEDS: Acetaminophen 325 MG TAB PO (03:52)
[2024-05-16 07:05] LABS: Abs Immature Grans 0.02 10^3/uL (0.0-0.06); Absolute Basophil Count 0.02 10^3/uL (0.0-0.2); Absolute Eosinophil Count 0.03 10^3/uL (0.0-0.7); Absolute Monocyte Count 0.72 10^3/uL (0.1-0.8); Absolute Neutrophil Count 4.57 10^3/uL (1.2-6.7); Basophils % 0.2 %; Eosinophils % 0.4 %; HCT 31.3 % (36.0-46.0); HGB 10.9 g/dL (11.2-15.7); Immature Grans % 0.2 %; Lymphocytes % 33.5 %; MCH 32.7 pg (27.0-33.0); MCHC 34.8 % (32.0-36.0); MCV 94 fL (80-95); MPV 8.7 fL (8.0-11.0); Monocytes % 8.9 %; Neutrophils % 56.8 %; Platelet Count 302 10^3/uL (130-400); RBC 3.33 10^6/uL (3.93-5.22); RDW 14.1 % (11.7-14.6); RDW-SD 49.1 fL; WBC 8.06 10^3/uL (4.4-10.8)
[2024-05-16 07:07] LABS: Anion Gap 8.4 mmol/L (3-11); BUN 6 mg/dL (7-18); CO2 25.6 mmol/L (21.0-32.0); CREATININE 0.6 mg/dL (0.55-1.02); Calcium 8.2 mg/dL (8.5-10.1); Chloride 109 mmol/L (98-107); Estimated GFR 105.28 (mL/min/1.73m2); Glucose 84 mg/dL (74-106); Magnesium 1.7 mg/dL (1.8-2.4); Potassium 3.1 mmol/L (3.5-5.1); Sodium 143 mmol/L (136-145)
[2024-05-16] MEDS: Potassium Chloride 20 MEQ TABCR PO (09:22)
[2024-05-16] MEDS: Losartan 50 MG TAB 100 MG PO (09:22)
[2024-05-16] MEDS: guaiFENesin 600 MG TABCR 1200 MG PO ×2 (09:22→19:43)
[2024-05-16] MEDS: predniSONE 20 MG TAB 40 MG PO (09:22)
[2024-05-16] MEDS: hydroCHLOROthiazide 25 MG TAB PO (09:22)
[2024-05-16] MEDS: valACYclovir 1,000 MG TAB 1000 MG PO (09:22)
[2024-05-16] MEDS: Normal Saline Flush 10 ML SYR IVP (09:23)
--- NOTE | 2024-05-16 10:32 | PDOC.CMPRO ---
Date of service: 05/16/24 Time of Service: 10:33 Care Management Progress Note Progress Note Text Progress Note Text: Natali was awake and lying in bed visiting with her daughter when CM met with her. She is being treated with IV ABX and steroids and continues to have a non productive cough which is being followed by PT. Pt denies concerns at this time. CM will follow. Discharge Potential Discharge Needs: PCP F/U Appt Anticipated Barriers to Discharge: Medical Status Patient/Family Education Needs: Review discharge instructions, discuss Ask Me Three Transportation: Private vehicle Plan: Anticipate that Natali will be discharged home with no new services. She will f/u with PCP and continue per her plan of care. She will transport home with her . CM will continue to follow. Social Determinants of Health Screening Social Determinants of Health last assessed: 05/16/24 Will the Patient Participate in the Screening?: Yes Do you worry about having a steady place to live?: no Problems where you live: no known problems In the past 12 months, have you had to go without electric, gas, oil or water in your home?: no Have you or anyone in your house had to go without enough food to eat?: no Has lack of transportation kept you from medical appointments or from doing things needed for daily living?: no Has anyone in your life made you feel unsafe or unsupported?: no How hard is it for you to pay for the very basics like food, housing, medical care, and heating? Would you say it is:: Not hard at all Do you want help finding or keeping work or a job?: I do not need or want help If for any reason you need help with day-to-day activities such as bathing, preparing meals, shopping, managing finances, etc., do you get the help you need?: I don?t need any help How often do you feel lonely or isolated from those around you?: Never Do you speak a language other than Macanese at home?: Yes Does the patient want assistance with any of the above?: No Health Related Social Needs Health related social needs: education (Z55.6)
[2024-05-16] MEDS: cefTRIAXone 1 GM/50 ML BAG IVPB (12:19)
[2024-05-16] MEDS: AZITHROMYCIN 500 MG in Normal Saline 250 ML 250 MG IVPB (14:15)
[2024-05-16 15:26] LABS: Streptococcus Pneumoniae Ag, U Negative (Negative)
[2024-05-16] MEDS: Potassium Chloride 20 MEQ TABCR 40 MEQ PO (17:11)
--- NOTE | 2024-05-16 19:29 | PGE_ITS ---
Date of Service Date of service: 05/16/24 Time of Service: 19:29 Assessment and Plan Assessment and plan (1) Community acquired pneumonia: Status: Acute Assessment and plan: desaturation with ambulation and tachycardia with lightheadedness has improved Productive cough Continue ceftriaxone Continue azithromycin RT has been doing IS Acapella Legionella/strep pending Guaifenesin Benzonatate (2) Primary herpes simplex infection of lips: Status: Acute Assessment and plan: Improved, lesions are smaller Continue Valaxyclovir 1 gm daily x 5 d Continue Penciclovir cream to affected area (3) Hypokalemia: Status: Acute Assessment and plan: 3.1 today -- repleted - Trend BMP (4) Cigarette smoker: Status: Chronic Assessment and plan: Offer nicotine replacement Encouraged to stop smoking - recommend out patient follow up with PCP Subjective Subjective Patient reports: no new complaints, feels better, tolerating liquids well, tolerating a regular diet, voiding w/o difficulty and afebrile; denies diarrhea, nausea or vomiting Interval history since last seen: Improved, however is still weak, and having difficulty breathing - discussed discharge if improved 05/17 - in agreement. Objective Last Vital Signs Temp 37.0 C 05/16/24 14:34 Pulse 87 05/16/24 16:05 Resp 16 05/16/24 14:34 BP 145/65 H 05/16/24 14:34 Pulse Ox 96 05/16/24 16:05 Laboratory Results - last 24 hr 05/13/24 05/16/24 18:18 06:40 WBC 8.06 RBC 3.33 L Hgb 10.9 L D Hct 31.3 L MCV 94 MCH 32.7 MCHC 34.8 RDW 14.1 Plt Count 302 MPV 8.7 Immature Gran % 0.2 Neutrophils % 56.8 Lymphocytes % 33.5 Monocytes % 8.9 Eosinophils % 0.4 Basophils % 0.2 Nucleated RBC % 0.0 Absolute Neutrophils 4.57 Absolute Lymphocytes 2.70 Absolute Monocytes 0.72 Absolute Eosinophils 0.03 Absolute Basophils 0.02 Sodium 143 Potassium 3.1 L Chloride 109 H Carbon Dioxide 25.6 Anion Gap 8.4 BUN 6 L Creatinine 0.6 Est GFR (CKD-EPI 2020) 105.28 Glucose 84 Calcium 8.2 L Magnesium 1.7 L Ur Strep pneumoniae Ag Negative PAWSS Have you Been Recently Intoxicated or Drunk Within the Last 30 days?: No Have you Ever Experienced Previous Episodes of Alcohol Withdrawal?: No Have you ever Experienced Withdrawal Seizures?: No Have you ever Experienced Delirium Tremens(DT)s?: No Have you ever undergone Alcohol Rehabilitation Treatment (i.e, inpt ot outpati ent treatment programs)?: No Have you ever Experienced Blackouts?: No Have you ever Combined Alcohol with other Downers within the last 90 days?: No Have you ever Combined Alcohol with any other Substance of Abuse during the last 90 days?: No Positive Blood Alcohol level on Presentation? [PCS.BAL]: No Evidence of Increased Autonomic Activity (i.e. HR>120, tremor, sweating, agitation, nausea)?: No Result: 0 Time Spent with Patient Time Spent with Patient: 25-34 minutes Time was spent: preparing to see the patient(eg.review tests), ordering medications,tests, procedures, referring, communicating with other health director critical care, indepentently interpreting results, counseling the patient and care coordination
[2024-05-16] MEDS: Ketorolac 15 MG/ML VIAL IVP (19:48)
[2024-05-17] VITALS (16 sets, daily range): BP systolic 143–151; BP diastolic 66–87; PULSE 75–109; RESP 3–20; TEMP 35.8–37.4; O2SAT 94–98
[2024-05-17] MEDS: Albuterol/Ipratropium 3 ML UPD VIAL UPD ×4 (03:40→22:24)
[2024-05-17] MEDS: Cetirizine 10 MG TAB PO (06:24)
[2024-05-17] MEDS: Famotidine 20 MG TAB PO (06:24)
[2024-05-17] MEDS: Albuterol 2.5 MG/3 ML INH SOLN VIAL UPD (06:26)
[2024-05-17 06:59] LABS: Abs Immature Grans 0.04 10^3/uL (0.0-0.06); Absolute Basophil Count 0.03 10^3/uL (0.0-0.2); Absolute Eosinophil Count 0.07 10^3/uL (0.0-0.7); Absolute Lymphocyte Count 2.97 10^3/uL (1.2-3.4); Absolute Monocyte Count 0.72 10^3/uL (0.1-0.8); Basophils % 0.4 %; Eosinophils % 0.8 %; HCT 33.2 % (36.0-46.0); HGB 11.5 g/dL (11.2-15.7); Immature Grans % 0.5 %; Lymphocytes % 35.2 %; MCH 32.3 pg (27.0-33.0); MCHC 34.6 % (32.0-36.0); MCV 93 fL (80-95); Monocytes % 8.5 %; Neutrophils % 54.6 %; Platelet Count 378 10^3/uL (130-400); RBC 3.56 10^6/uL (3.93-5.22); RDW 14.6 % (11.7-14.6); RDW-SD 50.3 fL; WBC 8.43 10^3/uL (4.4-10.8)
[2024-05-17 07:11] LABS: Anion Gap 8.5 mmol/L (3-11); BUN 7 mg/dL (7-18); CO2 24.5 mmol/L (21.0-32.0); CREATININE 0.6 mg/dL (0.55-1.02); Calcium 8.7 mg/dL (8.5-10.1); Chloride 109 mmol/L (98-107); Estimated GFR 105.28 (mL/min/1.73m2); Glucose 85 mg/dL (74-106); Magnesium 1.7 mg/dL (1.8-2.4); Potassium 3.7 mmol/L (3.5-5.1); Sodium 142 mmol/L (136-145)
[2024-05-17] MEDS: Potassium Chloride 20 MEQ TABCR 40 MEQ PO (08:28)
[2024-05-17] MEDS: predniSONE 20 MG TAB 40 MG PO (08:28)
[2024-05-17] MEDS: valACYclovir 1,000 MG TAB 1000 MG PO (08:28)
[2024-05-17] MEDS: guaiFENesin 600 MG TABCR 1200 MG PO ×2 (08:28→21:29)
[2024-05-17] MEDS: hydroCHLOROthiazide 25 MG TAB PO (08:28)
[2024-05-17] MEDS: Losartan 50 MG TAB 100 MG PO (08:29)
--- NOTE | 2024-05-17 08:59 | CMPROGNOTE_ITS ---
Date of service: 05/17/24 Time of Service: 08:59 Care Management Progress Note Progress Note Text Progress Note Text: Natali is being treated with IV ABX and steroids. She continues to have a cough and a scant amount of blood tinged sputum was noted by nursing during interdisciplinary rounds. Cultures are pending. She is off supplemental O2 and maintaining her sats, currently 98% on RA and is transitioning to PO meds. Pt denies concerns at this time. CM will follow. Discharge Potential Discharge Needs: PCP F/U Appt Anticipated Barriers to Discharge: Medical Status Patient/Family Education Needs: Review discharge instructions, discuss Ask Me Three Transportation: Private vehicle Plan: Anticipate that Natali will be discharged home with no new services. She will f/u with PCP and continue per her plan of care. She will transport home with her . CM will continue to follow. Social Determinants of Health Screening Social Determinants of Health last assessed: 05/17/24 Will the Patient Participate in the Screening?: Yes Do you worry about having a steady place to live?: no Problems where you live: no known problems In the past 12 months, have you had to go without electric, gas, oil or water in your home?: no Have you or anyone in your house had to go without enough food to eat?: no Has lack of transportation kept you from medical appointments or from doing things needed for daily living?: no Has anyone in your life made you feel unsafe or unsupported?: no How hard is it for you to pay for the very basics like food, housing, medical care, and heating? Would you say it is:: Not hard at all Do you want help finding or keeping work or a job?: I do not need or want help If for any reason you need help with day-to-day activities such as bathing, pre paring meals, shopping, managing finances, etc., do you get the help you need?: I don?t need any help How often do you feel lonely or isolated from those around you?: Never Do you speak a language other than Croatian at home?: Yes Does the patient want assistance with any of the above?: No Health Related Social Needs Health related social needs: education (Z55.6)
[2024-05-17] MEDS: Azithromycin 250 MG TAB 500 MG PO (11:10)
--- NOTE | 2024-05-17 17:13 | PGE_ITS ---
Date of Service Date of service: 05/17/24 Time of Service: 17:13 Assessment and Plan Assessment and plan (1) Community acquired pneumonia: Status: Acute Assessment and plan: No further desaturation desaturation with ambulation but tachycardia persist without complaints of lightheadedness improved overall Reduced productive cough and hemoptysis reported once On cefpodoxime and azithromycin oral as the patient lost her IV access RT has been doing percussion in the setting of this is that might have to stop Continue IS Acapella ordered but reevaluating in the setting of hemoptysis Legionella/strep negative Continue guaifenesin and benzonatate (2) Primary herpes simplex infection of lips: Status: Acute Assessment and plan: Improving On Valaxyclovir 1 gm daily for 5 days completed today Continue Penciclovir cream to affected area as needed (3) Hypokalemia: Status: Acute Assessment and plan: Resolved?BMP in a.m. (4) Cigarette smoker: Status: Chronic Assessment and plan: She was continued on NRT Promote smoking cessation with out patient follow up with PCP (5) Discharge planning issues: Status: Acute Assessment and plan: Physical therapy additional recommendations Discussed with Dr. Braxton Subjective Subjective Patient reports: no new complaints, tolerating liquids well, tolerating a regular diet, bowel movement and other; denies nausea or vomiting Interval history since last seen: Report coughing blood x 1 Exam Narrative Exam Narrative: Alert vented x 4, nonfocal, S1-S2 regular tachypneic with exercise without hypoxia on room air, scattered rhonchi, abdomen is non-distended, soft and non- tender, no CVA tenderness Objective Last Vital Signs Temp 35.8 C L 05/17/24 15:42 Pulse 92 H 05/17/24 15:42 Resp 16 05/17/24 15:42 BP 144/68 H 05/17/24 15:42 Pulse Ox 96 05/17/24 15:42 Laboratory Results - last 24 hr 05/17/24 06:46 WBC 8.43 RBC 3.56 L Hgb 11.5 Hct 33.2 L MCV 93 MCH 32.3 MCHC 34.6 RDW 14.6 Plt Count 378 MPV 9.0 Immature Gran % 0.5 Neutrophils % 54.6 Lymphocytes % 35.2 Monocytes % 8.5 Eosinophils % 0.8 Basophils % 0.4 Nucleated RBC % 0.0 Absolute Neutrophils 4.60 Absolute Lymphocytes 2.97 Absolute Monocytes 0.72 Absolute Eosinophils 0.07 Absolute Basophils 0.03 Sodium 142 Potassium 3.7 Chloride 109 H Carbon Dioxide 24.5 Anion Gap 8.5 BUN 7 Creatinine 0.6 Est GFR (CKD-EPI 2020) 105.28 Glucose 85 Calcium 8.7 Magnesium 1.7 L PAWSS Have you Been Recently Intoxicated or Drunk Within the Last 30 days?: No Have you Ever Experienced Previous Episodes of Alcohol Withdrawal?: No Have you ever Experienced Withdrawal Seizures?: No Have you ever Experienced Delirium Tremens(DT)s?: No Have you ever undergone Alcohol Rehabilitation Treatment (i.e, inpt ot outpatien t treatment programs)?: No Have you ever Experienced Blackouts?: No Have you ever Combined Alcohol with other Downers within the last 90 days?: No Have you ever Combined Alcohol with any other Substance of Abuse during the last 90 days?: No Positive Blood Alcohol level on Presentation? [PCS.BAL]: No Evidence of Increased Autonomic Activity (i.e. HR>120, tremor, sweating, agitation, nausea)?: No Result: 0 Time Spent with Patient Time Spent with Patient: >50 minutes Time was spent: preparing to see the patient(eg.review tests), obtaining and/or reviewing separately otained hiistory, ordering medications,tests, procedures, referring, communicating with other health field care manager, indepentently interpreting results, counseling the patient and care coordination
--- NOTE | 2024-05-17 17:24 | PHA.REVIEW2 ---
Pharmacy Admission Review Admission Clinical Review Admission Pharmacy Review: Hypokalemia (Acute) Primary herpes simplex infection of lips (Acute) Community acquired pneumonia (Acute) codeine Adverse Reaction (Severe, Verified 05/13/24 08:38) GI UPSET oxycodone Adverse Reaction (Severe, Verified 05/13/24 08:38) GI UPSET amlodipine Adverse Reaction (Mild, Verified 05/13/24 08:38) edema Resuscitation Status Full Code Height 5 ft 2 in Weight 85.3 kg Pharmacy Admission Review Renal Dosing Renal Dosing: BUN 7 mg/dL (7-18) 05/17/24 06:46 Creatinine 0.6 mg/dL (0.55-1.02) 05/17/24 06:46 Medications needing adjustments: Reviewed (CrCl 106 mL/min) List of meds needing interventions: Current medications are okay Anticoagulation Anticoagulation: Hgb 11.5 g/dL (11.2-15.7) 05/17/24 06:46 Hct 33.2 % (36.0-46.0) L 05/17/24 06:46 Plt Count 378 10^3/uL (130-400) 05/17/24 06:46 Creatinine 0.6 mg/dL (0.55-1.02) 05/17/24 06:46 DVT Prophylaxis: Reviewed (TEDs, Hgb increased from 10.9) Relevant Labs Relevant Labs: Sodium 142 mmol/L (136-145) 05/17/24 06:46 Potassium 3.7 mmol/L (3.5-5.1) 05/17/24 06:46 Chloride 109 mmol/L (98-107) H 05/17/24 06:46 Magnesium 1.7 mg/dL (1.8-2.4) L 05/17/24 06:46 Electrolytes, C-Reactive P, ESR: Reviewed (Mg 1.7 - order put in for 400mg PO daily) Cardiac Review Cardiac Review: Troponin I Cancelled 05/13/24 12:02 Blood Pressure 144/68 1542 Blood Pressure 149/74 1235 Blood Pressure 151/82 0853 Blood Pressure 150/87 0530 BP, HR, EF%: Reviewed (HR 92) List meds needing interventions: has order for HCTZ 25mg daily and losartan 100mg daily QTc Review QTc: Reviewed (421 from 05/13/24) IV to PO Switch IV Medications: Reviewed (ketorolac) Home Meds Home Med List reviewed: Reviewed Current Meds Current Medication Order Review: Intervened Comments: Changed ibuprofen order to start on 05/19 after PRN ketorolac order is completed due to interaction / duplicate therapy Pharmacy Antibiotic Review Relevant Labs: WBC 8.43 10^3/uL (4.4-10.8) 05/17/24 06:46 Temperature 35.8 C Temperature 36.9 C Temperature 36.5 C Temperature 37.4 C Microbiology 05/13/24 18:50 Blood Culture - Preliminary Blood NO GROWTH 72 HOURS 05/13/24 18:40 Blood Culture - Preliminary Blood NO GROWTH 72 HOURS Pharmacy Antibiotic Activity: C/S review and Reviewed, no change Comments: Patient is on azithromycin PO and cefpodoxime, day 4 (total), for CAP. Patient was switched from IV to PO today.
[2024-05-17] MEDS: Magnesium Oxide 400 MG TAB PO ×2 (17:37→21:29)
[2024-05-17] MEDS: Cefpodoxime 200 MG TAB PO (21:29)
[2024-05-18] MEDS: Albuterol 2.5 MG/3 ML INH SOLN VIAL UPD (06:39)
[2024-05-18 06:44] VITALS: PULSE 74; RESP 18; RESP 9; O2SAT 98
[2024-05-18 07:43] VITALS: BP 143/80; PULSE 99; RESP 16; TEMP 36.5; O2SAT 93
[2024-05-18] MEDS: Cefpodoxime 200 MG TAB PO (07:58)
[2024-05-18] MEDS: Losartan 50 MG TAB 100 MG PO (07:59)
[2024-05-18] MEDS: predniSONE 20 MG TAB 40 MG PO (07:59)
[2024-05-18] MEDS: Potassium Chloride 20 MEQ TABCR 40 MEQ PO (07:59)
[2024-05-18] MEDS: guaiFENesin 600 MG TABCR 1200 MG PO (07:59)
[2024-05-18] MEDS: Magnesium Oxide 400 MG TAB PO (07:59)
[2024-05-18] MEDS: hydroCHLOROthiazide 25 MG TAB PO (07:59)
--- NOTE | 2024-05-18 10:20 | IN_ITS ---
PT Notes Visit Reasons: Community Acquired Pneumonia Inpatient Physical Therapy Evaluation Date: 05/18/24 Referring Doctor: Sania Francois NP PT Orders: PT CONSULT: safety consultation for d/c Precautions: fall, standard Patient Profile/Admitting Diagnosis: Patient is a 58 year old female with community acquired pneumonia, with PT orders for safety consult for d/c planning. Social History/Home Situation: Lives in a private home with her partner. Suppor tive family, who are present during consultation. Retired [employer] flatbed truck driver, now cleaning homes for a living. Active and independent at baseline. Equipment Owned/DME: none Subjective: Natali states that she is anxious to return home. She continues to feel weak. Would like to walk without a walker, but admits that her partner will feel more comfortable if she were to use one. Objective: General Observation: Sitting at EOB talking with CM at initiation of session. No lines. Mental Status: A&Ox3 Vital Signs: SaO2 96% at rest, HR 108. With ambulation, she remains <115 HR throughout, SaO2 94% or greater. ROM: Right Upper Extremity: WFL, although slow, cautious movements due to soreness throughout arm from IV Left Upper Extremity: WFL Right Lower Extremity: WFL Left Lower Extremity: WFL Strength: Right Upper Extremity: 3/5 or greater for all motions Left Upper Extremity: 3/5 or greater for all motions Right Lower Extremity: Hip flexion 3+/5. Quads 3+/5. Ankle DF 4/5. Demonstrates significant functional weakness, with tremulous LEs upon standing. Left Lower Extremity: Hip flexion 3+/5. Quads 3+/5. Ankle DF 4/5. Bed Mobility/Transfers: supine-sit: independent sit-supine: independent sit-stand: SBA stand-sit: SBA Gait: Ambulates 20' without AD, reaching for leone, min A throughout. Demonstrates slow, cautious gait and path deviation. Transition to use of FWW, with ability to ambulate 150' with slow pace, SBA only, markedly improved safety. Balance: Static Sitting: normal Dynamic Sitting: normal Static Standing: good Dynamic Standing: fair Special Tests: Mobility Limitations Standardized Measure [facility] AM-PAC 6 clicks Basic Mobility Inpatient Short Form: Raw Score: 20 Standardized Score: 47.67 CMS Score: 36% impairment 4-Position Balance Test: 2/4 Small RON: 10 seconds Partial Tandem: 10 seconds Full Tandem: 0 seconds without support Single Leg Stance: 0 seconds Informed Consent/Education: Patient instructed in purpose of PT consult and plan of care. Treatment: Initial Evaluation (77911) Therapeutic Activities ([id number]): Instruction in safe transfers Orientation to Maira/RPE Scale, with goal of maintaining work of breathing <5/10 during ambulation Instructed in pursed lip breathing during ambulation Issued and fitted with FWW. Oriented to safe use and transfer technique Therapeutic Exercise (60662): Ambulation 150' x 1 with FWW and SBA. Cues for pacing throughout. Ambulation 20'x2 with FWW, SBA small RON standing 20 seconds with CGA tandem standing 30 seconds with min A Assessment: Patient is a 58 year old female referred to physical therapy services for safety consultation for discharge planning. She has been in acute care for management of community acquired pneumonia in the presence of continued smoking. She presents with significant weakness and diminished activity tolerance, but with good understanding of pacing and safety. Was receptive to safety considerations and recommendation of use of FWW as she builds strength. Her AM-PAC scores are supportive for return to community, with recommendation for outpatient PT for continued strengthening, balance retraining and cardiovascular retraining. She currently demonstrates the following impairment level findings: 1. decreased balance 2. decreased LE strength 3. decreased activity tolerance 4. COREA without oxygen desaturation Impairments are contributing to the following functional limitations: 1. Unable to ambulate household distances without AD 2. Unable to ambulate community distances 3. increased risk for falls 4. COREA with short distance ambulation Patient is assessed as Low 55581 complexity based on the following: History: As above Examination: As above Presentation: stable Decision Making: low complexity Plan of Care/Treatment Plan: No further PT in acute care setting. Recommend outpatient PT as outlined below. Requires FWW for safe ambulation; walker issued and fitted today. DISCHARGE RECOMMENDATIONS: Home with outpatient PT and consideration of Pulmonary Rehab once strength is improved. FWW for all ambulation. TREATMENT CODE/TIME: [id number] ([id number], [id number]) Megha Emanuel, PT, DPT [facility] All Active Problems (Updated 05/17/24 @ 17:30 by Sania Francois APRN) Discharge planning issues (Acute) Hypokalemia (Acute) Primary herpes simplex infection of lips (Acute) Community acquired pneumonia (Acute) Essential hypertension (Chronic) Unintentional weight loss (Chronic) Cigarette smoker (Chronic) Migraine headache with aura (Chronic) Colon, diverticulosis (Chronic) Medical History Tubular adenoma of colon On 2016 and 2021 colonoscopies Hx of pancreatitis (~2016) Syncope From amlodipine Gastroesophageal reflux disease Dysfunctional uterine bleeding S/P hyst./ovaries remain Surgical History History of hand surgery left hand, tumor removed from finger S/P colonoscopy (~02/2022) S/P knee surgery S/P recurrent ventral herniorrhaphy (01/09/19) 01/19, ventrral/umbilical hernia required revision, chronic sensitivity around umbilicus H/O thumb surgery on right side only History of section History of umbilical hernia repair 2018 2013 Status post LEEP (loop electrosurgical excision procedure) of cervix Status post laparoscopic hysterectomy Cervix and ovaries remain
[2024-05-18] MEDS: Azithromycin 250 MG TAB 500 MG PO (10:42)
[2024-05-18 11:09] VITALS: BP 127/62; PULSE 86; RESP 16; TEMP 36.8; O2SAT 96
[2024-05-18 11:10] VITALS: RESP 5; RESP 9; O2SAT 96
[2024-05-18] MEDS: Albuterol/Ipratropium 3 ML UPD VIAL UPD (11:10)
[2024-05-18] MEDS: Budesonide/Formoterol 160/4.5 6 GM 60 PUFF INH IH (11:43)
--- NOTE | 2024-05-18 11:58 | W.PM.DS.N ---
Date of service: 05/18/24 Time of Service: 09:30 DS: Diagnosis Discharge Diagnosis (1) Community acquired pneumonia: Status: Acute (2) Primary herpes simplex infection of lips: Status: Acute (3) Hypokalemia: Status: Acute (4) Cigarette smoker: Status: Chronic (5) Discharge planning issues: Status: Acute Discharge Plan Disposition Patient Disposition: Home Condition: Improving Discharge Details Reason For Visit: Community Acquired Pneumonia Admit Date/Time: 05/13/24 13:03 Admit Provider: Thelma Matthew Attending Provider: Thelma Matthew Primary Care Provider: [facility] Hospital Course: This 58 years old female patient with past medical history significant for hypertension, daily EtOH intake, 50-fcrj-hawj smoking, migraine headache and diverticulosis presented to the ED at [facility] on 05/13/2024 for evaluation of upper respiratory viral symptoms including a productive cough. The patient mentions starting feeling unwell 6-day prior to presentation with symptoms including subjective fevers, chills, congestion, sinus headache, ear pressure, sore throat and a cough productive of mucus as well as mild nausea vomiting, soft stool in school sores on her right upper lip and just above the lip. At the time the patient denied any hematochezia or hematemesis or hemoptysis and no genitourinary complaints. The patient mention having recently traveled from [facility] [place] were many guests at the resorts develop gastro intestinal symptoms. On arrival the patient was hypoxic and oxygen supplementation was provided. In the ED was significant for a chest x-ray with increasing marking in the lingular segment of the left lung consistent with infiltrates. CBC, VBG and troponin were unremarkable viral panel was negative. Potassium was 2.9 and the patient received supplementation. The patient was treated in the ED with DuoNeb nebulizer, Solu-Medrol and Tylenol for discomfort. IV antibiotics were initiated with azithromycin and ceftriaxone. The patient was admitted to the hospitalist service on the surgical medical floor with telemetry for evaluation and management of currently acquired pneumonia, presumptive COPD exacerbation, hypokalemia and hypomagnesemia. During the stay, the patient continued to improve but despite not requiring oxygen supplementation to maintain saturation she was still tachypneic with little efforts. The patient continued to receive oral prednisone and scheduled nebulizer treatment. Telemetry remained in the low sinus tachycardia to most of the time sinus all rhythm. Will check the chart received aggressive pulmonary toilet. The patient reported 1 episode of hemoptysis. Inhaled corticosteroid/LABA were initiated status post RT consult. The patient will also benefit from pulmonary rehab at discharge when she will be stronger; physical therapy also recommended outpatient physical therapy. A pulmonology referral was completed as the patient never had pulmonary function test to officially diagnose COPD and might also benefit from low-dose computed tomography due to her smoking status. The patient mentioned not having any cravings for cigarettes during her stay without replacement therapy was ordered as craving may occur once respiratory status has improved. The patient will need to follow-up with the primary care practitioner within 7 days of discharge, the patient would benefit from follow-up BMP. The patient will be discharged on oral antibiotics, probiotics, Mucinex and benzonatate, a long taper of prednisone, DuoNebs and budesonide/formoterol inhaler. Discussed with Dr. Braxton Home Meds and New Rx's Prescriptions: New ipratropium-albuterol 0.5 mg-3 mg(2.5 mg base)/3 mL Solution For Nebulization 3 ml UPD Q6H Qty: 90 0RF azithromycin 250 mg Tablet 500 mg PO 1000 Qty: 6 0RF benzonatate 100 mg Capsule 100 mg PO TID PRN PRN (Reason: Cough) Qty: 90 0RF cefpodoxime 200 mg Tablet 200 mg PO BID Qty: 6 0RF guaifenesin [Mucus Relief ER] 600 mg Tablet Extended Release 12hr 1,200 mg PO BID Qty: 60 0RF magnesium oxide 400 mg (241.3 mg magnesium) Tablet 400 mg PO BID Qty: 30 0RF prednisone 20 mg Tablet 40 mg PO DAILY Qty: 18 0RF Rx Instructions: Take 40 mg for 5 days take 30 mg for 3 days take 20 mg for 3 days then stop Bio-K plus 50 billion cell capsule,delayed release(DR/EC) 1 cap PO DAILY Qty: 7 0RF Rx Instructions: Take 3 hours apart from antibiotics budesonide-formoterol [Symbicort] 80-4.5 mcg/actuation HFA aerosol inhaler 2 puff inhalation BID Qty: 10.2 0RF nicotine 21 mg/24 hr patch 24 hour 1 patch transdermal DAILY Qty: 28 0RF penciclovir 1 % Cream 1 applic topical Q2H WHILE AWAKE Qty: 5 0RF Continued potassium chloride 20 mEq tablet extended release 20 meq PO DAILY Qty: 90 3RF ibuprofen 800 mg tablet 800 mg PO PRN Qty: 90 1RF losartan 100 mg tablet 100 mg PO DAILY Qty: 90 3RF hydrochlorothiazide 25 mg tablet 25 mg PO DAILY Qty: 90 3RF Discharge Instructions Instructions: Community-Acquired Pneumonia, Adult (DC) Stand Alone Forms: Nursing Discharge Form Referrals: Respiratory Therapy [Provider Group] (Referral for pulmonary rehabilitation, please.) Ana Duran NP [Primary Care Provider] - (Follow-up within 7 days of discharge please. Please call your PCP office on Monday to make a follow up appointment within 7 days.) Anna Mosqueda PA [PH[employer]ICIANS [employer]ER] - (History of 48-lrrf-fmgb smoker, no official PFT; deemed to have COPD during ED visit on 05/13/2024 and admitted with COPD exacerbation and pneumonia. Referral has been sent.) LONI Sanders [OTHER] - (With Huma Ernst for OPT PT) Activity:: Activity as Tolerated Equipment/Supplies:: Walker Diet:: Heart healthy Discharge Orders Discharge Orders: Discharge Order (Routine); Ordered 05/18/24 Ordered By: Sania Francois DS: Summary Time Spent with Patient providing and/or coordinating discharge services: Greater than 30 minutes Status at Discharge Functional status at discharge: uses cane/walker Overall status at discharge: patient is progressing back to baseline Mental Status: mental status grossly normal Speech and Movement: speech and movement normal Mood: congruent mood Affect: normal affect Quality:SDOH Health Related Social Needs: Health related social needs education (Z55.6) Exam Narrative Exam Narrative: Alert vented x 4, nonfocal, S1-S2 regular tachypneic with ambulation or speech without hypoxia on room air, scattered rhonchi- slight end exp. wheezing , abdomen is non-distended, soft and non-tender, no CVA tenderness Psych Mental Status: mental status grossly normal Speech and Movement: speech and movement normal Mood: congruent mood Affect: normal affect DS: Data Vitals/I&O Vitals and I&O: Vital Signs Temperature 36.8 C 05/18/24 11:09 Temperature Source Temporal Artery Scan 05/18/24 11:09 Pulse 86 05/18/24 11:09 Pulse Rhythm Regular 05/13/24 14:19 Pulse 86 05/13/24 13:50 Respiratory Rate 16 05/18/24 11:09 Respiratory Effort Short of Breath 05/13/24 14:19 Respiratory Depth Normal 05/13/24 14:19 Respiratory Pattern Normal 05/13/24 14:19 Blood Pressure 127/62 05/18/24 11:09 Blood Pressure Mean 106 05/13/24 12:01 Pulse Oximetry 96 05/18/24 11:10 Oxygen Delivery Method Room Air 05/18/24 11:10 Oxygen Flow Rate 0 05/18/24 11:10 Pain Level 0 05/18/24 11:09 Comment pt requested to be left alone for 3 am vitals 05/18/24 03:24 Intake & Output 05/17/24 05/17/24 05/18/24 11:59 23:59 11:59 Intake Total 440 / 1440 1000 / 1440 Output Total 150 / 450 300 / 450 Balance 290 / 990 700 / 990 Intake: IV 1000 / 1000 Oral 440 / 440 Output: Urine 150 / 450 300 / 450 Other: Urine Color Yellow Yellow Yellow Urine Appearance Clear Clear Clear Urine Odor Normal Normal Normal Comment pt voided in toilet Data Completed and Pending Labs on day of discharge: Preliminary micro results at discharge 05/13/24 18:50 Blood Culture - Preliminary Blood NO GROWTH 96 HOURS 05/13/24 18:40 Blood Culture - Preliminary Blood NO GROWTH 96 HOURS PFSH All Active Problems (Updated 05/18/24 @ 12:20 by Sania Francois APRN) Discharge planning issues (Acute) Hypokalemia (Acute) Primary herpes simplex infection of lips (Acute) Community acquired pneumonia (Acute) Essential hypertension (Chronic) Unintentional weight loss (Chronic) Cigarette smoker (Chronic) Migraine headache with aura (Chronic) Colon, diverticulosis (Chronic) Medical History Tubular adenoma of colon On 2016 and 2021 colonoscopies Hx of pancreatitis (~2016) Syncope From amlodipine Gastroesophageal reflux disease Dysfunctional uterine bleeding S/P hyst./ovaries remain Surgical History History of hand surgery left hand, tumor removed from finger S/P colonoscopy (~02/2022) S/P knee surgery S/P recurrent ventral herniorrhaphy (01/09/19) 01/19, ventrral/umbilical hernia required revision, chronic sensitivity around umbilicus H/O thumb surgery on right side only History of section History of umbilical hernia repair 2018 2013 Status post LEEP (loop electrosurgical excision procedure) of cervix Status post laparoscopic hysterectomy Cervix and ovaries remain Family History Mother Hypertension Father , 66 Colon cancer Liver cancer Brother No problems noted. Brother , 52 Rectal cancer Non-small cell lung cancer metastatic to liver Sister No problems noted. Son No problems noted. Daughter No problems noted. Daughter No problems noted. Maternal Grandfather No problems noted. Maternal Grandmother Brain cancer Paternal Grandfather Cancer Paternal Grandmother Cancer Social History Smoking/Tobacco Use Status: Current every day Tobacco Type: cigarettes Smoking packs per day: 0.5 Smoking cigarettes per day: 10.0 Years smoked: 40 Smoking pack-years: 20.00 Second Hand Exposure: Yes Smoking risk assessment performed?: Yes Alcohol Intake: current Alcohol Intake frequency: a few times a week Alcohol type: beer Drug use: Never Substance use type: does not use Details: pt states 4-6 drinks per day Housing: house Current gender identity: female Do you feel safe at home: Yes Do you feel safe in your relationship?: Yes Time Spent with Patient Time Spent with Patient: 70-84 minutes4 Time was spent: preparing to see the patient(eg.review tests), obtaining and/or reviewing separately otained hiistory, ordering medications,tests, procedures, referring, communicating with other health home care provider, indepentently interpreting results, counseling the patient and care coordination
--- NOTE | 2024-05-18 12:31 | RESPIRATORY ---
Patient set up with home nebulizer through [employer]. Machine explained to patient prior to discharge. MD notified.
--- NOTE | 2024-05-18 15:22 | PDOC.CMDIS ---
Date of service: 05/18/24 Time of Service: 14:15 LACE Index Scoring Tool Questions: Length of Stay (in days): 4 - 6 Was the patient admitted via the E.D.?: Yes E.D. Visits: 1 Answers: Total Score: 8 Risk of Readmission: Low Risk Care Management Discharge Plan Reason for Hospitalization: pneumonia Discharge Plan: Natali was discharged home today with referrals for pulmonology and also outpatient PT. She will f/u with her PCP who was encouraged to refer Natali to respiratory therapy. She was started on an inhaler, and will also be receiving a nebulizer machine as set up by RT here at [facility]. Natali feels very well supported at home. She will transport via private vehicle and continue per her plan of care. Patient/Family Education Needs: review of discharge instructions, activity, limitations and discuss ask me 3. SDOH Health Related Social Needs: Health related social needs education (Z55.6)
--- NOTE | 2024-05-27 22:00 | PGE_ITS ---
Date of Service Date of service: 05/14/24 Time of Service: 13:00 Assessment and Plan Assessment and plan (1) Community acquired pneumonia: Status: Acute Assessment and plan: desaturation to 88% with ambulation and tachycardia with lightheadedness has improved Productive cough Continue ceftriaxone Continue azithromycin RT has been doing IS Acapella Legionella/strep pending Guaifenesin Benzonatate (2) Primary herpes simplex infection of lips: Assessment and plan: Improved, lesions are smaller Continue Valaxyclovir 1 gm daily x 5 d Continue Penciclovir cream to affected area (3) Hypokalemia: Status: Resolved Assessment and plan: 3.8 today --Trend BMP (4) Cigarette smoker: Status: Chronic Assessment and plan: Offer nicotine replacement Encouraged to stop smoking - recommend out patient follow up with PCP Subjective Subjective Patient reports: no new complaints, tolerating liquids well, tolerating a regular diet, bowel movement and other; denies nausea or vomiting Exam Const General: cooperative, anxious and ill appearing Nutritional Appearance: average body habitus Orientation: alert and oriented x3 HENMT Head: normal to inspection Ears: external ears normal General nose exam: external nose normal Mouth: oral mucosae normal and moist mucous membranes Neck Neck: normal visual inspection and no lymphadenopathy Resp Effort & Inspection: normal respiratory effort and able to speak in complete sentences Auscultation: wheezes (End expiratory wheezes throughout all lung sanchez) Cardio Rate: tachycardic Rhythm: regular rhythm GI Inspection: normal to inspection Palpation: soft, not firm, no guarding, not rigid and nontender Skin Lesions: lesion noted (R upper lip) Objective Last Vital Signs Temp 36.8 C 05/18/24 11:09 Pulse 86 05/18/24 11:09 Resp 16 05/18/24 11:09 BP 127/62 05/18/24 11:09 Pulse Ox 96 05/18/24 11:10 PAWSS Have you Been Recently Intoxicated or Drunk Within the Last 30 days?: No Have you Ever Experienced Previous Episodes of Alcohol Withdrawal?: No Have you ever Experienced Withdrawal Seizures?: No Have you ever Experienced Delirium Tremens(DT)s?: No Have you ever undergone Alcohol Rehabilitation Treatment (i.e, inpt ot outpatient treatment programs)?: No Have you ever Experienced Blackouts?: No Have you ever Combined Alcohol with other Downers within the last 90 days?: No Have you ever Combined Alcohol with any other Substance of Abuse during the last 90 days?: No Positive Blood Alcohol level on Presentation? [PCS.BAL]: No Evidence of Increased Autonomic Activity (i.e. HR>120, tremor, sweating, agitation, nausea)?: No Result: 0 Time Spent with Patient Time Spent with Patient: 25-34 minutes Time was spent: preparing to see the patient(eg.review tests), ordering medications,tests, procedures, referring, communicating with other health managed care liaison, indepentently interpreting results, counseling the patient and care coordination
== END 2024-05-18 14:24 | disposition home or self-care (01) | DRG 190 ==
LOC: ER 08:39 → MS 14:16
PROVIDERS: Admitting Provider Nurse Practitioner Family; Emergency Provider Nurse Practitioner Family; PCP Nurse Practitioner Family; Responsible Provider Nurse Practitioner Acute Care; Visit Provider Nurse Practitioner Family
DX: J44.0 Chronic obstructive pulmonary disease with (acute) lower respiratory infection (principal); J18.9 Pneumonia, unspecified organism; R04.2 Hemoptysis; Z68.1 Body mass index [BMI] 19.9 or less, adult; J44.1 Chronic obstructive pulmonary disease with (acute) exacerbation; B00.1 Herpesviral vesicular dermatitis; E87.6 Hypokalemia; F17.210 Nicotine dependence, cigarettes, uncomplicated; I10 Essential (primary) hypertension; K57.30 Diverticulosis of large intestine without perforation or abscess without bleeding; G43.909 Migraine, unspecified, not intractable, without status migrainosus; K21.9 Gastro-esophageal reflux disease without esophagitis; R09.02 Hypoxemia; E83.42 Hypomagnesemia; R63.4 Abnormal weight loss
CPT/HCPCS: 00123; 36410; 36415; 80048; 80053; 82805; 83690; 87040; 87449; 87641; 93005; 94640; 94669; 94761; 96365; 96367; 96375; 97110; 97161; 97530; 99285; J3490; 71046; 83735; 84484; 85025; 87899; 93010; 94667; 94760; 99222; 99232; 99233; 99239; J0456; J0696; J1885; J2919; J3480; J7512; J7613; J7620

== ENCOUNTER 2024-05-29 03:20 | Outpatient (CLI) | payer MEDICAID, SELFPAY ==
[2024-05-29 12:08] LABS: Abs Immature Grans 0.11 10^3/uL (0.0-0.06); Absolute Eosinophil Count 0.03 10^3/uL (0.0-0.7); Absolute Lymphocyte Count 1.47 10^3/uL (1.2-3.4); Basophils % 0.4 %; Eosinophils % 0.2 %; HCT 38.5 % (36.0-46.0); HGB 13.1 g/dL (11.2-15.7); Immature Grans % 0.8 %; Lymphocytes % 10.4 %; MCH 32.4 pg (27.0-33.0); MCV 95 fL (80-95); MPV 8.2 fL (8.0-11.0); Monocytes % 2.1 %; Neutrophils % 86.1 %; Platelet Count 518 10^3/uL (130-400); RBC 4.04 10^6/uL (3.93-5.22); RDW 14.5 % (11.7-14.6); RDW-SD 50.6 fL; WBC 14.14 10^3/uL (4.4-10.8)
[2024-05-29 12:09] LABS: Absolute Basophil Count 0.06 10^3/uL (0.0-0.2); Absolute Neutrophil Count 12.17 10^3/uL (1.2-6.7)
[2024-05-29 12:32] LABS: Anion Gap 6.4 mmol/L (3-11); BUN 22 mg/dL (7-18); CO2 33.6 mmol/L (21.0-32.0); CREATININE 0.8 mg/dL (0.55-1.02); Calcium 9.9 mg/dL (8.5-10.1); Chloride 101 mmol/L (98-107); Estimated GFR 86.42 (mL/min/1.73m2); Glucose 136 mg/dL (74-106); Magnesium 2.2 mg/dL (1.8-2.4); Potassium 4.1 mmol/L (3.5-5.1); Sodium 141 mmol/L (136-145)
== END 2024-05-29 03:21 | disposition home or self-care (01) ==
LOC: LBO 03:20
PROVIDERS: PCP Nurse Practitioner Family; Visit Provider Nurse Practitioner Family
DX: J18.9 Pneumonia, unspecified organism (principal)
CPT/HCPCS: 36415; 80048; 83735; 85025

== ENCOUNTER 2024-06-26 08:30 | Outpatient (CLI) | payer MEDICAID, SELFPAY ==
[2024-06-26 09:15] LABS: Abs Immature Grans 0.02 10^3/uL (0.0-0.06); Absolute Basophil Count 0.05 10^3/uL (0.0-0.2); Absolute Eosinophil Count 0.12 10^3/uL (0.0-0.7); Absolute Lymphocyte Count 1.95 10^3/uL (1.2-3.4); Absolute Monocyte Count 0.52 10^3/uL (0.1-0.8); Absolute Neutrophil Count 3.15 10^3/uL (1.2-6.7); Basophils % 0.9 %; Eosinophils % 2.1 %; HCT 35.2 % (36.0-46.0); Immature Grans % 0.3 %; Lymphocytes % 33.6 %; MCH 32.5 pg (27.0-33.0); MCHC 34.1 % (32.0-36.0); MCV 95 fL (80-95); MPV 8.1 fL (8.0-11.0); Neutrophils % 54.1 %; Platelet Count 442 10^3/uL (130-400); RBC 3.69 10^6/uL (3.93-5.22); RDW 14.2 % (11.7-14.6); RDW-SD 49.3 fL; WBC 5.81 10^3/uL (4.4-10.8)
[2024-06-26 09:49] LABS: D-Dimer 403 ng/mlFEU (<500)
== END 2024-06-26 08:31 | disposition home or self-care (01) ==
PROVIDERS: PCP Nurse Practitioner Family; Visit Provider Nurse Practitioner Family
DX: M79.605 Pain in left leg (principal); M79.89 Other specified soft tissue disorders; J18.9 Pneumonia, unspecified organism; D72.829 Elevated white blood cell count, unspecified; M25.562 Pain in left knee
CPT/HCPCS: 36415; 85025; 85379

== ENCOUNTER 2024-06-26 09:10 | Outpatient (CLI) | payer MEDICAID, SELFPAY ==
--- NOTE | 2024-06-26 08:30 | DI.RAD_ITS ---
Exam(s) XR KNEE LT 4V AP,LAT,ROXANA,PAT EXAM: XR KNEE LT 4V AP,LAT,ROXANA,PAT CLINICAL HISTORY: Left knee pain, M25.562; left leg pain, M79.605, M79.89. TECHNIQUE: 2D digital imaging was performed. Three views. COMPARISON: MR MRI L LOWER JOINT WO CONT from 12/19/2012 FINDINGS: BONES: No acute fracture is present. No bony destructive lesion is seen. JOINTS: The joint spaces are maintained. The knee is normally aligned. No joint effusion is seen. SOFT TISSUE: Normal. IMPRESSION: Normal radiographs of the left knee. DATA REPOSITORY: RADIATION DOSE DELIVERED:
--- NOTE | 2024-06-26 08:30 | DI.US_ITS ---
Exam(s) US LOWER EXTREMITY VENOUS LT EXAM: US LOWER EXTREMITY VENOUS LT CLINICAL HISTORY: LLE swelling and pain, M79.605, M79.89, r/o DVT. TECHNIQUE: Lower extremity venous ultrasound performed using grayscale, color-flow, and spectral Do ppler analysis. COMPARISON: CR XR KNEE LT 4V AP,LAT,ROXANA,PAT from 06/26/2024 FINDINGS: The common femoral, femoral and popliteal veins demonstrate normal compressibility, augmentation, and color Doppler. The posterior tibial and peroneal veins are patent. No saphenous vein thrombosis or other superficial venous thrombosis is seen. No hematoma or De Santiago's cyst is seen. There is a suprapatellar joint effusion. IMPRESSION: Suprapatellar joint effusion. No evidence of DVT. DATA REPOSITORY:
== END 2024-06-26 09:30 ==
LOC: DI 09:11
PROVIDERS: PCP Nurse Practitioner Family; Visit Provider Nurse Practitioner Family
DX: M79.605 Pain in left leg (principal); M79.89 Other specified soft tissue disorders; M25.562 Pain in left knee
CPT/HCPCS: 73564; 93971

== ENCOUNTER 2024-07-19 00:19 | Outpatient (CLI) | payer MEDICAID, SELFPAY ==
--- NOTE | 2024-07-19 09:11 | DI.RAD_ITS ---
Exam(s) XR CHEST 2V PA LATERAL EXAM: XR CHEST 2V PA LATERAL CLINICAL HISTORY: re-eval pneumonia,j18.9 TECHNIQUE: 2D digital imaging was performed. Two views. COMPARISON: CR XR CHEST 2V PA LATERAL from 05/13/2024 FINDINGS: HEART: Normal size. Aorta: Not dilated. PULMONARY VASCULATURE: Normal. MEDIASTINUM: Unremarkable. LUNGS: Clear. Clearing of previously noted lingular infiltrate. No new abnormalities. PLEURAL SPACE: No pleural effusion or pneumothorax. BONE:Unremarkable for age. SOFT TISSUES: Unremarkable. IMPRESSION: No acute abnormality. DATA REPOSITORY: RADIATION DOSE DELIVERED:
== END 2024-07-19 00:39 ==
LOC: DI 00:19
PROVIDERS: PCP Nurse Practitioner Family; Visit Provider Nurse Practitioner Family
DX: J18.9 Pneumonia, unspecified organism (principal)
CPT/HCPCS: 71046

== ENCOUNTER 2024-08-07 00:30 | Outpatient (CLI) | payer MEDICAID, SELFPAY ==
--- NOTE | 2024-08-07 07:15 | DI.MRI_ITS ---
Exam(s) MR LOWER JOINT LT WO EXAM: MR LOWER JOINT LT WO CLINICAL HISTORY: ? meniscus tear,lt knee effusion,m25.462. TECHNIQUE: Multiplanar multisequence MRI was performed. COMPARISON: MR MRI L LOWER JOINT WO CONT from 12/19/2012 CR XR KNEE LT 4V AP,LAT,ROXANA,PAT from 06/26/2024 FINDINGS: BONES: There is no fracture or contusion pattern. JOINTS: A moderate-sized joint effusion is present. Articular cartilage: Patellofemoral joint: Articular cartilage is unremarkable. Medial femoral tibial joint: Articular cartilage is unremarkable. Lateral femoral tibial joint: Articular cartilage is unremarkable. LIGAMENTS/TENDONS: Anterior Cruciate: Unremarkable. Posterior Cruciate: Unremarkable. Medial Collateral:edema around the medial collateral ligament but no visible tear. Lateral Collateral ligament complex: Unremarkable. Extensor mechanism: Unremarkable. Medial retinaculum: Unremarkable. Lateral retinaculum: Unremarkable. Popliteus: Unremarkable. MENISCI: The medial meniscus is unremarkable. The lateral meniscus is unremarkable. MUSCLES: Unremarkable. SOFT TISSUES: Mild anterior edema. IMPRESSION: Joint effusion. No evidence of meniscal tear. Edema around the medial collateral ligament but no visible tear. DATA REPOSITORY:
== END 2024-08-07 00:50 ==
LOC: DI 00:30
PROVIDERS: PCP Nurse Practitioner Family; Visit Provider Nurse Practitioner Family
DX: M25.462 Effusion, left knee (principal)
CPT/HCPCS: 73721

== ENCOUNTER 2024-08-29 11:22 | Outpatient (CLI) | payer MEDICAID, SELFPAY ==
[2024-08-29 12:21] LABS: ESR < 1 mm/hr (0-30)
[2024-08-29 13:09] LABS: C-Reactive Protein < 0.50 mg/dL (<or=0.5)
[2024-08-30 11:58] LABS: Lyme Ab w Rflx to Lyme Confirm Negative (Negative)
[2024-09-02 00:37] LABS: Anaplasma phagocytophilum Negative (Negative); B. miyamotoi PCR Negative (Negative); Babesia divergens/MO-1 Negative (Negative); Babesia duncani Negative (Negative); Babesia microti Negative (Negative); Ehrlichia chaffeensis Negative (Negative); Ehrlichia ewingii/canis Negative (Negative); Ehrlichia muris eauclairensis Negative (Negative)
== END 2024-08-29 11:23 | disposition home or self-care (01) ==
LOC: LBO 11:24
PROVIDERS: PCP Nurse Practitioner Family; Visit Provider Student in an Organized Health Care Education/Training Program
DX: M25.462 Effusion, left knee (principal)
CPT/HCPCS: 36415; 85652; 87798; 86140; 86618

== ENCOUNTER 2024-09-26 10:34 | Outpatient (CLI) | payer MEDICAID, SELFPAY ==
[2024-09-27 10:34] LABS: Cyclic Citrullinated Peptide <2.5 U/mL (<5.0)
[2024-09-27 13:16] LABS: ANA Interpretation Negative (Negative)
== END 2024-09-26 10:35 | disposition home or self-care (01) ==
LOC: LBO 10:34
PROVIDERS: PCP Nurse Practitioner Family; Visit Provider Student in an Organized Health Care Education/Training Program
DX: M25.462 Effusion, left knee (principal)
CPT/HCPCS: 36415; 86200; 86038; 86431

== ENCOUNTER 2024-10-24 09:25 | Day surgery (SDC) | payer MEDICAID, SELFPAY ==
[2024-10-24] VITALS (20 sets, daily range): BP systolic 111–171; BP diastolic 42–97; PULSE 64–86; RESP 11–18; TEMP 36.1–36.5; O2SAT 95–100; BMI 21.2
--- NOTE | 2024-10-24 07:12 | W.PM.DSUDISC ---
Date of service: 10/24/24 Discharge Plan Disposition Patient Disposition: Home Condition: Stable Discharge Details Attending Provider: Johnathon Barry Primary Care Provider: Ana Duran Home Meds and New Rx's Prescriptions: New naproxen 250 mg tablet 250 - 500 mg PO BID PRN (Reason: Moderate pain) Qty: 40 0RF aspirin 81 mg tablet,delayed release (DR/EC) 81 mg PO DAILY 14 Days Qty: 14 0RF oxycodone 5 mg tablet 5 - 10 mg PO Q4H PRN (Reason: Moderate to severe pain) Qty: 18 0RF Continued potassium chloride 20 mEq tablet extended release 20 meq PO DAILY Qty: 90 3RF ibuprofen 800 mg tablet 800 mg PO PRN Qty: 90 1RF losartan 100 mg tablet 100 mg PO DAILY Qty: 90 3RF valacyclovir 1 gram tablet 2,000 mg PO BID PRN (Reason: cold sores) Qty: 30 1RF Rx Instructions: Take 2 tablets twice a day for 1 day at first onset of symptoms hydrochlorothiazide 25 mg tablet 25 mg PO DAILY Qty: 90 3RF metoclopramide HCl [Reglan] 10 mg tablet 10 mg PO DAILY PRN penciclovir 1 % Cream 1 applic topical Q2H WHILE AWAKE Qty: 5 0RF Discharge Instructions Additional Instructions: Surgery: Left knee arthroscopy with medial femoral condyle chondroplasty, small partial lateral meniscectomy, and patellofemoral & anterior synovectomy (synovial biopsy) 10/24/2024 Activity: Weightbearing as tolerated. Advance range of motion as comfort allows. No knee brace or crutches needed as soon as comfortable. Recommend avoiding sports, pivoting, and squatting for 6-8 weeks. A physical therapy prescription will be sent electronically to start in 3 weeks. Prescriptions: Aspirin 81 mg take 1 daily to prevent a blood clot for 14 days Naproxen 250 mg take 1-2 every 12 hours with a meal as needed for moderate pain Oxycodone 5 mg take 1-2 every 4-6 hours as needed for severe pain You may use [id number]-vis-kyxsuvh Tylenol (acetaminophen) as needed for mild pain. These pain medications may be taken all at once or in different combinations as needed. Also, recommend Colace (docusate) as a stool softener as surgery and pain medicine cause constipation. You may try jccz-tht-iwimdef diphenhydramine (Benadryl) 25-50 mg nightly as a sleep aid Dressings: Leave dressing in place for 3 days. May then remove and leave open to air or cover incisions with Band-Aids. Leave the sticky Steri-Strips in place until they fall off or remove them after you shower. May shower after 5 days. Follow-up: 10-[address] Barry You may take off the leg compression stockings this evening at home. You may also leave them on a few days longer if you have a history of leg swelling or edema. Let us know right away if you develop any redness, drainage, fevers, chest pain, or trouble breathing. Do not drink alcohol or drive for at least 24 hours after anesthesia. Please call the office during business hours with any questions or concerns. Stand Alone Forms: Anesthesia Discharge Inst., Yudelka Petersen (U) Referrals: Johnathon Barry MD [ [facility] STAFF PHYSICIAN, Orthopaedic Surgical] - 11/05/24 9:15 am Discharge Orders Discharge Orders: Discharge Order (Routine); Ordered 10/24/24 Ordered By: Skip Clark DS: Diagnosis Discharge Diagnosis (1) Effusion, left knee: Status: Acute (2) Chondromalacia of left knee: Status: Acute
--- NOTE | 2024-10-24 07:23 | ROE_ITS ---
Operative Note Operative Note PRE-OP DIAGNOSIS: Left knee 1. Effusion 2. Possible rheumatoid arthritis 3. Occult internal derangement POST-OP DIAGNOSIS: same PROCEDURE: Left knee 1. Partial lateral meniscectomy, CPT #36861 2. Greater than 2 compartment synovectomy, CPT #18307: Patellofemoral and anterior with synovial biopsy 3. Chondroplasty, CPT #80748: Medial femoral condyle SURGEON: Johnathon Barry CATHODIC PROTECTION TECHNICIAN: None None ANESTHESIA TYPE: Local By Surgeon and General LMA/ETT Refer to Anesthesia Record ESTIMATED BLOOD LOSS: 5 PATHOLOGY: none sent TOURNIQUET TIME: 0 Patient was transported to: PACU Patient's condition: stable Indications: Please see complete medical record for details. 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 Moderately significant diffuse posterior to a lesser extent distal medial femoral condyle chondromalacia with mild to moderate thickness irregular cartilage surface and some engaging loose cartilage flaps. Largely intact medial meniscus. Anterior intercondylar synovitis and small amount of adhesions. Small lateral meniscus white zone body tearing. Intact lateral cartilage. No significant effusion, normal?. Joint fluid. Normal?appearing synovium. Procedure Description: In the operating room, general anesthesia was induced. The patient was positioned supine on the operating room table. All bony prominences were well- padded. Preoperative antibiotics were administered. The knee was prepped and draped in the usual sterile fashion. The correct patient, procedure, and side of the procedure were all verified prior to incision. Exam under anesthesia was performed. 10 cc of 0.25% bupivacaine containing epinephrine was infiltrated about the planned anteromedial and anterolateral knee arthroscopy portals. The portals were established and a complete diagnostic arthroscopy was performed with relevant findings detailed above. The patient needed additional local anesthetic so the remainder 20 cc was infiltrated about the compartments, anterior to condyle area, and medial lateral knee. A pituitary rongeur was used to grasp the anterior synovitis for synovial biopsy permanent specimen rule out rheumatoid arthritis. The knee was not overly injected at all really and the engaging synovium patellofemoral and anterior areas was not impressively red or pathologic appearing. Mechanical shaver was then used to remove engaging synovium from the patellofemoral compartment and suprapatellar area with the knee in extension and then in flexion from the anterior intercondylar area resecting some adhesions into the intercondylar area. The torpedo shaver was then used to smooth irregular cartilage prominences and resect irregular cartilage flaps that were unstable about the posterior medial femoral condyle and then to a lesser extent the distal medial femoral condyle. And then in extension and flexion working through medial and lateral portals the central to medial trochlear lesion was able to be debrided of unstable irregular cartilage lightly as well. In the [id number] position, the lateral meniscus white zone tearing fraying was lightly trimmed to a smooth stable margin with a torpedo shaver. The knee was copiously irrigated with arthroscopic fluid until there was a clear effluent before being drained of all fluid. The anteromedial and anterolateral portals were closed in 3-0 Monocryl in a buried interrupted fashion. Mastisol, Steri-Strips, and 4 x 4 gauze were applied over the incisions. The knee was then wrapped gently with an BRITTNEY comressive bandage. The patient awoke from anesthesia without complication and was transferred to the recovery room in a stable condition. Although the medial meniscus looked largely regular and okay, in the moderately significant diffuse medial femoral condyle chondromalacia is likely to cause progressive degenerative symptoms. I would consider future partial medial knee replacement if there is isolated medial discomfort, but for any diffuse discomfort and/or large effusions total knee arthroplasty might be best given the small but moderate thickness trochlear chondromalacia. Date of Procedure: 10/24/24
[2024-10-24] MEDS: Lactated Ringers 1,000 ML 30 ML IV (09:59)
--- NOTE | 2024-10-24 10:16 | W.ANESPRE ---
General Info Date of Service Date Performed: 10/24/24 Height: 5 ft 2 in Weight: 52.7 kg Body Mass Index (BMI): 21.2 Surgical Procedure: Operation Date: 10/24/24 10:55 Proposed Procedure Side Surgeon p Knee Arthroscopy Left Johnathon Barry MD Meds Allergies and Home Medications Allergies Allergy/AdvReac Type Severity Reaction Status Date / Time codeine AdvReac Severe GI UPSET Verified 10/24/24 09:48 oxycodone AdvReac Severe GI UPSET Verified 10/24/24 09:48 amlodipine AdvReac Mild edema Verified 10/24/24 09:48 Home Medication ?Medication ?Instructions ?Recorded ibuprofen 800 mg tablet 800 mg PO PRN #90 tabs 11/26/20 hydrochlorothiazide 25 mg tablet 25 mg PO DAILY #90 tabs 01/11/24 losartan 100 mg tablet 100 mg PO DAILY #90 tabs 02/23/24 penciclovir 1 % topical cream 1 applic topical Q2H WHILE AWAKE 05/18/24 #5 grams valacyclovir 1 gram tablet 2,000 mg (2 x 1 gram) PO BID PRN 05/27/24 cold sores #30 tabs potassium chloride 20 mEq 20 meq PO DAILY #90 tabs 06/26/24 tablet,extended release metoclopramide HCl 10 mg tablet 10 mg PO DAILY PRN 10/23/24 (Reglan) Current Visit Medications: Current Medications Generic Name Dose Route Start Last Admin Trade Name Freq PRN Reason Stop Dose Admin Ringer's Solution 1,000 mls @ 30 mls/hr 10/24/24 06:00 10/24/24 09:59 IV 10/24/24 23:59 30 mls/hr INFUSION MELISSA Administration Cefazolin Sodium/Dextrose 2 gm in 50 mls @ 100 mls/hr 10/24/24 06:00 Ancef Duplex IVPB 10/24/24 23:59 PREOP MELISSA Tranexamic Acid/Sodium Chloride 1,000 mg in 100 mls @ 600 mls/hr 10/24/24 06:00 IVPB 10/24/24 23:59 PREOP MELISSA IV Miscellaneous Supplies 1 each 10/24/24 06:00 Iv Access IV 10/24/24 23:59 DIRECTED MELISSA Oxycodone HCl 0 mg 10/24/24 07:13 Oxycodone 5 Mg Tab PO 11/23/24 07:12 Q3H PRN PRN Pain Sodium Chloride 0 ml 10/24/24 06:00 Normal Saline Flush 10 Ml Syr IV 10/24/24 23:59 PRN PRN Sodium Chloride 0 ml 10/24/24 06:00 Normal Saline 10 Ml Vial IJ 10/24/24 23:59 DIRECTED PRN Sterile Water 0 ml 10/24/24 06:00 Water,Injection,Sterile 10 Ml Vial IJ 10/24/24 23:59 DIRECTED PRN PFSH Active Problems Active Problems: Problem Status Onset Code Effusion, left knee Acute ~05/2024 M25.462 Essential hypertension Chronic I10 Unintentional weight loss Chronic R63.4 Cigarette smoker Chronic F17.210 Migraine headache with aura Chronic G43.109 Colon, diverticulosis Chronic K57.30 Oral herpes simplex infection Chronic B00.2 Medical History Medical History Tubular adenoma of colon On 2016 and 2021 colonoscopies Hx of pancreatitis (~2016) Syncope From amlodipine Gastroesophageal reflux disease Medical History Comments:: pt states 2-4 drinks per day Surgical History Surgical History History of hand surgery left hand, tumor removed from finger S/P colonoscopy (~02/2022) S/P knee surgery S/P recurrent ventral herniorrhaphy (01/09/19) 01/19, ventrral/umbilical hernia required revision, chronic sensitivity around umbilicus H/O thumb surgery on right side only History of section History of umbilical hernia repair 2018 2013 Status post LEEP (loop electrosurgical excision procedure) of cervix Status post laparoscopic hysterectomy Cervix and ovaries remain Tobacco Smoking/Tobacco Use Status: Former Tobacco Use Passive smoking exposure: Yes Second hand exposure: Yes Alcohol Alcohol Intake: current Alcohol intake frequency: a few times a week Alcohol type: beer Substance Use Substance use: Never Substance use type: does not use Vital Signs and Lab Results Vital Signs Most Recent Vital Signs in EMR: Most Recent Vital Signs Temp Pulse Resp BP Pulse Ox 36.4 C L 83 16 171/85 H 100 10/24/24 09:43 10/24/24 09:43 10/24/24 09:43 10/24/24 09:43 10/24/24 09:43 Imaging and Studies Imaging and Studies Study information below may be from another EMR and interpreted by another provider. Please see original notes in EMR for more complete details. EKG Summary: Conclusion Sinus rhythm...normal P axis, V-rate 60- 99 02/02/22 Anesthesia Assessment and Plan Anesthesia History Personal History: PONV Family History: No Family History of Anesthesia Complications Exercise Tolerance Exercise Tolerance: Metabolic Equivalents>4 Pertinent Negatives Pertinent Negatives: No Symptoms of GERD Cardiac & Pulmonary Exam Cardiac Exam: Normal S1/S2 Heart Sounds Pulmonary Exam: Clear Bilateral Breath Sounds Implantable Cardiac Device Does patient have a Pacemaker or an ICD?: No Airway Exam Known Difficult Airway: No Mallampati Class: 2 Mouth Opening: Normal (> 3cm) Thyromental Distance: Greater than 3 cm Neck Range of Motion: Full ROM Neck Circumference: Normal Teeth Condition: Normal Dentition ASA Classification ASA Score: ASA 2 Emergency Case?: No NPO Status NPO Status: NPO Clears >2 hours, Solids >8 hours Anesthesia Plan Resuscitation Status: Full Code Anesthesia Technique: General Anesthesia Airway Planned: LMA Monitors Used: Standard Monitors
[2024-10-24] MEDS: ceFAZolin 2 GM/50 ML BAG IVPB (10:34)
[2024-10-24] MEDS: TRANEXAMIC ACID/SOD. CHL. 1,000 MG/100 ML BAG 600 MG IVPB (10:48)
--- NOTE | 2024-10-24 10:53 | SYNOVIUM_PTH ---
PATIENT: Natali Ibanez LOC: [facility] U#:[id number] AGE/SX: 59/F ROOM: RE10/24/[address]: Johnathon Barry MD : [id number] BED: DIS: 10/24/2024 SPEC #: [id number] RECD: 10/24/24 13:12 STATUS: COLEMAN REQ #: [id number] LENORA: 10/24/24 10:[address]: Johnathon Barry DEPT: Surgical Specimen RECD BY: Nasreen Murray ENTERED: 10/24/24 13:13 SP TYPE: SYNOVIUM OTHR DR: JONATHAN Anthony Tissues: 1 - SYNOVIUM/IAL Procedures: GROSS AND MICRO LEVEL 4 Comments: [id number]
[2024-10-24] MEDS: Bupivacaine 0.25% Pres-Free W/EPI 30 ML VIAL (10:57)
[2024-10-24] MEDS: EPINEPHrine 10 MG/10 ML ML (10:58)
[2024-10-24] MEDS: Ketorolac 30 MG/ML VIAL (11:35)
[2024-10-24] MEDS: ACETAMINOPHEN 1,000 MG/100 ML BAG 400 MG IVPB (11:39)
--- NOTE | 2024-10-24 12:13 | W.ANESPOSTOP ---
Postoperative Evaluation Date, Time and Location Date Performed: 10/24/24 Time Performed: 12:13 Patient Location: Day Surgery Unit Vital Signs Most Recent Imported Vital Signs: Most Recent Vital Signs Temp Pulse Resp BP Pulse Ox 36.1 C L 72 16 130/59 L 97 10/24/24 11:59 10/24/24 11:59 10/24/24 11:59 10/24/24 11:59 10/24/24 11:59 Pain Score Most Recent Pain Score: Most Recent Pain Score Pain Level 4 10/24/24 11:59 Assessment Mental Status: Awake (Alert & Oriented to Patient Baseline) Airway and Respiratory Function: Patent airway with normal (patient baseline) respiratory exam Cardiovascular Function: Hemodynamically Stable Hydration Status: Adequately Hydrated Nausea & Vomiting: No Nausea or Vomiting Pain: Pain is tolerable per patient Peripheral Nerve Block: Patient did not receive a nerve block
== END 2024-10-24 12:53 | disposition home or self-care (01) ==
LOC: SUR 09:25
PROVIDERS: PCP Nurse Practitioner Family; Visit Provider Student in an Organized Health Care Education/Training Program
PROC: (CPT 29870; principal; 2024-10-24 10:45)
DX: M25.462 Effusion, left knee (principal); M94.262 Chondromalacia, left knee; M23.92 Unspecified internal derangement of left knee; I10 Essential (primary) hypertension
CPT/HCPCS: 29876; 29881; 88305; J0131; J0690; J1100; J1885; J2003; J2405; J2704; J3010